=== PATIENT | male | born 1970 | race Caucasian/White ===

== ENCOUNTER 2016-10-01 09:22 | Day surgery (SDC) | payer MEDICAID ==
[~2016-10-01 09:22] MED LIST: ACETAMINOPHEN 500 MG TABLET PO PRN; HYDROmorphone HCL 2 MG/ML VIAL IV PRN; MAG HYDROX/ALUMINUM HYD/SIMETH 30 ML UDC PO PRN; MAGNESIUM HYDROXIDE 30 ML UDC PO PRN; ONDANSETRON HCL/PF 2 MG/ML VIAL IV PRN; PROMETHAZINE HCL 25 MG in DEXTROSE 5 % IN WATER 50 ML IV PRN; RINGERS SOLUTION,LACTATED 1,000 ML IV PRN; ROPIVACAINE HCL/PF 40 MG in NORMAL SALINE 16 ML IJ PRN; ZOLPIDEM TARTRATE 5 MG TABLET PO PRN; ceFAZolin SODIUM 1 GM VIAL IV PRN; diphenhydrAMINE HCL 50 MG/ML VIAL IV PRN
[2016-10-01] MEDS ORDERED: RINGERS SOLUTION,LACTATED 1,000 ML IV ONE (09:55)
[2016-10-01] MEDS ORDERED: BUPIVACAINE HCL/EPINEPHRINE 50 ML VIAL IJ ONE ×2 (10:30)
--- NOTE | 2016-10-01 11:13 | OR ---
Operative Report - Dictated Report Narrative: Date: 10/01/2016 Physician: Jeffrey Burnett M.D. Fitness And Wellness Manager: Kailash Clark PA-C Preoperative diagnosis: Left Knee pain Postoperative diagnosis: Left knee pain Procedure: Left knee diagnostic arthroscopy Anesthesia: MAC Plus local Complications: None Estimated blood loss: Minimal Tourniquet time: None Specimens: None Retained implants: None Drains: None Indications: Fernandez Is a 46 year-old male who has been followed in my clinic with complaints of knee pain consistent with suspected loose body versus medial meniscal pathology. He has undergone 2 prior medial meniscectomy as continues to have pain and catching/locking episodes. Physical exam and diagnostic imaging were consistent with these complaints and concern for possible medial meniscal pathology. Conservative measures have failed including, but not limited to, passage of time, activity modification, medications, and injections. The risks , benefits, and alternatives were discussed in clinic. The risks being , bleeding, infection, blood clots, nerve, tendon, ligament, blood vessel injury, persistent pain, arthrosis, need for additional procedures, and persistent symptoms. Consent was obtained in the clinic. Procedure: After marking the correct extremity in the preoperative holding area, a timeout was performed in the operating room. IV antibiotics consisting of 2 g of Ancef were administered prior to the procedure. A well-padded tourniquet was applied to the operative upper thigh. The leg was prepped and draped in a standard sterile fashion. 0.5% Marcaine with epinephrine was infused into the projected portal sites as well as the intra-articular space. A elvis incision was made for inferior lateral portal. A blunt trocar and cannula was introduced into the knee. The suprapatellar pouch revealed no loose bodies with a small medial plica. The medial patella facet showed no chondral changes. The lateral patella facet showed no chondral changes. The trochlea showed no chondral changes. The medial gutter revealed no loose bodies. The medial joint space was then entered utilizing a lateral post and valgus stress. A spinal needle was utilized for guidance into placement of an anterior medial portal. This was placed just superior to the medial meniscus ensuring that we could reach the posterior aspect of the medial joint space. A elvis incision was made in the site, and the probe was introduced to the knee. The medial joint space was examined, and the medial femoral condyle showed grade 2 chondral changes over the weightbearing surface. The medial tibial plateau showed grade 1 and small areas of grade 2 chondral change. The medial meniscus was probed and showed evidence of previous subtotal meniscectomy. The posterior horn and posterior half of the body were no longer present. The remaining anterior aspect of the body and anterior horn had some mild peripheral fraying but no significant tearing or instability with probing. The notch was then examined, and the ACL was noted to be intact. The PCL was noted to be intact. The lateral joint space was then examined using a varus force in the figure 4 position. Lateral femoral condyle showed no chondral changes. Lateral tibial plateau showed no chondral changes. The lateral meniscus showed no tearing and was stable to probing. The lateral gutter showed no loose bodies. Having identified the surgical pathology, a shaver was utilized in order to debride the medial plica. Once it was felt that we adequately addressed the pathology, the knee was thoroughly irrigated. The fluid was evacuated ensuring that we have removed all meniscal, chondral, and any other loose bodies. A final evaluation of the joint showed no additional pathology. The fluid was then evacuated of the knee , and the trocar and camera were removed from the joint. The wounds were closed with interrupted nylon after placing 20 mL of 0.2% ropivacaine into the joint. Dressings consisting of Xeroform, 4 x 4, ABD, soft roll, and an Amilcar were applied. All sponge, needle, blade, and instrument counts were correct prior to closing the wounds. The patient was awoken and transferred to the post -anesthesia care unit in stable condition.
[2016-10-01] MEDS ORDERED: HYDROcodone/ACETAMINOPHEN 1 EACH TABLET PO PRN (11:14)
[2016-10-01 12:11] VITALS: BP 126/70
[2016-10-01] MEDS ORDERED: SENNOSIDES/DOCUSATE SODIUM 1 TAB TABLET PO SCH (21:00)
== END 2016-10-01 09:23 | disposition home or self-care (01) ==
LOC: AMB 09:22
PROVIDERS: ATTEND Orthopaedic Surgery
PROC: 0SJD4ZZ Inspection of Left Knee Joint, Percutaneous Endoscopic Approach (ICD-10-PCS; principal; 2016-10-01 11:15)
DX: M25.562 Pain in left knee (principal)

== ENCOUNTER 2016-10-12 22:02 | Emergency (ER) | payer MEDICAID ==
--- NOTE | 2016-10-13 | ERNOTE ---
Abdominal HPI - General Chief Complaint: Abdominal Pain Time Seen by Provider: 10/12/16 23:52 Source: patient Exam Limitations: no limitations - Immun/Allergies/Home Medications Immunizatons: IMMUNIZATION HX Immunizations Up to Date No History of Influenza Vaccine Yes Hx Pneumococcal Vaccination No Allergies/Adverse Reactions: Allergies naproxen Adverse Reaction (Mild, Verified 10/12/16 22:41) "severe heartburn" Home Medications: HOME MEDICATIONS Ibuprofen [Motrin] 200 mg PO Q6H PRN 09/25/16 [Last Taken Unknown] - History of Present Illness Narrative: Pt had right flank pain and was seen in the walk-in clinic earlier today. They found pancreatic enzymes elevated and ordered U/S. Pancreas was suboptimally seen. No hydronephrosis was seen in either kidney Timing: constant Quality: moderate Activities at Onset: none Prior Abdominal Problems: Present: other - chronic abdominal pain and has had multiple colonoscopies due to father having colon CA. Review of Systems - Review of Systems Constitutional: Absent: recent illness, fever, chills EYE: Present: no symptoms reported ENT: Present: no symptoms reported Respiratory: Present: no symptoms reported Cardiology: Present: no symptoms reported Gastrointestinal/Abdominal: Present: See HPI, abdominal pain - chronic and intermittent, not really changed lately Genitourinary: Present: See HPI. Absent: frequency, pain, dysuria Musculoskeletal: Present: back pain Neurological: Present: no symptoms reported Endocrine: Present: no symptoms reported Hematologic/Lymphatic: Present: no symptoms reported Psych: Present: no symptoms reported - Patient's Past Medical History Patient History - Medical: Arthritis, Headache, Migraines, Other - chronic abdominal pain Patient History - Cardiac/Respiratory: No pertinent hx Patient History - Cancer: No Hx of Cancer Patient History - Surgical Procedures: Colonoscopy, EGD, Other Patient History - Other: None - Family History Mother Family History - Medical: Diabetes Type 2, Other Family History - Cardiac/Respiratory: No pertinent hx Family History - Cancer: Other Father Family History - Medical: No pertinent hx Family History - Cardiac/Respiratory: No pertinent hx Family History - Cancer: Colon - Social History Living Situations: home Smoking Status: Current every day smoker Alcohol Use: none Drug Use: marijuana - Immunizations Immunizations Up to Date: No Hx Pneumococcal Vaccination: No History of Influenza Vaccine: Yes Physical Exam - Physical Exam General Appearance: Present: wd/wn, alert, no apparent distress Neck: Present: normal inspection, nontender, supple Respiratory: Present: no respiratory distress, no accessory muscle use Cardiovascular/Chest: Present: regular rate, rhythm, no murmur Gastrointestinal/Abdominal: Present: nondistended, soft, tenderness - epigastric mild. Absent: guarding, rebound Back Exam: Present: CVA tenderness (R) - mild Extremity Exam: Present: normal inspection, non-tender, no edema, normal range of motion Neurological Exam: Present: alert, oriented, normal mood/affect, no motor/ sensory deficits Skin Exam: Present: normal color, warm/dry Lymphatic Exam: Present: no adenopathy ED Progress - Results and Orders Patient's Lab Results:: I have reviewed the patient's lab results. Results and Orders: Laboratory Tests 10/12/16 10/12/16 14:50 14:50 WBC 10.4 Hgb 16.7 Hct 49.8 Plt Count 288 Sodium 140 Potassium 4.6 D Chloride 104 Carbon Dioxide 27.9 Anion Gap 12.7 BUN 11 Creatinine 1.10 Random Glucose 91 Calcium 9.3 Total Bilirubin 0.5 AST 10 ALT 25 Alkaline Phosphatase 69 C-Reactive Prot, Quant 0.3 Total Protein 7.9 Albumin 4.2 Amylase 120 H Lipase 1022 H - Vital Signs Patient's Vital Signs:: I have reviewed the patient's vital signs. Vital Signs: Vital Signs 10/12/16 22:36 Temperature 36.1 C L Pulse Rate 80 Respiratory 18 Rate Blood Pressure 166/91 O2 Sat by Pulse 97 Oximetry - CT/Ultrasound CT/Ultrasound Narrative: No pancreas abnormalities noted. possible distal illeum/ proximal cecum mild thickening but probably artifact. - Progress/Reassessment Chief Complaint: Abdominal Pain Progress:: Improved - Despite elevated enzymes pt is relatively mildly symptomatic. Pt stopped and got a cheeseburger before coming back to the hospital this time. He had no increase in his symptoms from eating. Discussed clear liquid diet to help the pancreas rest. Discussed warning signs that he should return to the ED for. Departure - Departure Clinical Impression: Pancreatitis Qualifiers: Chronicity: acute Pancreatitis type: idiopathic Acute pancreatitis complication : no infection or necrosis Qualified Code(s): K85.00 - Idiopathic acute pancreatitis without necrosis or infection Disposition: Home Follow Up Needed Condition: Fair Instructions: Acute Pancreatitis, [id number], Low-Fat Diet for Pancreatitis or Gallbladder Conditions Additional Instructions: clear liquids for 2-3 days. Return to ER if you have increasing pain, nausea or vomiting. Have labs drawn tomorrow morning. See your regular doctor as soon as possible for follow up on repeat lab work
[2016-10-13] MEDS ORDERED: DIATRIZOATE MEGLU/DIATRIZO SOD 30 ML BTL ONE (00:21)
[2016-10-13] MEDS ORDERED: DIATRIZOATE MEGLU/DIATRIZO SOD 30 ML BTL PO ONE (00:30)
[2016-10-13] MEDS ORDERED: ONDANSETRON HCL/PF 2 MG/ML VIAL IV ONE (00:45)
[2016-10-13] MEDS ORDERED: NALBUPHINE HCL 20 MG/ML AMPUL IV ONE (00:46)
[2016-10-13] MEDS ORDERED: NALBUPHINE HCL 20 MG/ML AMPUL ONE (01:10)
[2016-10-13] MEDS ORDERED: ONDANSETRON HCL/PF 2 MG/ML VIAL ONE (01:10)
[2016-10-13 03:59] VITALS: BP 132/83
== END 2016-10-13 03:41 | disposition home or self-care (01) ==
LOC: ER 22:02
DX: K85.00 Idiopathic acute pancreatitis without necrosis or infection (principal); F17.200 Nicotine dependence, unspecified, uncomplicated

== ENCOUNTER 2016-12-15 08:38 | Inpatient (IN) | payer MEDICAID ==
[2016-12-15] MEDS ORDERED: DIATRIZOATE MEGLU/DIATRIZO SOD 30 ML BTL ONE (09:30)
[2016-12-15 09:31] LABS: Hematocrit 43.6 % (42.0-52.0); Hemoglobin 14.9 gm/dL (13.5-18.0); Mean Cell Volume 87.4 fl (78-100); Mean Corpuscular Hemoglobin 29.9 pg (27-31); Mean Corpuscular Hgb Conc 34.2 g/dl (32-36); Neutrophil # 10.3 K/mm3 (1.3-6.0); Neutrophil % 71.2 % (42-75.0); Platelet Count 299 K/mm3 (150-450); Red Blood Count 4.99 M/mm3 (4.7-6.0); Red Cell Distribution Width 12.4 % (11.5-14.0); White Blood Count 14.5 K/mm3 (4.0-10.5)
[2016-12-15] MEDS ORDERED: DIATRIZOATE MEGLU/DIATRIZO SOD 30 ML BTL PO ONE (09:42)
[2016-12-15 09:51] LABS: Urine Bilirubin Negative (NEGATIVE); Urine Blood 50 /ul (NEGATIVE); Urine Ketone Negative (NEGATIVE); Urine Nitrite Negative (NEGATIVE); Urine Protein 15 mg/dL (NEGATIVE); Urine Specific Gravity >=1.030 SP.GR. (1.005-1.030); Urine Urobilinogen Normal (NORMAL)
[2016-12-15 09:52] LABS: Albumin * 3.6 gm/dl (3.4-5.0); Anion Gap 14.4 mmol/L (6.8-13.8); BUN/Creatinine Ratio 11.2 (9.0-21.6); Bilirubin, Total 0.7 mg/dL (0.0-1.1); Ca. Corrected For Albumin 8.8 mg/dL (8.4-10.2); Calcium * 8.8 mg/dL (7.9-10.9); Carbon Dioxide 24.5 mmol/L (24-32.6); Potassium 3.9 mmol/L (3.4-4.6); Total Protein 7.9 gm/dL (6.2-8.2)
--- NOTE | 2016-12-15 09:53 | ERNOTE ---
Abdominal HPI - General Chief Complaint: Abdominal Pain Time Seen by Provider: 12/15/16 09:32 Source: patient - Immun/Allergies/Home Medications Immunizatons: IMMUNIZATION HX Immunizations Up to Date Yes History of Influenza Vaccine Yes Hx Pneumococcal Vaccination No Allergies/Adverse Reactions: Allergies naproxen Adverse Reaction (Mild, Verified 12/15/16 09:15) "severe heartburn" Home Medications: HOME MEDICATIONS Gabapentin 900 mg PO TID 12/15/16 [Last Taken Unknown] - History of Present Illness Narrative: patient has a history of diverticulitis. He has had abd pain since yesterday morning. he had some nausea then but none now. He has no diarrhea. Review of Systems - Review of Systems Constitutional: Present: malaise EYE: Present: no symptoms reported ENT: Present: no symptoms reported Respiratory: Present: no symptoms reported Cardiology: Present: no symptoms reported Gastrointestinal/Abdominal: Present: See HPI - Patient's Past Medical History Patient History - Medical: Arthritis, Headache, Migraines, Other Patient History - Cardiac/Respiratory: No pertinent hx Patient History - Cancer: No Hx of Cancer Patient History - Surgical Procedures: Colonoscopy, EGD, Other Patient History - Other: None - Family History Mother Family History - Medical: Diabetes Type 2, Other Family History - Cardiac/Respiratory: No pertinent hx Family History - Cancer: Other Father Family History - Medical: No pertinent hx Family History - Cardiac/Respiratory: No pertinent hx Family History - Cancer: Colon - Social History Living Situations: home Abuse History: No History of abuse Psych History: No pertinent hx Smoking Status: Current every day smoker Have you smoked in the past 12 months: Yes Alcohol Use: none Drug Use: marijuana - Immunizations Immunizations Up to Date: Yes Hx Pneumococcal Vaccination: No History of Influenza Vaccine: Yes Physical Exam - Physical Exam General Appearance: Present: wd/wn, alert, mild distress - due to abdominal pain Eye Exam: Normal inspection: bilateral, PERRL: bilateral, EOMI: bilateral Ears, Nose, Throat: Present: normal ENT inspection Neck: Present: normal inspection, nontender Respiratory: Present: no respiratory distress, normal breath sounds, no accessory muscle use, chest nontender, lungs clear Cardiovascular/Chest: Present: regular rate, rhythm, no murmur, normal peripheral pulses Gastrointestinal/Abdominal: Present: other - pt has distant bowel sounds. his belly is slightly tense and diffusely tender on direct palpation. There appears to be no rebound on my exam. he is too uncomfortable for me to palpate deep to feel for masses. Extremity Exam: Present: normal inspection Neurological Exam: Present: alert, oriented, normal mood/affect, no motor/ sensory deficits ED Progress - Results and Orders Patient's Lab Results:: I have reviewed the patient's lab results. - Vital Signs Patient's Vital Signs:: I have reviewed the patient's vital signs. Vital Signs: Vital Signs 12/15/16 09:10 Temperature 37.4 C Pulse Rate 84 Respiratory 16 Rate Blood Pressure 133/61 O2 Sat by Pulse 97 Oximetry - Progress/Reassessment Chief Complaint: Abdominal Pain Plan - Plan Plan: pt has Diverticulitis. Dr. Mosqueda. pt is to be admitted to [facility] service for care with Dr. Mosqueda to consult Departure - Departure Clinical Impression: Diverticulitis Qualifiers: Diverticulitis site: large intestine Diverticulitis bleeding: without bleeding Diverticulitis complication: with perforation Qualified Code(s): K57.20 - Diverticulitis of large intestine with perforation and abscess without bleeding Disposition: [facility] Condition: Good
[2016-12-15 10:04] LABS: Urine Appearance Clear; Urine Bacteria None Seen; Urine Color Dark Yellow; Urine WBC TRACE /hpf (0-5)
[2016-12-15 10:05] LABS: Urine Mucus Many - 3+
[2016-12-15] MEDS ORDERED: NORMAL SALINE 1,000 ML IV ONE (10:52)
[2016-12-15] MEDS ORDERED: ONDANSETRON HCL/PF 2 MG/ML VIAL IV ONE (12:10)
[2016-12-15] MEDS ORDERED: HYDROmorphone HCL 1 MG/ML DISP.SYRIN IV ONE ×2 (12:10→14:59)
[2016-12-15] MEDS ORDERED: HYDROmorphone HCL 1 MG/ML DISP.SYRIN ONE (12:11)
[2016-12-15] MEDS ORDERED: ONDANSETRON HCL/PF 2 MG/ML VIAL ONE (12:11)
--- NOTE | 2016-12-15 13:18 | CONS ---
[facility] - General Date of Service: 12/15/16 Narrative: Pt is a very pleasant 46 y/o white male who presents to the ER with c/o nausea and LLQ abdominal pain. He was admitted for 4 days about 3 weeks ago in [place], [place] with what he describes as perforated diverticulitis. He states he was on an expensive IV antibiotic that starts with a "V" and that post discharge took oral antibiotics for two weeks. He had a follow-up visit scheduled with a placement secretary on Wednesday of this week. His father has a history of colon cancer and he has already begun surveillance colonoscopy, his last being about 5 years ago. He has a known history of diverticular disease from that scope. He received a call from [place], [place] that his mother is imminently terminal from cirrhosis of the liver but was in so much pain that he reported here instead. His WBC is 14K with shift. CT shows a contained perf into the sigmoid mesentery without abscess. There is thickening of the sigmoid colon and malignancy could not be ruled-out. There is no free air. Source: patient, RN/MD, old records Exam Limitations: no limitations - History of Present Illness Timing/Duration: constant Severity: severe Associated Symptoms: nausea Allergies/Adverse Reactions: Allergies naproxen Adverse Reaction (Mild, Verified 12/15/16 09:15) "severe heartburn" Home Medications: Home Medications Medication Instructions Recorded Last Taken Gabapentin 900 mg PO TID 12/15/16 Unknown - Patient's Past Medical History Patient History - Medical: Arthritis, Headache, Migraines, Other Patient History - Cardiac/Respiratory: No pertinent hx Patient History - Cancer: No Hx of Cancer Patient History - Surgical Procedures: Colonoscopy, EGD, Other Patient History - Other: None - Family History Mother Family History - Medical: Diabetes Type 2, Other Family History - Cardiac/Respiratory: No pertinent hx Family History - Cancer: Other Father Family History - Medical: No pertinent hx Family History - Cardiac/Respiratory: No pertinent hx Family History - Cancer: Colon - Social History Living Situations: home Abuse History: No History of abuse Psych History: No pertinent hx Smoking Status: Current every day smoker Have you smoked in the past 12 months: Yes Alcohol Use: none Drug Use: marijuana - Immunizations Immunizations Up to Date: Yes Hx Pneumococcal Vaccination: No History of Influenza Vaccine: Yes Procedures DRAINAGE OF RIGHT LOWER LEG SKIN, EXTERNAL APPROACH (04/04/16) INSPECTION OF LEFT KNEE JOINT, PERC ENDO APPROACH (10/01/16) Physical Examination - Exam Vital Signs: Vital Signs - Last Taken Temp 36.4 C L 12/15/16 12:46 Pulse 78 12/15/16 12:46 Resp 18 12/15/16 12:46 BP 135/91 12/15/16 12:46 Pulse Ox 99 12/15/16 12:46 O2 Oxygen Delivery Method Room Air Constitutional: Present: Alert, Oriented x3, Cooperative, Mild distress ENT Exam: Present: normal ENT inspection Eye Exam: bilateral eye: normal inspection Neck: Present: non-tender, full range of motion, normal inspection, trachea midline Respiratory: Present: normal breath sounds, no respiratory distress Cardiovascular/Chest: Present: regular rate, rhythm Abdomen: Present: Normal bowel sounds, guarding - LLQ. Non-tender in other quadrants /Rectal: Present: Exam deferred Extremity: Present: normal inspection Skin Exam: Present: normal color, warm/dry Neurologic: Present: no motor/sensory deficits - Assessments/Findings (1) Diverticulitis of large intestine with perforation without bleeding Problem: Acute (2) Localized peritonitis Diagnosis(s): A: Confined perforation of sigmoid diverticulitis without abscess. Localized peritonitis Family history colon CA P: Non-operative attempt at management is reasonable. Admission and serial examination will be required. Cannot sanction a trip to [place], [place] at this time unfortunately. We discussed numerous possible outcomes. If non-op is successful will need colonoscopy to r/o malignancy and consider elective resection of diseased sigmoid. If abscess develops may require percutaneous drainage. If perforation becomes free with generalized peritonitis a Rohit procedure will be required. He seems to understand and agrees to admission by the Hospitalist service. Problem: Acute
[2016-12-15] MEDS ORDERED: ONDANSETRON HCL/PF 2 MG/ML VIAL IV PRN (14:59)
[2016-12-15] MEDS ORDERED: diphenhydrAMINE HCL 50 MG/ML VIAL IV PRN (15:22)
[2016-12-15] MEDS ORDERED: NALOXONE HCL 1 MG/1 ML SYRG IV PRN (15:22)
[2016-12-15] MEDS ORDERED: HYDROmorphone HCL IN 0.9% NACL 50 ML CARTRIDGE IV PRN (15:22)
[2016-12-15] MEDS ORDERED: CIPROFLOXACIN LACTATE/D5W 400 MG in Premix Bag 1 BAG IV SCH (15:30)
[2016-12-15] MEDS: NORMAL SALINE 1,000 ML IV PRN ×2 (15:49→22:15)
--- NOTE | 2016-12-15 16:28 | HP ---
Chief Complaint - Chief Complaint Date of Service: 12/15/16 Time of Service: 15:20 Chief Complaint: abdominal pain History of Present Illness: Fernandez is a 46 year old male with a PMH of colitis, depression, anxiety, hematuria , and headaches who presented to the emergency room with abdominal pain. Patient states that he way laying on the cough when his abdomen felt like "someone was stabbing it with a knife". Presented to [facility] ER for eval. CT in ER showed diverticulitis with contained perforation into the sigmoid mesentery without abscess. general surgery has asked the hospitalist service to medically manage the patient with conservative treatment for now as they follow along as call center support consultant. Patient has a history approximately 4 weeks ago with similar symptoms in which he describes being admitted for perforated diverticulitis, admitted for 4 days for IV antibiotics and then discharged home with oral antibiotics. Patient has known diverticular disease from prior colonscopy. CBC showed elevated ebc at 14,000 with left shift. patient denies any blood or mucous in his stool recently but does state that his stools are "pure water". c/o chills. no cp. pt states that he has a history of GI issues in the past, including stomach ulcer and hiatal hernia. - Patient's Past Medical History Patient History - Medical: Arthritis, Depression, Headache, Migraines, Other Patient History - Cardiac/Respiratory: No pertinent hx Patient History - Cancer: No Hx of Cancer Patient History - Surgical Procedures: Colonoscopy, EGD, Other Patient History - Other: None - Family History Mother Family History - Medical: Diabetes Type 2, Other Family History - Cardiac/Respiratory: No pertinent hx Family History - Cancer: Other Father Family History - Medical: No pertinent hx Family History - Cardiac/Respiratory: No pertinent hx Family History - Cancer: Colon - Social History Living Situations: home Abuse History: No History of abuse Psych History: No pertinent hx Smoking Status: Current every day smoker Have you smoked in the past 12 months: Yes Alcohol Use: none Drug Use: marijuana - Immunizations Immunizations Up to Date: Yes Hx Pneumococcal Vaccination: No History of Influenza Vaccine: Yes Review Of Systems (GEN) - Review of Systems Generalized/Overall Review: Present: Chills EENTM: Present: No Symptoms Reported Respiratory: Present: No Symptoms Reported Cardiac: Present: No Symptoms Reported Abdominal: Present: Abdominal Pain, Diarrhea. Absent: Nausea, Vomiting, Hematemesis, Constipation, Melena, Bright blood from rectum Genitourinary: Present: Hematuria Musculoskeletal: Present: No Symptoms Reported Neurological: Present: No Symptoms Reported Skin: Present: No Symptoms Reported Endocrine: Present: No Symptoms Reported Misc: All systems neg except as marked Immunizations: IMMUNIZATION HX Immunizations Up to Date Yes History of Influenza Vaccine Yes Hx Pneumococcal Vaccination No Allergies/Adverse Reactions: Allergies Allergy/AdvReac Type Severity Reaction Status Date / Time naproxen AdvReac Mild "severe Verified 12/15/16 13:20 heartburn" Home Medications: HOME MEDICATIONS Aspirin/Acetaminophen/Caffeine [Excedrin Migraine Caplet] 1 each PO DAILY PRN [Last Taken Unknown] Gabapentin 900 mg PO TID 12/15/16 [Last Taken Unknown] Exam - Exam Vital Signs: Vital Signs - Last Taken Temp 37.1 C 12/15/16 15:55 Pulse 70 12/15/16 15:55 Resp 17 12/15/16 15:55 BP 116/78 12/15/16 15:55 Pulse Ox 96 12/15/16 15:55 Constitutional: Present: Alert, Oriented x3, Cooperative, No distress ENT Exam: Present: hearing grossly normal Eye Exam: bilateral eye: normal inspection Neck: Present: full range of motion, supple Back Exam: Present: normal inspection Breasts: Present: Exam deferred Respiratory: Present: chest non-tender, lungs clear, normal breath sounds, no respiratory distress, no accessory muscle use Cardiovascular/Chest: Present: normal peripheral pulses, regular rate, rhythm, no chest tenderness Peripheral Pulses: carotid (R): 2+, carotid (L): 2+, radial (R): 2+, radial (L) : 2+ Abdomen: Present: tender - LLQ, non tender in all other quads, guarding, other - loud, hyperactive bowel sounds /Rectal: Present: Exam deferred Extremity: Present: normal range of motion, non-tender, normal inspection Skin Exam: Present: normal color, warm/dry, no cyanosis Neurologic: Present: alert, oriented x 3 Diagnostic Studies: Laboratory Results WBC 14.5 K/mm3 (4.0-10.5) H 12/15/16 09:25 RBC 4.99 M/mm3 (4.7-6.0) 12/15/16 09:25 Hgb 14.9 gm/dL (13.5-18.0) 12/15/16 09:25 Hct 43.6 % (42.0-52.0) 12/15/16 09:25 MCV 87.4 fl (78-100) 12/15/16 09:25 MCH 29.9 pg (27-31) 12/15/16 09:25 MCHC 34.2 g/dl (32-36) 12/15/16 09:25 RDW 12.4 % (11.5-14.0) 12/15/16 09:25 Plt Count 299 K/mm3 (150-450) 12/15/16 09:25 MPV 9.0 fl (6.0-9.5) 12/15/16 09:25 Immature Gran % (Auto) 0.80 % (0.001-0.429) H 12/15/16 09:25 Immature Gran # (Auto) 0.11 K/mm3 (0.000-0.0310) H 12/15/16 09:25 Neutrophils % 71.2 % (42-75.0) 12/15/16 09:25 Lymphocytes % 18.3 % (20-51) L 12/15/16 09:25 Monocytes % 7.2 % (0.0-9) 12/15/16 09:25 Eosinophils % 2.0 % (0.0-3.0) 12/15/16 09:25 Basophils % 0.5 % (0.0-1.0) 12/15/16 09:25 Nucleated RBC % 0.0 k/mm3 (0-1) 12/15/16 09:25 Neutrophils # 10.3 K/mm3 (1.3-6.0) H 12/15/16 09:25 Lymphocytes # 2.7 k/mm3 (1.5-3.5) 12/15/16 09:25 Monocytes # 1.0 k/mm3 (0.0-1.0) 12/15/16 09:25 Eosinophils # 0.3 k/mm3 (0.0-0.7) 12/15/16 09:25 Absolute Basophils 0.1 k/mm3 (0.0-0.1) 12/15/16 09:25 Sodium 137 mmol/L (132-142) 12/15/16 09:25 Plasma Sodium 137 mmol/L (130-142) 12/15/16 09:25 Potassium 3.9 mmol/L (3.4-4.6) 12/15/16 09:25 Chloride 102 mmol/L (97-106) 12/15/16 09:25 Carbon Dioxide 24.5 mmol/L (24-32.6) 12/15/16 09:25 Anion Gap 14.4 mmol/L (6.8-13.8) H 12/15/16 09:25 BUN 11 mg/dL (6-23) 12/15/16 09:25 Creatinine 0.98 mg/dL (0.4-1.4) 12/15/16 09:25 Est GFR (Non-Af Amer) 88 mL/min (60-130) 12/15/16 09:25 BUN/Creatinine Ratio 11.2 (9.0-21.6) 12/15/16 09:25 Random Glucose 103 mg/dL (70-110) 12/15/16 09:25 Calcium 8.8 mg/dL (7.9-10.9) 12/15/16 09:25 Calcium Adj for Albumin 8.8 mg/dL (8.4-10.2) 12/15/16 09:25 Total Bilirubin 0.7 mg/dL (0.0-1.1) 12/15/16 09:25 AST 11 U/L (0-48) 12/15/16 09:25 ALT 22 U/L (19-67) 12/15/16 09:25 Alkaline Phosphatase 76 U/L (50-170) 12/15/16 09:25 Total Protein 7.9 gm/dL (6.2-8.2) 12/15/16 09:25 Albumin 3.6 gm/dl (3.4-5.0) 12/15/16 09:25 Amylase 38 U/L (25-115) 12/15/16 09:25 Lipase 96 U/L (73-393) 12/15/16 09:25 Urine Color Dark yellow 12/15/16 09:37 Urine Appearance Clear 12/15/16 09:37 Urine pH 6.0 pH (5.0-7.0) 12/15/16 09:37 Ur Specific [place] >=1.030 SP.GR. (1.005-1.030) 12/15/16 09:37 Urine Protein 15 mg/dL (NEGATIVE) H 12/15/16 09:37 Urine Glucose (UA) Negative mg/dL (NEGATIVE) 12/15/16 09:37 Urine Ketones Negative mg/dL (NEGATIVE) 12/15/16 09:37 Urine Blood 50 /ul (NEGATIVE) H 12/15/16 09:37 Urine Nitrate Negative (NEGATIVE) 12/15/16 09:37 Urine Bilirubin Negative mg/dl (NEGATIVE) 12/15/16 09:37 Prot Sulfosalicylic Acd Negative mg/dL (0) 12/15/16 09:37 Urine Urobilinogen Normal EU/dl (NORMAL) 12/15/16 09:37 Ur Leukocyte Esterase Negative /ul (NEGATIVE) 12/15/16 09:37 Urine RBC 5-10 /hpf (0-5) H 12/15/16 09:37 Urine WBC Trace /hpf (0-5) 12/15/16 09:37 Ur Epithelial Cells Trace /hpf (0-5) 12/15/16 09:37 Urine Bacteria None seen (NONE) 12/15/16 09:37 Urine Mucus Many - 3+ (NONE) H 12/15/16 09:37 Urine Culture Comments No culture indicated 12/15/16 09:37 Assessment/Plan - Narrative Narrative: Fernandez is a 46 year old male admitted with abdominal pain, CT scan shows contained perforated sigmoid mesentery colon without abscess. wbc shows leukocytosis with elevated wbc with left shift. will start pt on iv cipro and iv flagyl until abdominal pain is improved. keep npo until abdominal pain is improved - once improved may start clear liquid diet. will also start on iv protonix. 4 weeks ago pt had strong iv and oral abx for similar diverticulitis episode - will check stool for c diff as a precaution. has had poor oral intake due to abdominal pain - start iv fluids to rehydrate while npo - these may need to be changed to a solution with D5 in them tomorrow if still NPO tomorrow. will use dilaudid outdoor recreation specialist for pain management. denies n/v. medical record show PMH of anxiety and depression but pt is not on any medication for chronic management - will monitor pt's mental status while admitted. will attempt conservative management of patient in conjunction with general surgery. monitor closely for worsening signs and symptoms, including worsening abdominal pain. - Assessment/Plan (1) Diarrhea Problem: Acute Qualifiers: Diarrhea type: unspecified type Qualified Code(s): R19.7 - Diarrhea, unspecified (2) Leukocytosis Problem: Acute Qualifiers: Leukocytosis type: unspecified Qualified Code(s): D72.829 - Elevated white blood cell count, unspecified (3) Pain management Problem: Acute (4) Depression Problem: Chronic Qualifiers: Depression Type: unspecified Qualified Code(s): F32.9 - Major depressive disorder, single episode, unspecified (5) Anxiety Problem: Chronic (6) Diverticulitis of large intestine with perforation without bleeding Problem: Acute (7) Localized peritonitis Problem: Acute
[2016-12-15] MEDS: CIPROFLOXACIN LACTATE/D5W 400 MG/200 ML BAG IV SCH (17:33)
[2016-12-15] MEDS: GABAPENTIN 300 MG CAPSULE PO SCH (17:34)
[2016-12-15] MEDS: PANTOPRAZOLE SODIUM 40 MG in NORMAL SALINE 100 ML IV SCH (19:02)
[2016-12-16] MEDS: NORMAL SALINE 1,000 ML IV PRN (03:11)
[2016-12-16] MEDS: CIPROFLOXACIN LACTATE/D5W 400 MG/200 ML BAG IV SCH ×2 (04:49→16:31)
[2016-12-16 06:00] LABS: Hematocrit 36.3 % (42.0-52.0); Hemoglobin 12.3 gm/dL (13.5-18.0); Mean Cell Volume 89.4 fl (78-100); Mean Corpuscular Hemoglobin 30.3 pg (27-31); Mean Corpuscular Hgb Conc 33.9 g/dl (32-36); Mean Platelet Volume 9.1 fl (6.0-9.5); Neutrophil # 7.7 K/mm3 (1.3-6.0); Neutrophil % 73.2 % (42-75.0); Platelet Count 235 K/mm3 (150-450); Red Blood Count 4.06 M/mm3 (4.7-6.0); Red Cell Distribution Width 12.2 % (11.5-14.0); White Blood Count 10.5 K/mm3 (4.0-10.5)
[2016-12-16 06:05] LABS: Anion Gap 11.6 mmol/L (6.8-13.8); BUN/Creatinine Ratio 8.6 (9.0-21.6); Carbon Dioxide 25.2 mmol/L (24-32.6); Estimated Creat Clear 102.5; Potassium 3.8 mmol/L (3.4-4.6)
[2016-12-16] MEDS: GABAPENTIN 300 MG CAPSULE PO SCH ×3 (08:43→16:33)
--- NOTE | 2016-12-16 10:02 | PN ---
Subjective - Date and Time Seen Date: 12/16/16 Time: 09:35 Subjective Narrative: Fernandez is a 46 year old male with a PMH of colitis, depression, anxiety, hematuria , and headaches who presented to the emergency room with abdominal pain. Patient states that he way laying on the cough when his abdomen felt like "someone was stabbing it with a knife". Presented to [facility] ER for eval. CT in ER showed diverticulitis with contained perforation into the sigmoid mesentery without abscess. general surgery has asked the hospitalist service to medically manage the patient with conservative treatment for now as they follow along as mental health consultant. Patient has a history approximately 4 weeks ago with similar symptoms in which he describes being admitted for perforated diverticulitis, admitted for 4 days for IV antibiotics and then discharged home with oral antibiotics. Patient has known diverticular disease from prior colonscopy. CBC showed elevated ebc at 14,000 with left shift. patient denies any blood or mucous in his stool recently but does state that his stools are "pure water". c/o chills. no cp. pt states that he has a history of GI issues in the past, including stomach ulcer and hiatal hernia. on 12/16/16 - overnight Fernandez has done well. no n/v. still with diarrhea. stool sample sent this am to check for c diff. abdominal pain improved to 2-3 out of 10. vss. NS currently running at 250 ml/hr. currently on iv cipro and iv flagyl to cover for diverticulitis flare with perf. has used 3.8 mg of dilaudid since color tester pump was started. currently NPO. surgery team following. Objective - Review of Systems Generalized/Overall Review: Reports: No Symptoms Reported EENTM: Reports: No Symptoms Reported Respiratory: Reports: No Symptoms Reported Cardiac: Reports: No Symptoms Reported Abdominal: Reports: Abdominal Pain, Diarrhea. Denies: Nausea, Vomiting, Hematemesis, Constipation, Bright blood from rectum Genitourinary Symptoms: Reports: No Symptoms Reported Musculoskeletal Complaints: Reports: No Symptoms Reported Neurological: Reports: No Symptoms Reported Skin: Reports: No Symptoms Reported Endocrine: Reports: No Symptoms Reported Misc: All systems neg except as marked - Vitals Vitals: Last Vital Signs Temp 37 C 12/16/16 07:00 Pulse 62 12/16/16 07:00 Resp 18 12/16/16 07:00 BP 127/76 12/16/16 07:00 Pulse Ox 98 12/16/16 07:00 - Abnormal Lab Findings Abnormal Lab Findings: Abnormal Lab Results 12/16/16 12/16/16 Range/Units 05:47 05:47 RBC 4.06 L (4.7-6.0) M/mm3 Hgb 12.3 L (13.5-18.0) gm/dL Hct 36.3 L (42.0-52.0) % Immature Gran % (Auto) 0.50 H (0.001-0.429) % Immature Gran # (Auto) 0.05 H (0.000-0.0310) K/mm3 Lymphocytes % 16.3 L (20-51) % Neutrophils # 7.7 H (1.3-6.0) K/mm3 BUN/Creatinine Ratio 8.6 L (9.0-21.6) Random Glucose 112 H (70-110) mg/dL - Exam Constitutional: Present: Alert, Oriented x3, Cooperative, No distress ENT Exam: Present: hearing grossly normal Neck: Present: full range of motion, supple Breasts: Present: Exam deferred Respiratory: Present: chest non-tender, lungs clear, normal breath sounds, no respiratory distress, no accessory muscle use Cardiovascular/Chest: Present: normal peripheral pulses, regular rate, rhythm, no chest tenderness Abdomen: Present: Normal bowel sounds, soft, nondistended, tender - LLQ with some tenderness expansion into the RLQ - both are mild in nature. much improved since yesterday. /Rectal: Present: Exam deferred Extremity: Present: normal range of motion, non-tender, normal inspection Skin Exam: Present: normal color, warm/dry, no cyanosis Neurologic: Present: alert, oriented x 3 Assessment/Plan - Problems/Diagnosis (1) Diarrhea Problem: Acute Qualifiers: Diarrhea type: unspecified type Qualified Code(s): R19.7 - Diarrhea, unspecified Narrative: check for c diff - results pending. currently on iv cipro/flagyl. likely from diverticulitis flare with perf. (2) Leukocytosis Problem: Resolved Qualifiers: Leukocytosis type: unspecified Qualified Code(s): D72.829 - Elevated white blood cell count, unspecified Narrative: has resolved in last 24 hours. currently on iv cipro / flagyl. likely from diverticulitis flare with perf. (3) Pain management Problem: Acute Narrative: currently on dilaudid color tester pump. once surgery gives the okay to transition to oral diet will wean pump to iv push dilaudid only and then to oral pain meds. (4) Depression Problem: Chronic Qualifiers: Depression Type: unspecified Qualified Code(s): F32.9 - Major depressive disorder, single episode, unspecified (5) Anxiety Problem: Chronic (6) Diverticulitis of large intestine with perforation without bleeding Problem: Acute Narrative: pain much improved since last night. currently on iv cipro/flagyl. surgery following. still with mild to moderate abdominal pain this am. keep NPO until abdominal pain resolved. monitor closely. admission likely to take a total of 3-4 days - make inpatient status. if ab pain continues to improve -> conservative management. if ab pain worsens -> will likely need surgical intervention. (7) Localized peritonitis Problem: Acute Narrative: pain has improved. continue to monitor.
[2016-12-16] MEDS: DEXTROSE 5%-NORMAL SALINE 1,000 ML IV PRN ×2 (10:04→13:58)
--- NOTE | 2016-12-16 10:24 | PN ---
Subjective - Date and Time Seen Date: 12/16/16 Time: 10:19 Subjective Narrative: FU Confined sigmoid perf without abscess or bleeding. States having watery BMs. These are C. diff negative. Pain significantly improved. WBC now normal. Objective - Review of Systems Misc: All systems neg except as marked - Vitals Vitals: Last Vital Signs Temp 37 C 12/16/16 07:00 Pulse 62 12/16/16 07:00 Resp 18 12/16/16 07:00 BP 127/76 12/16/16 07:00 Pulse Ox 98 12/16/16 07:00 - Abnormal Lab Findings Abnormal Lab Findings: Abnormal Lab Results 12/16/16 12/16/16 Range/Units 05:47 05:47 RBC 4.06 L (4.7-6.0) M/mm3 Hgb 12.3 L (13.5-18.0) gm/dL Hct 36.3 L (42.0-52.0) % Immature Gran % (Auto) 0.50 H (0.001-0.429) % Immature Gran # (Auto) 0.05 H (0.000-0.0310) K/mm3 Lymphocytes % 16.3 L (20-51) % Neutrophils # 7.7 H (1.3-6.0) K/mm3 BUN/Creatinine Ratio 8.6 L (9.0-21.6) Random Glucose 112 H (70-110) mg/dL - Exam Constitutional: Present: Alert, Oriented x3, Cooperative, No distress ENT Exam: Present: normal ENT inspection Neck: Present: normal inspection Respiratory: Present: no respiratory distress, no accessory muscle use Abdomen: Present: soft, tender - Mildly tender to palpation in LLQ. Other quadrants are non-tender. Skin Exam: Present: normal color, warm/dry Neurologic: Present: no motor/sensory deficits Assessment/Plan Plan Narrative: A: Improving diverticulitis. Significantly improving localized peritonitis. P: Start clear liquids. Serial abdominal exams. - Problems/Diagnosis (1) Diverticulitis of large intestine with perforation without bleeding Problem: Acute (2) Localized peritonitis Problem: Acute
[2016-12-16] MEDS ORDERED: ALPRAZolam 0.25 MG TABLET PO PRN (14:43)
[2016-12-16] MEDS ORDERED: oxyCODONE HCL/ACETAMINOPHEN 1 TAB TABLET PO PRN ×2 (14:44)
[2016-12-16] MEDS: NICOTINE 14 MG PATC TD SCH (14:55)
[2016-12-16] MEDS: PANTOPRAZOLE SODIUM 40 MG in NORMAL SALINE 100 ML IV SCH (17:37)
[2016-12-17] MEDS: DEXTROSE 5%-NORMAL SALINE 1,000 ML IV PRN ×2 (00:16→12:14)
[2016-12-17] MEDS: CIPROFLOXACIN LACTATE/D5W 400 MG/200 ML BAG IV SCH ×2 (04:51→15:54)
[2016-12-17] MEDS: GABAPENTIN 300 MG CAPSULE PO SCH ×3 (09:05→17:13)
--- NOTE | 2016-12-17 09:19 | PN ---
Subjective - Date and Time Seen Date: 12/17/16 Time: 09:12 Subjective Narrative: Patient afebrile. He did not take any pain meds per patient. Still with watery diarrhea. Objective - Review of Systems Generalized/Overall Review: Denies: Chills, Fever EENTM: Reports: No Symptoms Reported Respiratory: Denies: Cough, Shortness of Breath Cardiac: Denies: Chest Pain, Palpitations Abdominal: Denies: Nausea, Vomiting, Abdominal Pain - Vitals Vitals: Last Vital Signs Temp 36.9 C 12/17/16 07:53 Pulse 70 12/17/16 07:53 Resp 17 12/17/16 07:53 BP 140/88 12/17/16 07:53 Pulse Ox 95 12/17/16 07:53 - Exam Constitutional: Present: Alert, Oriented x3, Cooperative ENT Exam: Present: hearing grossly normal Neck: Present: supple Breasts: Present: Exam deferred Respiratory: Present: normal breath sounds, No rales, No wheezing Cardiovascular/Chest: Present: regular rate, rhythm, no JVD, no murmur Abdomen: Present: soft - to firm, nontender, nondistended, hypoactive Extremity: Present: no pedal edema, no calf tenderness Assessment/Plan - Problems/Diagnosis (1) Diverticulitis Problem: Acute Qualifiers: Diverticulitis site: large intestine Diverticulitis bleeding: without bleeding Diverticulitis complication: with perforation Qualified Code(s): K57.20 - Diverticulitis of large intestine with perforation and abscess without bleeding Narrative: on clear liquids. continue with IV antibiotics. (2) Localized peritonitis Problem: Acute Narrative: continur with IV antibiotics. surgery following up on paptient. (3) Diarrhea Problem: Acute Qualifiers: Diarrhea type: unspecified type Qualified Code(s): R19.7 - Diarrhea, unspecified Narrative: on IVF, IV antibiotics.
--- NOTE | 2016-12-17 10:39 | PN ---
Subjective - Date and Time Seen Date: 12/17/16 Time: 10:33 Subjective Narrative: FU contained perforattion of sigmoid diverticulitis He has been pain free for 24 hours Still having water bowel movements with some solid components. Denies fevers or chills. Objective Objective Narrative: Pt is afebrile. His abdomen is completely non-tender. - Review of Systems Generalized/Overall Review: Reports: No Symptoms Reported Abdominal: Reports: Diarrhea Misc: All systems neg except as marked - Vitals Vitals: Last Vital Signs Temp 36.9 C 12/17/16 10:01 Pulse 65 12/17/16 10:01 Resp 17 12/17/16 10:01 BP 136/89 12/17/16 10:01 Pulse Ox 97 12/17/16 10:01 - Exam Constitutional: Present: Alert, Oriented x3, Cooperative, No distress ENT Exam: Present: normal ENT inspection Neck: Present: normal inspection Respiratory: Present: no respiratory distress, no accessory muscle use Abdomen: Present: soft, nontender Extremity: Present: normal inspection Assessment/Plan Plan Narrative: Doing exceedingly well clinically. Recommend advancing diet to soft/all cooked as tolerated. His mother in [place], [place] has been placed on a transplant list. I can sanction his dismissal tomorrow and travel to [place]. Will need to convert to PO Abx on dismissal. Will need colonoscopy to r/o malignancy given family hx - Problems/Diagnosis (1) Diverticulitis of large intestine with perforation without bleeding Problem: Acute (2) Localized peritonitis Problem: Acute
[2016-12-17] MEDS: NICOTINE 14 MG PATC TD SCH (14:32)
[2016-12-17] MEDS: PANTOPRAZOLE SODIUM 40 MG in NORMAL SALINE 100 ML IV SCH (17:13)
[2016-12-18] MEDS: DEXTROSE 5%-NORMAL SALINE 1,000 ML IV PRN (00:35)
[2016-12-18] MEDS: CIPROFLOXACIN LACTATE/D5W 400 MG/200 ML BAG IV SCH (03:50)
[2016-12-18] MEDS: GABAPENTIN 300 MG CAPSULE PO SCH ×2 (08:44→12:05)
[2016-12-18 10:28] VITALS: BP 123/86
--- NOTE | 2016-12-18 11:15 | DS ---
(1) Diverticulitis Diagnosis(s): clinically improved Problem: Acute Qualifiers: Diverticulitis site: large intestine Diverticulitis bleeding: without bleeding Diverticulitis complication: with perforation Qualified Code(s): K57.20 - Diverticulitis of large intestine with perforation and abscess without bleeding (2) Localized peritonitis Diagnosis(s): contained Problem: Acute (3) Diarrhea Problem: Resolved Qualifiers: Diarrhea type: unspecified type Qualified Code(s): R19.7 - Diarrhea, unspecified Description of Stay: Fernandez Bowles, is a 46 year old male with a PMH of colitis, depression, anxiety, hematuria, and headaches who presented to the emergency room with abdominal pain. Patient stated that he was laying on the cough when his abdomen felt like "someone was stabbing it with a knife". Presented to [facility] ER for evaluation. CT in ER showed diverticulitis with contained perforation into the sigmoid mesentery without abscess. general surgery had asked the hospitalist service to medically manage the patient with conservative treatment for now as they follow along as telecom sales consultant. Patient has a history approximately 4 weeks ago with similar symptoms in which he describes being admitted for perforated diverticulitis, admitted for 4 days for IV antibiotics and then discharged home with oral antibiotics. Patient has known diverticular disease from prior colonoscopy. CBC showed elevated Wbc at 14,000 with left shift. patient denies any blood or mucous in his stool recently but does stated that his stools are "pure water". c/o chills. no chest pain. The patient stated that he has a history of GI issues in the past, including stomach ulcer and hiatal hernia. He was started on IV Cipro and Flagyl;. His WBC normalized. His abdominal pain improved siginificantly and resolved. His diet was progressed and as per surgery , patient may go home today. He will continue with his antibiotics orally for another 7 days. Follow up with PCP, Gastroenterology and with surgery. He knows to go to the ER if he develops again abdominal pain/ F/C/N/V. Procedures Performed: none Discharge Disposition: Home self care Disposition: Home self-care Condition: Good Discharge Activity: Activity as tolerated Discharge Diet: Other - per surgery- may stay soft diet/all cooked Referrals: Sonja Moulton MD [Primary Care Provider] - Additional Patient Instructions (free text): follow up with his PCP in 1 week, appointment with Dr. Moulton for 12-28-16 @ 10 :30 am. Prescriptions (Any new or edited meds): Acetaminophen [Pain Reliever] 500 mg PO QID PRN #30 tablet PRN Reason: Pain/Fever Ciprofloxacin HCl [Cipro] 500 mg PO BID #14 tab metroNIDAZOLE [Flagyl] 500 mg PO Q8H #21 tablet Complete Home Medications List: Complete Home Medication List: Aspirin/Acetaminophen/Caffeine [Excedrin Migraine Caplet] 1 each PO DAILY PRN Gabapentin 900 mg PO TID 12/15/16 Acetaminophen [Pain Reliever] 500 mg PO QID PRN #30 tablet 12/18/16 Ciprofloxacin HCl [Cipro] 500 mg PO BID #14 tab 12/18/16 metroNIDAZOLE [Flagyl] 500 mg PO Q8H #21 tablet 12/18/16
== END 2016-12-18 13:30 | disposition home or self-care (01) | DRG 392 ==
LOC: ER 08:38 → MS 12:16 → OBSVTOIN 12-16 08:40
PROVIDERS: ADMIT Nurse Practitioner Critical Care Medicine; ATTEND Internal Medicine
DX: K57.20 Diverticulitis of large intestine with perforation and abscess without bleeding (principal); R19.7 Diarrhea, unspecified; F32.9 Major depressive disorder, single episode, unspecified; D72.829 Elevated white blood cell count, unspecified
CPT/HCPCS: 36415; 74177; 80048; 80053; 81001; 82150; 83690; 85025; 87040; 87493; 96374; 96375; 99283; G0378

== ENCOUNTER 2016-12-22 09:11 | Inpatient (IN) | payer MEDICAID ==
--- NOTE | 2016-12-22 09:31 | ERNOTE ---
Abdominal HPI - General Chief Complaint: Abdominal Pain Time Seen by Provider: 12/22/16 09:31 Source: patient Exam Limitations: no limitations - Immun/Allergies/Home Medications Immunizatons: IMMUNIZATION HX Immunizations Up to Date Yes History of Influenza Vaccine Yes Hx Pneumococcal Vaccination No Allergies/Adverse Reactions: Allergies naproxen Adverse Reaction (Mild, Verified 12/22/16 09:26) "severe heartburn" Home Medications: HOME MEDICATIONS Aspirin/Acetaminophen/Caffeine [Excedrin Migraine Caplet] 1 each PO DAILY PRN [Last Taken Unknown] Gabapentin 900 mg PO TID 12/15/16 [Last Taken Unknown] Acetaminophen [Pain Reliever] 500 mg PO QID PRN #30 tablet 12/18/16 [Last Taken Unknown] Ciprofloxacin HCl [Cipro] 500 mg PO BID #14 tab 12/18/16 [Last Taken Unknown] metroNIDAZOLE [Flagyl] 500 mg PO Q8H #21 tablet 12/18/16 [Last Taken Unknown] - Patient's Past Medical History Patient History - Medical: Arthritis, Depression, Headache, Migraines, Other Patient History - Cardiac/Respiratory: No pertinent hx Patient History - Cancer: No Hx of Cancer Patient History - Surgical Procedures: Colonoscopy, EGD, Other Patient History - Other: None - Family History Mother Family History - Medical: Diabetes Type 2, Other Family History - Cardiac/Respiratory: No pertinent hx Family History - Cancer: Other Father Family History - Medical: No pertinent hx Family History - Cardiac/Respiratory: No pertinent hx Family History - Cancer: Colon - Social History Living Situations: home Abuse History: No History of abuse Psych History: No pertinent hx Smoking Status: Current every day smoker Have you smoked in the past 12 months: Yes Alcohol Use: none Drug Use: marijuana - Immunizations Immunizations Up to Date: Yes Hx Pneumococcal Vaccination: No History of Influenza Vaccine: Yes ED Progress - Results and Orders Patient's Lab Results:: I have reviewed the patient's lab results. - Vital Signs Patient's Vital Signs:: I have reviewed the patient's vital signs. Vital Signs: Vital Signs 12/22/16 09:21 Temperature 36.4 C L Pulse Rate 81 Respiratory 12 Rate Blood Pressure 150/107 O2 Sat by Pulse 100 Oximetry - CT/Ultrasound CT/Ultrasound Narrative: CT results reviewed - Progress/Reassessment Chief Complaint: Abdominal Pain Progress:: Unchanged Plan - Plan Plan: The initial hope for the patient was that he could go home on a week to 10 days of oral antibiotics and do a stage of bowel resection of the diverticulitis of the sigmoid colon. However he worsened over the last 24 hours to the point to where his pain was in extremis. I discussed the case with both Dr. Bocanegra and Dr. Caceres and he'll be admitted and will likely have surgery done over the next few days. Departure - Departure Clinical Impression: Diverticulitis of large intestine with perforation without bleeding Disposition: [facility] Condition: Fair Referrals: Michela Bocanegra MD [Staff Physician] -
[2016-12-22] MEDS ORDERED: NORMAL SALINE 1,000 ML in NORMAL SALINE 1,000 ML IV ONE (09:38)
[2016-12-22 09:39] LABS: Hematocrit 44.4 % (42.0-52.0); Hemoglobin 14.8 gm/dL (13.5-18.0); Mean Cell Volume 89.5 fl (78-100); Mean Corpuscular Hemoglobin 29.8 pg (27-31); Mean Corpuscular Hgb Conc 33.3 g/dl (32-36); Mean Platelet Volume 8.8 fl (6.0-9.5); Neutrophil # 5.9 K/mm3 (1.3-6.0); Platelet Count 352 K/mm3 (150-450); Red Blood Count 4.96 M/mm3 (4.7-6.0); Red Cell Distribution Width 12.7 % (11.5-14.0); White Blood Count 8.8 K/mm3 (4.0-10.5)
[2016-12-22] MEDS ORDERED: NORMAL SALINE 1,000 ML IV ONE (09:39)
[2016-12-22] MEDS ORDERED: fentaNYL CITRATE/PF 50 MCG/ML AMPUL IV ONE (09:40)
[2016-12-22] MEDS ORDERED: DIATRIZOATE MEGLU/DIATRIZO SOD 30 ML BTL PO ONE (09:47)
[2016-12-22] MEDS ORDERED: fentaNYL CITRATE/PF 50 MCG/ML AMPUL ONE (09:51)
[2016-12-22] MEDS ORDERED: DIATRIZOATE MEGLU/DIATRIZO SOD 30 ML BTL ONE (09:51)
[2016-12-22 09:53] LABS: Albumin * 3.7 gm/dl (3.4-5.0); Anion Gap 14.2 mmol/L (6.8-13.8); BUN/Creatinine Ratio 10.2 (9.0-21.6); Bilirubin, Total 0.3 mg/dL (0.0-1.1); Ca. Corrected For Albumin 8.7 mg/dL (8.4-10.2); Calcium * 8.8 mg/dL (7.9-10.9); Carbon Dioxide 27.9 mmol/L (24-32.6); Potassium 4.1 mmol/L (3.4-4.6); Total Protein 7.7 gm/dL (6.2-8.2)
[2016-12-22] MEDS ORDERED: MORPHINE SULFATE 4 MG/ML SYRG IV ONE ×4 (10:46→14:50)
[2016-12-22] MEDS ORDERED: MORPHINE SULFATE 4 MG/ML SYRG ONE ×3 (10:47→14:51)
[2016-12-22 10:59] LABS: Urine Bilirubin Negative (NEGATIVE); Urine Blood 25 /ul (NEGATIVE); Urine Ketone Negative (NEGATIVE); Urine Nitrite Negative (NEGATIVE); Urine Protein Negative (NEGATIVE); Urine Specific Gravity >=1.030 SP.GR. (1.005-1.030); Urine Urobilinogen Normal (NORMAL)
[2016-12-22 11:20] LABS: Urine Appearance Clear; Urine Bacteria None Seen; Urine Color Yellow; Urine RBC TRACE /hpf (0-5); Urine WBC TRACE /hpf (0-5)
[2016-12-22] MEDS ORDERED: ONDANSETRON HCL/PF 2 MG/ML VIAL IV ONE ×2 (14:50)
[2016-12-22] MEDS ORDERED: ONDANSETRON HCL/PF 2 MG/ML VIAL ONE (14:51)
[2016-12-22] MEDS ORDERED: PIPERACILLIN SODIUM/TAZOBACTAM 3.375 GM in DEXTROSE 5 % IN WATER 100 ML IV SCH ×2 (17:00)
[2016-12-22] MEDS ORDERED: ACETAMINOPHEN 325 MG TABLET PO PRN (17:06)
[2016-12-22] MEDS ORDERED: ONDANSETRON HCL/PF 2 MG/ML VIAL IV PRN (17:10)
[2016-12-22] MEDS: HYDROmorphone HCL 1 MG/ML DISP.SYRIN IV PRN ×3 (17:27→23:50)
[2016-12-22] MEDS: ENOXAPARIN SODIUM 40 MG/0.4 ML SYRG SC SCH (17:28)
[2016-12-22] MEDS ORDERED: PANTOPRAZOLE SODIUM 40 MG TABLET.EC PO SCH (20:30)
[2016-12-22] MEDS ORDERED: PANTOPRAZOLE SODIUM 20 MG TABLET.DR ONE (20:32)
--- NOTE | 2016-12-22 22:26 | HP ---
Chief Complaint - Chief Complaint Date of Service: 12/22/16 Time of Service: 22:15 Chief Complaint: Recurrent Abdominal pain, nausea and vomiting History of Present Illness: 46 years old male adm to the hospital with reports of recurrent abdominal pain, nausea and vomiting. pt stated he was adm with diverticulitis perforation - 12/18/16. While inpatient he was treated with IV antbx Cipro and Flagyl x4 days. He was discharge home with oral antbx x7 days. On Wednesday he began having abdominal pain that got progressively worst today so he came to the ER. Patient report associated s/s nausea and vomiting. He denies diarrhea, flatus, fever or chills. PMH significant for GERD, perforated diverticulitis, smoker and depression. Plan of care discussed with pt, he verbalized understanding and agree. - Patient's Past Medical History Patient History - Medical: Arthritis, Depression, Headache, Migraines, Osteoarthritis, Other - diverticulitis Patient History - Cardiac/Respiratory: No pertinent hx Patient History - Cancer: No Hx of Cancer Patient History - Surgical Procedures: Colonoscopy, EGD, Other - Left knee arthroscopy x3 Patient History - Other: None - Family History Mother Family History - Medical: Diabetes Type 2, Other Family History - Cardiac/Respiratory: No pertinent hx Family History - Cancer: Other Father Family History - Medical: , No pertinent hx Family History - Cardiac/Respiratory: No pertinent hx Family History - Cancer: Colon - Social History Living Situations: spouse Abuse History: No History of abuse Psych History: No pertinent hx Smoking Status: Current every day smoker Have you smoked in the past 12 months: Yes - 1 pk daily Alcohol Use: none Drug Use: marijuana - Immunizations Immunizations Up to Date: Yes Hx Pneumococcal Vaccination: No History of Influenza Vaccine: Yes Review Of Systems (GEN) - Review of Systems Generalized/Overall Review: Present: No Symptoms Reported EENTM: Present: No Symptoms Reported Respiratory: Present: No Symptoms Reported Cardiac: Present: No Symptoms Reported Abdominal: Present: Abdominal Pain Genitourinary: Present: No Symptoms Reported Musculoskeletal: Present: No Symptoms Reported Neurological: Present: No Symptoms Reported Skin: Present: No Symptoms Reported Endocrine: Present: No Symptoms Reported Immunizations: IMMUNIZATION HX Immunizations Up to Date Yes History of Influenza Vaccine Yes Hx Pneumococcal Vaccination No Allergies/Adverse Reactions: Allergies Allergy/AdvReac Type Severity Reaction Status Date / Time naproxen AdvReac Mild "severe Verified 12/22/16 09:26 heartburn" Home Medications: HOME MEDICATIONS Aspirin/Acetaminophen/Caffeine [Excedrin Migraine Caplet] 1 each PO DAILY PRN [Last Taken Unknown] Gabapentin 900 mg PO TID 12/15/16 [Last Taken Unknown] Acetaminophen [Pain Reliever] 500 mg PO QID PRN #30 tablet 12/18/16 [Last Taken Unknown] Ciprofloxacin HCl [Cipro] 500 mg PO BID #14 tab 12/18/16 [Last Taken Unknown] metroNIDAZOLE [Flagyl] 500 mg PO Q8H #21 tablet 12/18/16 [Last Taken Unknown] Exam - Exam Vital Signs: Vital Signs - Last Taken Temp 38.0 C H 12/22/16 18:45 Pulse 82 12/22/16 18:45 Resp 20 12/22/16 18:45 BP 113/82 12/22/16 18:45 Pulse Ox 96 12/22/16 18:45 Constitutional: Present: Alert, Oriented x3, Cooperative, Well developed, Well nourished, No distress ENT Exam: Present: moist mucous membranes Eye Exam: bilateral eye: PERRL Neck: Present: full range of motion Back Exam: Present: normal inspection Breasts: Present: Exam deferred Respiratory: Present: chest non-tender, normal breath sounds, no respiratory distress, no accessory muscle use, decreased breath sounds Cardiovascular/Chest: Present: normal peripheral pulses Peripheral Pulses: dorsalis-pedis (R): 2+, dorsalis-pedis (L): 2+ Abdomen: Present: Normal bowel sounds, soft, nontender, nondistended, no rebound tenderness, no hepatospenomegaly, no masses /Rectal: Present: Exam deferred Extremity: Present: normal range of motion, non-tender, normal inspection, no pedal edema, no calf tenderness Skin Exam: Present: normal color, warm/dry Neurologic: Present: oriented x 3 Appearance: Present: appropriate appearance Diagnostic Studies: Abnormal Lab Results 12/22/16 12/22/16 Range/Units 17:15 17:15 ESR 19 H (0-10) mm/hr C-Reactive Prot, Quant 1.3 H (0.0-0.9) mg/dL Laboratory Results WBC 8.8 K/mm3 (4.0-10.5) 12/22/16 09:30 RBC 4.96 M/mm3 (4.7-6.0) 12/22/16 09:30 Hgb 14.8 gm/dL (13.5-18.0) 12/22/16 09:30 Hct 44.4 % (42.0-52.0) 12/22/16 09:30 MCV 89.5 fl (78-100) 12/22/16 09:30 MCH 29.8 pg (27-31) 12/22/16 09:30 MCHC 33.3 g/dl (32-36) 12/22/16 09:30 RDW 12.7 % (11.5-14.0) 12/22/16 09:30 Plt Count 352 K/mm3 (150-450) 12/22/16 09:30 MPV 8.8 fl (6.0-9.5) 12/22/16 09:30 Immature Gran % (Auto) 0.90 % (0.001-0.429) H 12/22/16 09:30 Immature Gran # (Auto) 0.08 K/mm3 (0.000-0.0310) H 12/22/16 09:30 Neutrophils % 67.0 % (42-75.0) 12/22/16 09:30 Lymphocytes % 21.7 % (20-51) 12/22/16 09:30 Monocytes % 6.2 % (0.0-9) 12/22/16 09:30 Eosinophils % 3.4 % (0.0-3.0) H 12/22/16 09:30 Basophils % 0.8 % (0.0-1.0) 12/22/16 09:30 Nucleated RBC % 0.0 k/mm3 (0-1) 12/22/16 09:30 Neutrophils # 5.9 K/mm3 (1.3-6.0) 12/22/16 09:30 Lymphocytes # 1.9 k/mm3 (1.5-3.5) 12/22/16 09:30 Monocytes # 0.6 k/mm3 (0.0-1.0) 12/22/16 09:30 Eosinophils # 0.3 k/mm3 (0.0-0.7) 12/22/16 09:30 Absolute Basophils 0.1 k/mm3 (0.0-0.1) 12/22/16 09:30 ESR 19 mm/hr (0-10) H 12/22/16 17:15 Sodium 142 mmol/L (132-142) 12/22/16 09:30 Plasma Sodium 142 mmol/L (130-142) 12/22/16 09:30 Potassium 4.1 mmol/L (3.4-4.6) 12/22/16 09:30 Chloride 104 mmol/L (97-106) 12/22/16 09:30 Carbon Dioxide 27.9 mmol/L (24-32.6) 12/22/16 09:30 Anion Gap 14.2 mmol/L (6.8-13.8) H 12/22/16 09:30 BUN 11 mg/dL (6-23) 12/22/16 09:30 Creatinine 1.08 mg/dL (0.4-1.4) 12/22/16 09:30 Est GFR (Non-Af Amer) 78 mL/min (60-130) 12/22/16 09:30 BUN/Creatinine Ratio 10.2 (9.0-21.6) 12/22/16 09:30 Random Glucose 106 mg/dL (70-110) 12/22/16 09:30 Calcium 8.8 mg/dL (7.9-10.9) 12/22/16 09:30 Calcium Adj for Albumin 8.7 mg/dL (8.4-10.2) 12/22/16 09:30 Total Bilirubin 0.3 mg/dL (0.0-1.1) 12/22/16 09:30 AST 14 U/L (0-48) 12/22/16 09:30 ALT 27 U/L (19-67) 12/22/16 09:30 Alkaline Phosphatase 57 U/L (50-170) 12/22/16 09:30 C-Reactive Prot, Quant 1.3 mg/dL (0.0-0.9) H 12/22/16 17:15 Total Protein 7.7 gm/dL (6.2-8.2) 12/22/16 09:30 Albumin 3.7 gm/dl (3.4-5.0) 12/22/16 09:30 Amylase 43 U/L (25-115) 04/11/17 09:30 Lipase 115 U/L (73-393) 12/22/16 09:30 Urine Color Yellow 12/22/16 10:55 Urine Appearance Clear 12/22/16 10:55 Urine pH 6.0 pH (5.0-7.0) 12/22/16 10:55 Ur Specific [place] >=1.030 SP.GR. (1.005-1.030) 12/22/16 10:55 Urine Protein Negative mg/dL (NEGATIVE) 12/22/16 10:55 Urine Glucose (UA) Negative mg/dL (NEGATIVE) 12/22/16 10:55 Urine Ketones Negative mg/dL (NEGATIVE) 12/22/16 10:55 Urine Blood 25 /ul (NEGATIVE) H 12/22/16 10:55 Urine Nitrate Negative (NEGATIVE) 12/22/16 10:55 Urine Bilirubin Negative mg/dl (NEGATIVE) 12/22/16 10:55 Urine Urobilinogen Normal EU/dl (NORMAL) 12/22/16 10:55 Ur Leukocyte Esterase Negative /ul (NEGATIVE) 12/22/16 10:55 Urine RBC Trace /hpf (0-5) 12/22/16 10:55 Urine WBC Trace /hpf (0-5) 12/22/16 10:55 Ur Epithelial Cells None seen /hpf (0-5) 12/22/16 10:55 Urine Bacteria None seen (NONE) 12/22/16 10:55 Urine Culture Comments No culture indicated 12/22/16 10:55 12/15/16 CT Abdomen: Diverticulitis with contaminated perforation into sigmoid mesentry w/o abscess 12/22/16 CT Abdomen: Interval worsening of inflammatory change at the level of the sigmoid colon, findings sequela of sigmoid diverticulitis with micro- perforation. No abscess at this time. Follow up colonoscopy to r/o malignancy given family history. Assessment/Plan - Narrative Narrative: Diverticulitis with micro-perforation :seen on CT abdomen 12/15/16 CT Abdomen: Diverticulitis with contaminated perforation into sigmoid mesentry w/o abscess 12/22/16 CT Abdomen: Interval worsening of inflammatory change at the level of the sigmoid colon, findings sequela of sigmoid diverticulitis with micro- perforation. No abscess at this time. Follow up colonoscopy to r/o malignancy given family history. 12/15/16 He was adm and treated conservatively with Cipro and Flagyl Iv antbx x 4 days and DC home with oral x 7 days. On this adm WBC 8.8 WBL, Temp 38.0 Zosyn was initiated and he will need x10 days, he had failed on Cipro and Flagyl CLD and gentle hydration Dr. Bocanegra following Abdominal pain- resolved Plan same as #1 Smoker Smoking cessation Education smoker and nicotine patch Code status: Full VTE ppx: Lovenox and ambulate GI ppx: protonix Anticipate discharge home 2 or more days Time 38 minutes - Assessment/Plan (1) Diverticulitis of large intestine with perforation without bleeding Problem: Acute
[2016-12-23] MEDS: PIPERACILLIN SODIUM/TAZOBACTAM 3.375 GM in DEXTROSE 5 % IN WATER 100 ML IV SCH ×6 (01:27→16:59)
[2016-12-23] MEDS: HYDROmorphone HCL 1 MG/ML DISP.SYRIN IV PRN ×4 (01:54→20:49)
[2016-12-23] MEDS: HYDROmorphone HCL 2 MG/ML VIAL IV PRN (04:46)
[2016-12-23 05:45] LABS: Hematocrit 43.2 % (42.0-52.0); Hemoglobin 14.4 gm/dL (13.5-18.0); Mean Cell Volume 88.3 fl (78-100); Mean Corpuscular Hemoglobin 29.4 pg (27-31); Mean Corpuscular Hgb Conc 33.3 g/dl (32-36); Mean Platelet Volume 8.9 fl (6.0-9.5); Neutrophil # 10.8 K/mm3 (1.3-6.0); Neutrophil % 70.9 % (42-75.0); Platelet Count 350 K/mm3 (150-450); Red Blood Count 4.89 M/mm3 (4.7-6.0); Red Cell Distribution Width 12.7 % (11.5-14.0); White Blood Count 15.2 K/mm3 (4.0-10.5)
[2016-12-23 06:07] LABS: Albumin * 3.4 gm/dl (3.4-5.0); Anion Gap 12.9 mmol/L (6.8-13.8); BUN/Creatinine Ratio 8.3 (9.0-21.6); Bilirubin, Total 0.9 mg/dL (0.0-1.1); CRP 9.4 mg/dL (0.0-0.9); Ca. Corrected For Albumin 8.5 mg/dL (8.4-10.2); Calcium * 8.3 mg/dL (7.9-10.9); Carbon Dioxide 27.1 mmol/L (24-32.6); Total Protein 6.7 gm/dL (6.2-8.2)
[2016-12-23] MEDS: PANTOPRAZOLE SODIUM 40 MG TABLET.EC PO SCH (07:01)
[2016-12-23] MEDS: GABAPENTIN 300 MG CAPSULE PO SCH ×3 (08:19→16:58)
--- NOTE | 2016-12-23 16:19 | PN ---
Subjective - Date and Time Seen Date: 12/23/16 Time: 09:00 Subjective Narrative: Patient seen and examined at bedside this AM. No acute issues overnight. Pain well controlled on current pain medication. Patient denies any new issues or concerns. Objective - Review of Systems Generalized/Overall Review: Reports: Weakness, Fatigue EENTM: Reports: No Symptoms Reported Respiratory: Reports: No Symptoms Reported Cardiac: Reports: No Symptoms Reported Abdominal: Reports: Abdominal Pain Genitourinary Symptoms: Reports: No Symptoms Reported Musculoskeletal Complaints: Reports: No Symptoms Reported Neurological: Reports: No Symptoms Reported Skin: Reports: No Symptoms Reported Endocrine: Reports: No Symptoms Reported Misc: All systems neg except as marked - Vitals Vitals: Last Vital Signs Temp 37.3 C 12/23/16 14:00 Pulse 76 12/23/16 14:00 Resp 18 12/23/16 14:00 BP 102/74 12/23/16 14:00 Pulse Ox 94 12/23/16 14:00 - Abnormal Lab Findings Abnormal Lab Findings: Abnormal Lab Results 12/22/16 12/22/16 12/23/16 Range/Units 17:15 17:15 05:42 WBC 15.2 H D (4.0-10.5) K/mm3 Immature Gran % (Auto) 0.80 H (0.001-0.429) % Immature Gran # (Auto) 0.12 H (0.000-0.0310) K/mm3 Lymphocytes % 16.8 L (20-51) % Monocytes % 9.1 H (0.0-9) % Neutrophils # 10.8 H (1.3-6.0) K/mm3 Monocytes # 1.4 H (0.0-1.0) k/mm3 ESR 19 H (0-10) mm/hr BUN/Creatinine Ratio (9.0-21.6) C-Reactive Prot, Quant 1.3 H (0.0-0.9) mg/dL 12/23/16 12/23/16 Range/Units 05:42 05:42 WBC (4.0-10.5) K/mm3 Immature Gran % (Auto) (0.001-0.429) % Immature Gran # (Auto) (0.000-0.0310) K/mm3 Lymphocytes % (20-51) % Monocytes % (0.0-9) % Neutrophils # (1.3-6.0) K/mm3 Monocytes # (0.0-1.0) k/mm3 ESR 25 H (0-10) mm/hr BUN/Creatinine Ratio 8.3 L (9.0-21.6) C-Reactive Prot, Quant 9.4 H (0.0-0.9) mg/dL - Exam Constitutional: Present: Alert, Oriented x3, Cooperative, Well developed, Well nourished, No distress ENT Exam: Present: hearing grossly normal, moist mucous membranes Respiratory: Present: lungs clear, normal breath sounds, no respiratory distress , no accessory muscle use Cardiovascular/Chest: Present: regular rate, rhythm, no edema, no murmur Abdomen: Present: soft, tender - Diffuse TTP, especially periumbilical area, guarding - voluntary guarding, rebound tenderness Extremity: Present: normal range of motion, non-tender, normal inspection, no pedal edema, no calf tenderness Skin Exam: Present: normal color, warm/dry, no cyanosis Neurologic: Present: no motor/sensory deficits, alert, normal mood/affect, oriented x 3 Appearance: Present: appropriate appearance, appropriate insight, neat, no memory impairment Eye contact: Present: cooperative, good eye contact, normal speech Thoughts: Present: normal thought pattern, no apparent hallucination Assessment/Plan Plan Narrative: IMPRESSION & PLAN: Diverticulitis with micro-perforation -12/15/16 CT Abdomen: Diverticulitis with contaminated perforation into sigmoid mesentry w/o abscess -12/22/16 CT Abdomen: Interval worsening of inflammatory change at the level of the sigmoid colon, findings sequela of sigmoid diverticulitis with micro- perforation. No abscess at this time. Follow up colonoscopy to r/o malignancy given family history. -12/15/16 He was admitted and treated conservatively with Cipro and Flagyl IV antbx x 4 days and DC home with oral x 7 days. -On this adm WBC 8.8 WBL, Temp 38.0 -Continue Zosyn with plan for patient to remain on IV Zosyn for 7-10 days -Continue CLD -Dr. Bocanegra following Tobacco Abuse -Counseled on cessation -Nicotine patch Code status: Full Code VTE ppx: Lovenox and ambulate GI ppx: Protonix PO - Problems/Diagnosis (1) Diverticulitis of large intestine with perforation without bleeding Problem: Acute
[2016-12-23] MEDS: ENOXAPARIN SODIUM 40 MG/0.4 ML SYRG SC SCH (16:59)
[2016-12-24] MEDS: PIPERACILLIN SODIUM/TAZOBACTAM 3.375 GM in DEXTROSE 5 % IN WATER 100 ML IV SCH ×6 (00:44→17:47)
[2016-12-24] MEDS: HYDROmorphone HCL 1 MG/ML DISP.SYRIN IV PRN ×4 (01:24→14:41)
[2016-12-24] MEDS: HYDROmorphone HCL 2 MG/ML VIAL IV PRN ×4 (03:35→21:53)
[2016-12-24 05:42] LABS: Hematocrit 41.2 % (42.0-52.0); Hemoglobin 13.8 gm/dL (13.5-18.0); Mean Cell Volume 88.6 fl (78-100); Mean Corpuscular Hemoglobin 29.7 pg (27-31); Mean Corpuscular Hgb Conc 33.5 g/dl (32-36); Mean Platelet Volume 8.8 fl (6.0-9.5); Neutrophil # 5.7 K/mm3 (1.3-6.0); Neutrophil % 61.8 % (42-75.0); Platelet Count 294 K/mm3 (150-450); Red Blood Count 4.65 M/mm3 (4.7-6.0); Red Cell Distribution Width 12.3 % (11.5-14.0); White Blood Count 9.3 K/mm3 (4.0-10.5)
[2016-12-24 06:01] LABS: Anion Gap 11.6 mmol/L (6.8-13.8); BUN/Creatinine Ratio 8.5 (9.0-21.6); Calcium * 8.4 mg/dL (7.9-10.9); Carbon Dioxide 27.9 mmol/L (24-32.6); Estimated Creat Clear 81.5; Potassium 3.5 mmol/L (3.4-4.6)
[2016-12-24 06:02] LABS: CRP 17.9 mg/dL (0.0-0.9)
[2016-12-24] MEDS: PANTOPRAZOLE SODIUM 40 MG TABLET.EC PO SCH (06:51)
[2016-12-24] MEDS: GABAPENTIN 300 MG CAPSULE PO SCH ×3 (08:35→17:47)
[2016-12-24] MEDS: NICOTINE 14 MG PATC TD SCH (16:40)
--- NOTE | 2016-12-24 16:55 | PN ---
Subjective - Date and Time Seen Date: 12/24/16 Time: 10:24 Subjective Narrative: Patient seen and examined at bedside this AM. No acute issues overnight. Pain well controlled on current pain medication. Patient denies any new issues or concerns. Objective - Review of Systems Generalized/Overall Review: Reports: Weakness, Fatigue EENTM: Reports: No Symptoms Reported Respiratory: Reports: No Symptoms Reported Cardiac: Reports: No Symptoms Reported Abdominal: Reports: Abdominal Pain Genitourinary Symptoms: Reports: No Symptoms Reported Musculoskeletal Complaints: Reports: No Symptoms Reported Neurological: Reports: No Symptoms Reported Skin: Reports: No Symptoms Reported Endocrine: Reports: No Symptoms Reported Misc: All systems neg except as marked - Vitals Vitals: Last Vital Signs Temp 36.9 C 12/24/16 14:33 Pulse 67 12/24/16 14:33 Resp 18 12/24/16 14:33 BP 104/73 12/24/16 14:33 Pulse Ox 96 12/24/16 14:33 - Abnormal Lab Findings Abnormal Lab Findings: Abnormal Lab Results 12/24/16 12/24/16 12/24/16 Range/Units 05:39 05:39 05:39 RBC 4.65 L (4.7-6.0) M/mm3 Hct 41.2 L (42.0-52.0) % Immature Gran % (Auto) 0.80 H (0.001-0.429) % Immature Gran # (Auto) 0.07 H (0.000-0.0310) K/mm3 Monocytes % 9.5 H (0.0-9) % Eosinophils % 3.5 H (0.0-3.0) % ESR 51 H (0-10) mm/hr BUN/Creatinine Ratio 8.5 L (9.0-21.6) C-Reactive Prot, Quant 17.9 H (0.0-0.9) mg/dL - Exam Constitutional: Present: Alert, Oriented x3, Cooperative, Well developed, Well nourished, No distress ENT Exam: Present: hearing grossly normal, moist mucous membranes Respiratory: Present: lungs clear, normal breath sounds, no respiratory distress , no accessory muscle use Cardiovascular/Chest: Present: regular rate, rhythm, no edema, no JVD, no murmur Abdomen: Present: soft, tender - Diffuse tenderness with deep palpation, especially periumbilical area, rebound tenderness Extremity: Present: normal range of motion, non-tender, normal inspection, no pedal edema, no calf tenderness Skin Exam: Present: normal color, warm/dry, no cyanosis Neurologic: Present: no motor/sensory deficits, alert, normal mood/affect, oriented x 3 Appearance: Present: appropriate appearance, appropriate insight, neat, no memory impairment Eye contact: Present: cooperative, good eye contact, normal speech Thoughts: Present: normal thought pattern, no apparent hallucination Assessment/Plan Plan Narrative: IMPRESSION & PLAN: Diverticulitis with micro-perforation -12/15/16 CT Abdomen: Diverticulitis with contaminated perforation into sigmoid mesentry w/o abscess -12/22/16 CT Abdomen: Interval worsening of inflammatory change at the level of the sigmoid colon, findings sequela of sigmoid diverticulitis with micro- perforation. No abscess at this time. Follow up colonoscopy to r/o malignancy given family history. -12/15/16 He was admitted and treated conservatively with Cipro and Flagyl IV antbx x 4 days and DC home with oral x 7 days. -Patient failed treatment with cipro and flagyl and thus was admitted and started on IV Zosyn. Continue Zosyn with plan for patient to remain on IV Zosyn for 7-10 days. -General Surgeon, Dr. Bocanegra, following. Appreciate his input and recommendations. Hopefully we will be able to avoid surgery using IV zosyn; otherwise, patient will have to undergo a bowel resection with ostomy formation. -Continue CLD Tobacco Abuse -Counseled on cessation -Nicotine patch Code status: Full Code VTE ppx: Lovenox and ambulate GI ppx: Protonix PO - Problems/Diagnosis (1) Diverticulitis of large intestine with perforation without bleeding Problem: Acute
[2016-12-24] MEDS: ENOXAPARIN SODIUM 40 MG/0.4 ML SYRG SC SCH (17:47)
[2016-12-25] MEDS: PIPERACILLIN SODIUM/TAZOBACTAM 3.375 GM in DEXTROSE 5 % IN WATER 100 ML IV SCH ×6 (00:54→16:36)
[2016-12-25] MEDS: HYDROmorphone HCL 2 MG/ML VIAL IV PRN ×3 (01:18→16:33)
[2016-12-25] MEDS: PANTOPRAZOLE SODIUM 40 MG TABLET.EC PO SCH (06:33)
[2016-12-25] MEDS: GABAPENTIN 300 MG CAPSULE PO SCH ×3 (08:37→16:36)
--- NOTE | 2016-12-25 10:29 | PN ---
Subjective - Date and Time Seen Date: 12/25/16 Time: 10:28 Subjective Narrative: Patient seen and examined at bedside this AM. No acute issues overnight. Pain well controlled on current pain medication. Patient denies any new issues or concerns. Objective - Review of Systems Generalized/Overall Review: Reports: Weakness, Fatigue EENTM: Reports: No Symptoms Reported Respiratory: Reports: No Symptoms Reported Cardiac: Reports: No Symptoms Reported Abdominal: Reports: Abdominal Pain - well controlled on current pain medications Genitourinary Symptoms: Reports: No Symptoms Reported Musculoskeletal Complaints: Reports: No Symptoms Reported Neurological: Reports: No Symptoms Reported Skin: Reports: No Symptoms Reported Endocrine: Reports: No Symptoms Reported Misc: All systems neg except as marked - Vitals Vitals: Last Vital Signs Temp 37.0 C 12/25/16 07:45 Pulse 70 12/25/16 07:45 Resp 18 12/25/16 07:45 BP 128/81 12/25/16 07:45 Pulse Ox 95 12/25/16 07:45 - Exam Constitutional: Present: Alert, Oriented x3, Cooperative, Well developed, Well nourished, No distress ENT Exam: Present: hearing grossly normal, moist mucous membranes Respiratory: Present: lungs clear, normal breath sounds, no respiratory distress , no accessory muscle use Cardiovascular/Chest: Present: regular rate, rhythm, no edema, no JVD, no murmur Abdomen: Present: soft, tender - Diffuse tenderness with deep palpation, especially periumbilical area, rebound tenderness Extremity: Present: normal range of motion, non-tender, normal inspection, no pedal edema, no calf tenderness Skin Exam: Present: warm/dry, no cyanosis Neurologic: Present: no motor/sensory deficits, alert, normal mood/affect, oriented x 3 Appearance: Present: appropriate appearance, appropriate insight, neat, no memory impairment Eye contact: Present: cooperative, good eye contact, normal speech Thoughts: Present: normal thought pattern, no apparent hallucination Assessment/Plan Plan Narrative: IMPRESSION & PLAN: Diverticulitis with micro-perforation -12/15/16 CT Abdomen: Diverticulitis with contaminated perforation into sigmoid mesentry w/o abscess -12/22/16 CT Abdomen: Interval worsening of inflammatory change at the level of the sigmoid colon, findings sequela of sigmoid diverticulitis with micro- perforation. No abscess at this time. Follow up colonoscopy to r/o malignancy given family history. -12/15/16 He was admitted and treated conservatively with Cipro and Flagyl IV antbx x 4 days and DC home with oral x 7 days. -Patient failed treatment with cipro and flagyl and thus was admitted and started on IV Zosyn. Continue Zosyn with plan for patient to remain on IV Zosyn for 7-10 days. -General Surgeon, Dr. Bocanegra, following. Appreciate his input and recommendations. Hopefully we will be able to avoid surgery using IV zosyn; otherwise, patient will have to undergo a bowel resection with ostomy formation. -Continue CLD Tobacco Abuse -Counseled on cessation -Nicotine patch Code status: Full Code VTE ppx: Lovenox and ambulate GI ppx: Protonix PO - Problems/Diagnosis (1) Diverticulitis of large intestine with perforation without bleeding Problem: Acute
[2016-12-25] MEDS: ENOXAPARIN SODIUM 40 MG/0.4 ML SYRG SC SCH (16:36)
[2016-12-25] MEDS: NICOTINE 14 MG PATC TD SCH (16:36)
[2016-12-26] MEDS: PIPERACILLIN SODIUM/TAZOBACTAM 3.375 GM in DEXTROSE 5 % IN WATER 100 ML IV SCH ×6 (02:12→16:43)
[2016-12-26 05:06] LABS: Hematocrit 41.1 % (42.0-52.0); Hemoglobin 14.1 gm/dL (13.5-18.0); Mean Cell Volume 86.3 fl (78-100); Mean Corpuscular Hemoglobin 29.6 pg (27-31); Mean Corpuscular Hgb Conc 34.3 g/dl (32-36); Neutrophil # 3.1 K/mm3 (1.3-6.0); Neutrophil % 47.4 % (42-75.0); Platelet Count 332 K/mm3 (150-450); Red Blood Count 4.76 M/mm3 (4.7-6.0); Red Cell Distribution Width 11.8 % (11.5-14.0); White Blood Count 6.4 K/mm3 (4.0-10.5)
[2016-12-26 05:32] LABS: Anion Gap 11.5 mmol/L (6.8-13.8); BUN/Creatinine Ratio 6.3 (9.0-21.6); CRP 3.8 mg/dL (0.0-0.9); Carbon Dioxide 28.1 mmol/L (24-32.6); Estimated Creat Clear 99.3; Potassium 3.6 mmol/L (3.4-4.6)
[2016-12-26] MEDS: PANTOPRAZOLE SODIUM 40 MG TABLET.EC PO SCH (06:31)
[2016-12-26] MEDS: GABAPENTIN 300 MG CAPSULE PO SCH ×3 (09:00→16:43)
--- NOTE | 2016-12-26 12:20 | PN ---
Subjective - Date and Time Seen Date: 12/26/16 Time: 12:19 Subjective Narrative: Patient seen and examined at bedside this AM. No acute issues overnight. Pain well controlled on current pain medication. Patient denies any new issues or concerns. Objective - Review of Systems Generalized/Overall Review: Reports: No Symptoms Reported EENTM: Reports: No Symptoms Reported Respiratory: Reports: No Symptoms Reported Cardiac: Reports: No Symptoms Reported Abdominal: Reports: No Symptoms Reported Genitourinary Symptoms: Reports: No Symptoms Reported Musculoskeletal Complaints: Reports: No Symptoms Reported Neurological: Reports: No Symptoms Reported Skin: Reports: No Symptoms Reported Endocrine: Reports: No Symptoms Reported Misc: All systems neg except as marked - Vitals Vitals: Last Vital Signs Temp 36.8 C 12/26/16 09:53 Pulse 80 12/26/16 09:53 Resp 20 12/26/16 09:53 BP 123/80 12/26/16 09:53 Pulse Ox 97 12/26/16 09:53 - Abnormal Lab Findings Abnormal Lab Findings: Abnormal Lab Results 12/26/16 12/26/16 12/26/16 Range/Units 04:58 04:58 04:58 Hct 41.1 L (42.0-52.0) % Immature Gran % (Auto) 0.50 H (0.001-0.429) % Eosinophils % 5.4 H (0.0-3.0) % ESR 53 H (0-10) mm/hr BUN/Creatinine Ratio 6.3 L (9.0-21.6) C-Reactive Prot, Quant 3.8 H (0.0-0.9) mg/dL - Exam Constitutional: Present: Alert, Oriented x3, Cooperative, Well developed, Well nourished, No distress ENT Exam: Present: hearing grossly normal, moist mucous membranes Respiratory: Present: lungs clear, normal breath sounds, no respiratory distress , no accessory muscle use Cardiovascular/Chest: Present: regular rate, rhythm, no edema Abdomen: Present: soft, tender - Diffuse tenderness with deep palpation, especially periumbilical area. TTP markedly improved since admisson, rebound tenderness - Improving Extremity: Present: normal range of motion, non-tender, normal inspection, no pedal edema Skin Exam: Present: normal color, warm/dry, no cyanosis Neurologic: Present: no motor/sensory deficits, alert, normal mood/affect, oriented x 3 Appearance: Present: appropriate appearance, appropriate insight, neat, no memory impairment Eye contact: Present: cooperative, good eye contact, normal speech Thoughts: Present: normal thought pattern, no apparent hallucination Assessment/Plan Plan Narrative: IMPRESSION & PLAN: Diverticulitis with micro-perforation -12/15/16 CT Abdomen: Diverticulitis with contaminated perforation into sigmoid mesentry w/o abscess -12/22/16 CT Abdomen: Interval worsening of inflammatory change at the level of the sigmoid colon, findings sequela of sigmoid diverticulitis with micro- perforation. No abscess at this time. Follow up colonoscopy to r/o malignancy given family history. -12/15/16 He was admitted and treated conservatively with Cipro and Flagyl IV antbx x 4 days and DC home with oral x 7 days. -Patient failed treatment with cipro and flagyl and thus was admitted and started on IV Zosyn. Continue Zosyn with plan for patient to remain on IV Zosyn for 7-10 days. -Per Dr. Bocanegra, General Surgeon, Dr. Mosqueda, will return to [facility] on Wednesday (12.29.2016) and I will plan to have Dr. Clarke see the patient to discuss ongoing management with the patient on Wednesday. Appreciate his input and recommendations. -Change diet to full liquids + Ensure TID Tobacco Abuse -Counseled on cessation -Nicotine patch Code status: Full Code VTE ppx: Lovenox and ambulate GI ppx: Protonix PO - Problems/Diagnosis (1) Diverticulitis of large intestine with perforation without bleeding Problem: Acute
[2016-12-26] MEDS: ENOXAPARIN SODIUM 40 MG/0.4 ML SYRG SC SCH (16:42)
[2016-12-26] MEDS: NICOTINE 14 MG PATC TD SCH (16:43)
[2016-12-27] MEDS: PIPERACILLIN SODIUM/TAZOBACTAM 3.375 GM in DEXTROSE 5 % IN WATER 100 ML IV SCH ×6 (00:58→16:35)
[2016-12-27] MEDS ORDERED: ALPRAZolam 0.25 MG TABLET PO ONE (03:17)
[2016-12-27] MEDS: PANTOPRAZOLE SODIUM 40 MG TABLET.EC PO SCH (06:30)
--- NOTE | 2016-12-27 06:37 | PN ---
Subjective - Date and Time Seen Date: 12/27/16 Time: 06:30 Subjective Narrative: Patient was seen today and stated he feel like he was having withdrawal from Dilaudid. Pt stated he is unable to sleep and feeling restless. He have taken Xanax before when his s/s got too bothersome. pt stated he no longer want to be taking Dilaudid for pain control and wishes for it to be discontinued. Objective - Review of Systems Generalized/Overall Review: Reports: No Symptoms Reported EENTM: Reports: No Symptoms Reported Respiratory: Reports: No Symptoms Reported Cardiac: Reports: No Symptoms Reported Abdominal: Reports: No Symptoms Reported Genitourinary Symptoms: Reports: No Symptoms Reported Neurological: Reports: Anxiety Skin: Reports: No Symptoms Reported Endocrine: Reports: No Symptoms Reported - Vitals Vitals: Last Vital Signs Temp 36.8 C 12/27/16 04:39 Pulse 70 12/27/16 04:39 Resp 20 12/27/16 04:39 BP 120/90 12/27/16 04:39 Pulse Ox 96 12/27/16 04:39 - Abnormal Lab Findings Abnormal Lab Findings: Abnormal Lab Results 12/27/16 Range/Units 05:45 C-Reactive Prot, Quant 1.8 H (0.0-0.9) mg/dL - Exam Constitutional: Present: Alert, Oriented x3, Cooperative, Well developed, No distress ENT Exam: Present: moist mucous membranes Neck: Present: full range of motion Respiratory: Present: chest non-tender, lungs clear, normal breath sounds, no respiratory distress, no accessory muscle use Cardiovascular/Chest: Present: normal peripheral pulses, regular rate, rhythm, no chest tenderness, no edema, no gallop Abdomen: Present: Normal bowel sounds, soft, nontender, nondistended, no rebound tenderness Extremity: Present: normal range of motion, non-tender, no calf tenderness, normal capillary refill Skin Exam: Present: normal color, warm/dry, no cyanosis Neurologic: Present: oriented x 3 Appearance: Present: appropriate insight Eye contact: Present: cooperative Thoughts: Present: normal thought pattern, no apparent hallucination Assessment/Plan Plan Narrative: Diverticulitis with micro-perforation: seen 12/15/16 CT Abdomen: Diverticulitis with contaminated perforation into sigmoid mesentry w/o abscess. -12/22/16 CT Abdomen: Interval worsening of inflammatory change at the level of the sigmoid colon, findings sequela of sigmoid diverticulitis with micro- perforation. No abscess at this time. Follow up colonoscopy to r/o malignancy given family history. -12/15/16 He was admitted and treated conservatively with Cipro and Flagyl IV antbx x 4 days and DC home with oral x 7 days. -Patient failed treatment with cipro and flagyl and thus was admitted and started on IV Zosyn. Continue Zosyn with plan for patient to remain on IV Zosyn for 7-10 days. -Per Dr. Bocanegra, General Surgeon, Dr. Mosqueda, will return to [facility] on Wednesday (12.29.2016) and I will plan to have Dr. Clarke see the patient to discuss ongoing management with the patient on Wednesday. Appreciate his input and recommendations. -Change diet to full liquids + Ensure TID and gradually advanced as tolerated Abdominal pain- resolved Dilaudid DC Tobacco Abuse -Counseled on cessation -Nicotine patch Code status: Full Code VTE ppx: Lovenox and ambulate GI ppx: Protonix PO Time 18 minutes - Problems/Diagnosis (1) Diverticulitis of large intestine with perforation without bleeding Problem: Acute
[2016-12-27] MEDS: GABAPENTIN 300 MG CAPSULE PO SCH ×3 (08:37→16:35)
[2016-12-27] MEDS: NICOTINE 14 MG PATC TD SCH (16:34)
[2016-12-27] MEDS: ENOXAPARIN SODIUM 40 MG/0.4 ML SYRG SC SCH (16:35)
[2016-12-28] MEDS: PIPERACILLIN SODIUM/TAZOBACTAM 3.375 GM in DEXTROSE 5 % IN WATER 100 ML IV SCH ×6 (00:46→16:50)
[2016-12-28] MEDS: PANTOPRAZOLE SODIUM 40 MG TABLET.EC PO SCH (06:51)
[2016-12-28] MEDS ORDERED: HYDROcodone/ACETAMINOPHEN 1 EACH TABLET PO PRN (07:51)
[2016-12-28] MEDS: HYDROcodone/ACETAMINOPHEN 1 EACH TABLET PO PRN ×2 (07:58→15:02)
[2016-12-28] MEDS: GABAPENTIN 300 MG CAPSULE PO SCH ×3 (09:13→16:50)
--- NOTE | 2016-12-28 11:45 | PN ---
Subjective - Date and Time Seen Date: 12/28/16 Time: 07:45 Subjective Narrative: Patient seen and examined at bedside this AM. Patient had sudden onset severe abdominal pain this AM. He states the pain is the same pain he has had previously and is located around his belly button. He denies any association with eating or BMs. Objective - Review of Systems Generalized/Overall Review: Reports: Weakness, Fatigue. Denies: Fever EENTM: Reports: No Symptoms Reported Respiratory: Reports: No Symptoms Reported Cardiac: Reports: No Symptoms Reported Abdominal: Reports: Abdominal Pain Genitourinary Symptoms: Reports: No Symptoms Reported Musculoskeletal Complaints: Reports: No Symptoms Reported Neurological: Reports: No Symptoms Reported Skin: Reports: No Symptoms Reported Endocrine: Reports: No Symptoms Reported Misc: All systems neg except as marked - Vitals Vitals: Last Vital Signs Temp 36.5 C 12/28/16 09:00 Pulse 67 12/28/16 09:00 Resp 18 12/28/16 09:00 BP 119/62 12/28/16 09:00 Pulse Ox 95 12/28/16 09:00 - Exam Constitutional: Present: Alert, Oriented x3, Cooperative, Well developed, Well nourished, Acute distress - secondary to abdominal pain ENT Exam: Present: hearing grossly normal, moist mucous membranes Respiratory: Present: lungs clear, normal breath sounds, no respiratory distress , no accessory muscle use Cardiovascular/Chest: Present: regular rate, rhythm, no edema, no murmur Abdomen: Present: soft, tender, rebound tenderness Extremity: Present: normal inspection, no pedal edema Skin Exam: Present: warm/dry, no cyanosis Neurologic: Present: no motor/sensory deficits, alert, normal mood/affect, oriented x 3 Appearance: Present: appropriate appearance, appropriate insight, neat, no memory impairment Eye contact: Present: good eye contact, normal speech Thoughts: Present: normal thought pattern, no apparent hallucination Assessment/Plan Plan Narrative: IMPRESSION & PLAN: Diverticulitis with micro-perforation -12/15/16 CT Abdomen: Diverticulitis with contaminated perforation into sigmoid mesentry w/o abscess -12/22/16 CT Abdomen: Interval worsening of inflammatory change at the level of the sigmoid colon, findings sequela of sigmoid diverticulitis with micro- perforation. No abscess at this time. Follow up colonoscopy to r/o malignancy given family history. -12/15/16 He was admitted and treated conservatively with Cipro and Flagyl IV antbx x 4 days and DC home with oral x 7 days. -Patient failed treatment with cipro and flagyl and thus was admitted and started on IV Zosyn. Continue Zosyn with plan for patient to remain on IV Zosyn for 7-10 days. Today is day #6. -Per Dr. Bocanegra, General Surgeon, Dr. Mosqueda, will return to [facility] on Wednesday (12.29.2016) and I will plan to have Dr. Clarke see the patient to discuss ongoing management with the patient on Wednesday. Appreciate his input and recommendations. -Regular diet as tolerated -Pain medication PRN Tobacco Abuse -Counseled on cessation -Nicotine patch Code status: Full Code VTE ppx: Lovenox and ambulate GI ppx: Protonix PO - Problems/Diagnosis (1) Diverticulitis of large intestine with perforation without bleeding Problem: Acute
[2016-12-28] MEDS: ENOXAPARIN SODIUM 40 MG/0.4 ML SYRG SC SCH (16:49)
[2016-12-28] MEDS: NICOTINE 14 MG PATC TD SCH (16:50)
[2016-12-28] MEDS: HYDROmorphone HCL 1 MG/ML DISP.SYRIN IV PRN ×5 (20:31→23:04)
[2016-12-28 20:33] LABS: Hematocrit 42.2 % (42.0-52.0); Hemoglobin 14.5 gm/dL (13.5-18.0); Mean Cell Volume 86.5 fl (78-100); Mean Corpuscular Hemoglobin 29.7 pg (27-31); Mean Corpuscular Hgb Conc 34.4 g/dl (32-36); Mean Platelet Volume 8.9 fl (6.0-9.5); Neutrophil # 12.5 K/mm3 (1.3-6.0); Neutrophil % 75.5 % (42-75.0); Platelet Count 314 K/mm3 (150-450); Red Blood Count 4.88 M/mm3 (4.7-6.0); White Blood Count 16.5 K/mm3 (4.0-10.5)
[2016-12-29] MEDS: HYDROmorphone HCL 1 MG/ML DISP.SYRIN IV PRN ×11 (00:37→20:27)
[2016-12-29] MEDS: PIPERACILLIN SODIUM/TAZOBACTAM 3.375 GM in DEXTROSE 5 % IN WATER 100 ML IV SCH ×6 (00:42→16:35)
[2016-12-29 06:07] LABS: Hematocrit 43.4 % (42.0-52.0); Hemoglobin 14.9 gm/dL (13.5-18.0); Mean Cell Volume 86.1 fl (78-100); Mean Corpuscular Hemoglobin 29.6 pg (27-31); Mean Corpuscular Hgb Conc 34.3 g/dl (32-36); Mean Platelet Volume 9.1 fl (6.0-9.5); Neutrophil # 12.8 K/mm3 (1.3-6.0); Neutrophil % 77.2 % (42-75.0); Platelet Count 339 K/mm3 (150-450); Red Blood Count 5.04 M/mm3 (4.7-6.0); Red Cell Distribution Width 12.3 % (11.5-14.0); White Blood Count 16.6 K/mm3 (4.0-10.5)
[2016-12-29 06:17] LABS: Anion Gap 14.8 mmol/L (6.8-13.8); BUN/Creatinine Ratio 8.8 (9.0-21.6); CRP 10.5 mg/dL (0.0-0.9); Calcium * 8.6 mg/dL (7.9-10.9); Carbon Dioxide 24.7 mmol/L (24-32.6); Estimated Creat Clear 83.6; Potassium 3.5 mmol/L (3.4-4.6)
[2016-12-29] MEDS: NORMAL SALINE 1,000 ML IV PRN ×2 (07:00→18:34)
[2016-12-29] MEDS: PANTOPRAZOLE SODIUM 40 MG in NORMAL SALINE 100 ML IV SCH (07:07)
[2016-12-29] MEDS: GABAPENTIN 300 MG CAPSULE PO SCH ×3 (08:52→16:27)
[2016-12-29] MEDS ORDERED: DIATRIZOATE MEGLU/DIATRIZO SOD 30 ML BTL PO ONE (09:44)
--- NOTE | 2016-12-29 13:40 | PN ---
Subjective - Date and Time Seen Date: 12/29/16 Time: 13:33 Subjective Narrative: Patient seen and examined at bedside this AM. Patient continues to have worsening abdominal pain. He states the pain is the same pain he has had previously and is located around his belly button. He denies any association with eating or BMs. He is scheduled for a CT scan later this afternoon. Objective - Review of Systems Generalized/Overall Review: Reports: Weakness, Fatigue EENTM: Reports: No Symptoms Reported Respiratory: Reports: No Symptoms Reported Cardiac: Reports: No Symptoms Reported Abdominal: Reports: Abdominal Pain Genitourinary Symptoms: Reports: No Symptoms Reported Musculoskeletal Complaints: Reports: No Symptoms Reported Neurological: Reports: No Symptoms Reported Skin: Reports: No Symptoms Reported Endocrine: Reports: No Symptoms Reported Misc: All systems neg except as marked - Vitals Vitals: Last Vital Signs Temp 37.5 C 12/29/16 10:51 Pulse 95 12/29/16 10:51 Resp 20 12/29/16 10:51 BP 117/75 12/29/16 10:51 Pulse Ox 96 12/29/16 10:51 - Abnormal Lab Findings Abnormal Lab Findings: Abnormal Lab Results 12/28/16 12/28/16 12/29/16 Range/Units 20:25 20:25 06:00 WBC 16.5 H D 16.6 H (4.0-10.5) K/mm3 Immature Gran % (Auto) 0.50 H 0.70 H (0.001-0.429) % Immature Gran # (Auto) 0.09 H 0.11 H (0.000-0.0310) K/mm3 Neutrophils % 75.5 H 77.2 H (42-75.0) % Lymphocytes % 14.7 L 12.9 L (20-51) % Neutrophils # 12.5 H 12.8 H (1.3-6.0) K/mm3 Monocytes # 1.2 H 1.3 H (0.0-1.0) k/mm3 ESR (0-10) mm/hr Anion Gap (6.8-13.8) mmol/L BUN/Creatinine Ratio (9.0-21.6) Random Glucose (70-110) mg/dL C-Reactive Prot, Quant 2.0 H (0.0-0.9) mg/dL 12/29/16 12/29/16 Range/Units 06:00 06:00 WBC (4.0-10.5) K/mm3 Immature Gran % (Auto) (0.001-0.429) % Immature Gran # (Auto) (0.000-0.0310) K/mm3 Neutrophils % (42-75.0) % Lymphocytes % (20-51) % Neutrophils # (1.3-6.0) K/mm3 Monocytes # (0.0-1.0) k/mm3 ESR 37 H (0-10) mm/hr Anion Gap 14.8 H (6.8-13.8) mmol/L BUN/Creatinine Ratio 8.8 L (9.0-21.6) Random Glucose 111 H (70-110) mg/dL C-Reactive Prot, Quant 10.5 H (0.0-0.9) mg/dL - Exam Constitutional: Present: Alert, Oriented x3, Cooperative, Well developed, Well nourished, Mild distress - secondary to abdominal pain ENT Exam: Present: hearing grossly normal, moist mucous membranes Respiratory: Present: lungs clear, normal breath sounds, no respiratory distress , no accessory muscle use Cardiovascular/Chest: Present: regular rate, rhythm, no edema, no murmur Abdomen: Present: soft, tender, rebound tenderness Extremity: Present: non-tender, normal inspection, no pedal edema Skin Exam: Present: warm/dry, no cyanosis Neurologic: Present: alert, normal mood/affect, oriented x 3 Appearance: Present: appropriate appearance, appropriate insight, neat, no memory impairment Eye contact: Present: cooperative, good eye contact, normal speech Thoughts: Present: normal thought pattern, no apparent hallucination Assessment/Plan Plan Narrative: IMPRESSION & PLAN: Diverticulitis with micro-perforation -12/15/16 CT Abdomen: Diverticulitis with contaminated perforation into sigmoid mesentry w/o abscess -12/22/16 CT Abdomen: Interval worsening of inflammatory change at the level of the sigmoid colon, findings sequela of sigmoid diverticulitis with micro- perforation. No abscess at this time. Follow up colonoscopy to r/o malignancy given family history. -12/15/16 He was admitted and treated conservatively with Cipro and Flagyl IV antbx x 4 days and DC home with oral x 7 days. -Patient failed treatment with cipro and flagyl and thus was admitted and started on IV Zosyn. Continue Zosyn with plan for patient to remain on IV Zosyn for 7-10 days. Today is day #7. -Dr. Mosqueda evaluated patient this AM and plan is for patient to have a repeat CT scan later this afternoon due to concern for possible abscess. -Pain medication PRN Tobacco Abuse -Counseled on cessation -Nicotine patch Code status: Full Code VTE ppx: Lovenox and ambulate GI ppx: Protonix PO Disposition: Await CT report. If there is an abscess, patient will need to be transferred for percutaneous drain placement. If there is no abscess, patient will likely need to undergo a Rohit's Procedure (surgical resection of the affected portion of the colon and formation of an end colostomy). - Problems/Diagnosis (1) Diverticulitis of large intestine with perforation without bleeding Problem: Acute
[2016-12-29] MEDS: ENOXAPARIN SODIUM 40 MG/0.4 ML SYRG SC SCH (16:27)
[2016-12-29] MEDS: NICOTINE 14 MG PATC TD SCH (16:28)
--- NOTE | 2016-12-29 16:43 | PN ---
Subjective - Date and Time Seen Date: 12/29/16 Time: 16:27 Subjective Narrative: Pt well known to me with recurrent admission for LLQ pain associated with confined perforation of sigmoid diverticulitis. Is having ongoing suprapubic and LLQ pain today. Objective - Review of Systems Abdominal: Reports: Abdominal Pain - Vitals Vitals: Last Vital Signs Temp 37.2 C 12/29/16 14:00 Pulse 91 12/29/16 14:00 Resp 18 12/29/16 14:00 BP 137/80 12/29/16 14:00 Pulse Ox 98 12/29/16 14:00 - Abnormal Lab Findings Abnormal Lab Findings: Abnormal Lab Results 12/28/16 12/28/16 12/29/16 Range/Units 20:25 20:25 06:00 WBC 16.5 H D 16.6 H (4.0-10.5) K/mm3 Immature Gran % (Auto) 0.50 H 0.70 H (0.001-0.429) % Immature Gran # (Auto) 0.09 H 0.11 H (0.000-0.0310) K/mm3 Neutrophils % 75.5 H 77.2 H (42-75.0) % Lymphocytes % 14.7 L 12.9 L (20-51) % Neutrophils # 12.5 H 12.8 H (1.3-6.0) K/mm3 Monocytes # 1.2 H 1.3 H (0.0-1.0) k/mm3 ESR (0-10) mm/hr Anion Gap (6.8-13.8) mmol/L BUN/Creatinine Ratio (9.0-21.6) Random Glucose (70-110) mg/dL C-Reactive Prot, Quant 2.0 H (0.0-0.9) mg/dL 12/29/16 12/29/16 Range/Units 06:00 06:00 WBC (4.0-10.5) K/mm3 Immature Gran % (Auto) (0.001-0.429) % Immature Gran # (Auto) (0.000-0.0310) K/mm3 Neutrophils % (42-75.0) % Lymphocytes % (20-51) % Neutrophils # (1.3-6.0) K/mm3 Monocytes # (0.0-1.0) k/mm3 ESR 37 H (0-10) mm/hr Anion Gap 14.8 H (6.8-13.8) mmol/L BUN/Creatinine Ratio 8.8 L (9.0-21.6) Random Glucose 111 H (70-110) mg/dL C-Reactive Prot, Quant 10.5 H (0.0-0.9) mg/dL - EKG/Xray Findings XRAY: CT abd/pelvis Interpretation: Interp. by me, Reviewed by me - Exam Constitutional: Present: Alert, Oriented x3, Cooperative, No distress Respiratory: Present: no respiratory distress Abdomen: Present: tender, guarding - suprapubic and llq Assessment/Plan Plan Narrative: A: Confined perforation of sigmoid diverticulitis, improved by CT P: The free air in the sigmoid mesentery has largely resolved and no abscess is seen. Would favor ongoing antibiotics. Pt has many social issues. Mother is on liver transplant list. Worried about job. Worried about mounting bills. A Rohit's procedure at this point would be a 6 week convalescence barring complications. Offered a second opinion at the [facility] regarding this problem and the possibility of a minimally invasive approach or robotic approach which is something that I don't offer here.
[2016-12-30] MEDS: PIPERACILLIN SODIUM/TAZOBACTAM 3.375 GM in DEXTROSE 5 % IN WATER 100 ML IV SCH ×6 (01:16→17:18)
[2016-12-30] MEDS: NORMAL SALINE 1,000 ML IV PRN ×2 (04:52→16:30)
[2016-12-30] MEDS: HYDROmorphone HCL 1 MG/ML DISP.SYRIN IV PRN ×6 (04:53→23:16)
[2016-12-30] MEDS: PANTOPRAZOLE SODIUM 40 MG in NORMAL SALINE 100 ML IV SCH (06:33)
[2016-12-30] MEDS: GABAPENTIN 300 MG CAPSULE PO SCH ×3 (09:03→16:31)
--- NOTE | 2016-12-30 09:44 | PN ---
Subjective - Date and Time Seen Date: 12/30/16 Time: 09:38 Subjective Narrative: Patient seen and examined at bedside this AM. Patient continues to have abdominal pain; however, he admits that it is improved and fairly well controlled on his current pain regimen. He states the pain is the same pain he has had previously and is located around his belly button. He denies any association with eating or BMs. Objective - Review of Systems Generalized/Overall Review: Reports: Weakness, Fatigue EENTM: Reports: No Symptoms Reported Respiratory: Reports: No Symptoms Reported Cardiac: Reports: No Symptoms Reported Abdominal: Reports: Abdominal Pain Genitourinary Symptoms: Reports: No Symptoms Reported Musculoskeletal Complaints: Reports: No Symptoms Reported Neurological: Reports: No Symptoms Reported Skin: Reports: No Symptoms Reported Endocrine: Reports: No Symptoms Reported Misc: All systems neg except as marked - Vitals Vitals: Last Vital Signs Temp 36.7 C 12/30/16 07:37 Pulse 74 12/30/16 07:37 Resp 16 12/30/16 07:37 BP 111/71 12/30/16 07:37 Pulse Ox 96 12/30/16 07:37 - Exam Constitutional: Present: Alert, Oriented x3, Cooperative, Well developed, Well nourished, No distress ENT Exam: Present: hearing grossly normal, moist mucous membranes Respiratory: Present: lungs clear, normal breath sounds, no respiratory distress , no accessory muscle use Cardiovascular/Chest: Present: regular rate, rhythm, no edema, no murmur Abdomen: Present: soft, tender, guarding - voluntary guarding, rebound tenderness. Absent: rigidity Extremity: Present: normal inspection, no pedal edema Skin Exam: Present: warm/dry, no cyanosis Neurologic: Present: alert, oriented x 3, depressed affect Appearance: Present: appropriate appearance, appropriate insight, neat, no memory impairment Eye contact: Present: cooperative, good eye contact, normal speech Thoughts: Present: normal thought pattern, no apparent hallucination Assessment/Plan Plan Narrative: IMPRESSION & PLAN: Diverticulitis with micro-perforation -12/15/16 CT Abdomen: Diverticulitis with contaminated perforation into sigmoid mesentry w/o abscess -12/22/16 CT Abdomen: Interval worsening of inflammatory change at the level of the sigmoid colon, findings sequela of sigmoid diverticulitis with micro- perforation. No abscess at this time. Follow up colonoscopy to r/o malignancy given family history. -12/15/16 He was admitted and treated conservatively with Cipro and Flagyl IV antbx x 4 days and DC home with oral x 7 days. -Patient failed treatment with cipro and flagyl and thus was admitted and started on IV Zosyn. Continue Zosyn with plan for patient to remain on IV Zosyn for 7-10 days. Today is day #8. -CT abd/pelvis with contrast on 12/29/2016 showed ongoing inflammatory changes with microperforation likely from complicated sigmoid diverticulitis. No interval detrimental change. Findings are similar to prior exam. -Case discussed with Dr. Mosqueda this AM. No plans for surgery at this time. Continue current cares. -Pain medication PRN Tobacco Abuse -Counseled on cessation -Nicotine patch Code status: Full Code VTE ppx: Lovenox and ambulate GI ppx: Protonix PO - Problems/Diagnosis (1) Diverticulitis of large intestine with perforation without bleeding Problem: Acute
--- NOTE | 2016-12-30 11:06 | PN ---
Subjective - Date and Time Seen Date: 12/30/16 Time: 11:03 Subjective Narrative: FU diverticulitis Having ongoing pain. States pain is improved since the time of admission Objective Objective Narrative: Pt has just awakened. - Review of Systems Abdominal: Reports: Abdominal Pain - Vitals Vitals: Last Vital Signs Temp 36.5 C 12/30/16 10:34 Pulse 75 12/30/16 10:34 Resp 16 12/30/16 10:34 BP 112/65 12/30/16 10:34 Pulse Ox 95 12/30/16 10:34 - Exam Constitutional: Present: Alert, Oriented x3, Cooperative, No distress Respiratory: Present: no respiratory distress Assessment/Plan Plan Narrative: A: Confined perf sigmoid diverticulitis P: Case d/w Dr. Caceres. His CT is improved. Pain seems to be his main issue now. OK to resume PO slowly.
[2016-12-30] MEDS: NICOTINE 14 MG PATC TD SCH (16:30)
[2016-12-30] MEDS: ENOXAPARIN SODIUM 40 MG/0.4 ML SYRG SC SCH (16:31)
[2016-12-31] MEDS: PIPERACILLIN SODIUM/TAZOBACTAM 3.375 GM in DEXTROSE 5 % IN WATER 100 ML IV SCH ×6 (00:22→16:31)
[2016-12-31] MEDS: HYDROmorphone HCL 2 MG/ML VIAL IV PRN ×2 (01:16→04:29)
[2016-12-31] MEDS: NORMAL SALINE 1,000 ML IV PRN ×2 (04:24→15:46)
[2016-12-31] MEDS: PANTOPRAZOLE SODIUM 40 MG in NORMAL SALINE 100 ML IV SCH (07:27)
[2016-12-31] MEDS: GABAPENTIN 300 MG CAPSULE PO SCH ×3 (09:10→16:28)
[2016-12-31] MEDS: HYDROmorphone HCL 1 MG/ML DISP.SYRIN IV PRN (09:10)
--- NOTE | 2016-12-31 14:39 | PN ---
Subjective - Date and Time Seen Date: 12/31/16 Time: 14:38 Subjective Narrative: FU complicated diverticulitis. Feeling much better. Pain significantly improved. Tolerating clears. Objective - Review of Systems Generalized/Overall Review: Reports: No Symptoms Reported EENTM: Reports: No Symptoms Reported Respiratory: Reports: No Symptoms Reported Cardiac: Reports: No Symptoms Reported Abdominal: Reports: Abdominal Pain Genitourinary Symptoms: Reports: No Symptoms Reported Musculoskeletal Complaints: Reports: No Symptoms Reported Neurological: Reports: No Symptoms Reported Skin: Reports: No Symptoms Reported Endocrine: Reports: No Symptoms Reported Misc: All systems neg except as marked - Vitals Vitals: Last Vital Signs Temp 36.8 C 12/31/16 11:14 Pulse 74 12/31/16 11:14 Resp 16 12/31/16 11:14 BP 118/84 12/31/16 11:14 Pulse Ox 97 12/31/16 11:14 - Exam Constitutional: Present: Alert, Oriented x3, Cooperative, No distress ENT Exam: Present: normal ENT inspection Neck: Present: normal inspection Respiratory: Present: no respiratory distress, no accessory muscle use Neurologic: Present: no motor/sensory deficits Appearance: Present: appropriate appearance, appropriate insight, no memory impairment Eye contact: Present: good eye contact Thoughts: Present: normal thought pattern Assessment/Plan Plan Narrative: Agree with 10 days of IV abx. Recommend an all-cooked diet on discharge. Recommend 7 days augmentin/flagyl post discharge FU with me in January
[2016-12-31] MEDS: NICOTINE 14 MG PATC TD SCH (16:28)
[2016-12-31] MEDS: ENOXAPARIN SODIUM 40 MG/0.4 ML SYRG SC SCH (16:28)
--- NOTE | 2016-12-31 17:27 | PN ---
Subjective - Date and Time Seen Date: 12/31/16 Time: 13:48 Subjective Narrative: abdominal pain much improved. no nausea / vomiting. surgery following. tolerating clear liquid diet. on day 9 of iv abx for diverticulitis. ct done 2 days ago much improved. Objective - Review of Systems Generalized/Overall Review: Reports: No Symptoms Reported EENTM: Reports: No Symptoms Reported Respiratory: Reports: No Symptoms Reported Cardiac: Reports: No Symptoms Reported Abdominal: Reports: No Symptoms Reported Genitourinary Symptoms: Reports: No Symptoms Reported Musculoskeletal Complaints: Reports: No Symptoms Reported Neurological: Reports: No Symptoms Reported Skin: Reports: No Symptoms Reported Endocrine: Reports: No Symptoms Reported Misc: All systems neg except as marked - Vitals Vitals: Last Vital Signs Temp 36.9 C 12/31/16 14:55 Pulse 73 12/31/16 14:55 Resp 18 12/31/16 14:55 BP 128/83 12/31/16 14:55 Pulse Ox 98 12/31/16 14:55 - Exam Constitutional: Present: Alert, Oriented x3, Cooperative, No distress ENT Exam: Present: hearing grossly normal, dry mucous membranes Neck: Present: full range of motion, supple Breasts: Present: Exam deferred Respiratory: Present: lungs clear, normal breath sounds, no accessory muscle use Cardiovascular/Chest: Present: normal peripheral pulses, regular rate, rhythm, no chest tenderness Abdomen: Present: soft, nontender, nondistended /Rectal: Present: Exam deferred Extremity: Present: normal range of motion, non-tender, normal inspection Skin Exam: Present: normal color, warm/dry, no cyanosis Neurologic: Present: alert, oriented x 3 Assessment/Plan Plan Narrative: Diverticulitis with micro-perforation -12/15/16 CT Ab: Diverticulitis with contained perforation into sigmoid no abscess -12/22/16 CT Ab: worsening of inflammatory change at the level of the sigmoid colon, findings sequela of sigmoid diverticulitis with micro- perforation. No abscess -Failed prior treatment with cipro and flagyl iv. started on zosyn iv this admit. today is day 9 of abx. surgery recommends 10 days of abx. Pt currently tolerating clear liquid diet. Surgery to advance pt to full liquid diet tonight. - CT abd/pelvis on 12/29/16 showed improvement but ongoing inflammatory changes. -Case discussed with Dr. Mosqueda. No plans for surgery at this time. Continue current cares. -Pain medication PRN Tobacco Abuse -Nicotine patch Code status: Full Code VTE: Lovenox GI proph: Protonix - Problems/Diagnosis (1) Tobacco abuse Problem: Chronic (2) Diverticulitis of large intestine with perforation without bleeding Problem: Acute
[2017-01-01] MEDS: PIPERACILLIN SODIUM/TAZOBACTAM 3.375 GM in DEXTROSE 5 % IN WATER 100 ML IV SCH ×4 (01:34→09:32)
[2017-01-01] MEDS: NORMAL SALINE 1,000 ML IV PRN (02:47)
[2017-01-01] MEDS: PANTOPRAZOLE SODIUM 40 MG in NORMAL SALINE 100 ML IV SCH (07:02)
[2017-01-01] MEDS: GABAPENTIN 300 MG CAPSULE PO SCH ×2 (09:32→12:18)
--- NOTE | 2017-01-01 10:41 | PN ---
Subjective - Date and Time Seen Date: 01/01/17 Time: 10:40 Subjective Narrative: Feeling significantly improved Objective - Review of Systems Misc: All systems neg except as marked - Vitals Vitals: Last Vital Signs Temp 37 C 01/01/17 06:30 Pulse 70 01/01/17 06:30 Resp 12 01/01/17 06:30 BP 114/67 01/01/17 06:30 Pulse Ox 96 01/01/17 06:30 - Exam Constitutional: Present: Alert, Oriented x3, Cooperative, No distress Neck: Present: normal inspection Respiratory: Present: no respiratory distress, no accessory muscle use Assessment/Plan Plan Narrative: Agree with finishing Abx for today then DC. FU with me in 1 month.
[2017-01-01 13:54] LABS: Hematocrit 37.6 % (42.0-52.0); Hemoglobin 12.5 gm/dL (13.5-18.0); Mean Cell Volume 86.8 fl (78-100); Mean Corpuscular Hemoglobin 28.9 pg (27-31); Mean Corpuscular Hgb Conc 33.2 g/dl (32-36); Neutrophil # 4.6 K/mm3 (1.3-6.0); Neutrophil % 65.9 % (42-75.0); Platelet Count 331 K/mm3 (150-450); Red Blood Count 4.33 M/mm3 (4.7-6.0); Red Cell Distribution Width 11.9 % (11.5-14.0)
[2017-01-01 14:11] LABS: Albumin * 2.9 gm/dl (3.4-5.0); Anion Gap 13.4 mmol/L (6.8-13.8); BUN/Creatinine Ratio 5.9 (9.0-21.6); Bilirubin, Total 0.3 mg/dL (0.0-1.1); CRP 5.6 mg/dL (0.0-0.9); Ca. Corrected For Albumin 9.4 mg/dL (8.4-10.2); Calcium * 8.8 mg/dL (7.9-10.9); Carbon Dioxide 25.4 mmol/L (24-32.6); Potassium 3.8 mmol/L (3.4-4.6); Total Protein 7.2 gm/dL (6.2-8.2)
[2017-01-01 14:39] VITALS: BP 130/87
--- NOTE | 2017-01-01 15:22 | DS ---
(1) Diverticulitis of large intestine with perforation without bleeding Problem: Acute (2) Tobacco abuse Problem: Chronic Description of Stay: Date of admission: 12/22/16 Date of discharge: 01/01/17 Description of stay: 12/22/16 46 year old male admitted with abdominal pain with n/v, previous admission 12/15/16 to 12/18/16 for same diagnosis treated with iv cipro and iv flagyl and sent home with 7 days of oral abx. started on iv zosyn and iv pain medication and NPO. 12/23/16 through 12/25/16 continue iv abx, iv pain medications prn and NPO 12/26/16 improving start clear diet 12/27/16 improving, advance diet to full liquid diet 12/28/16 severe mid abdominal pain, on regular diet, pain meds prn, abdominal xray non acute 12/29/16 worsening abdominal pain, NPO, CT scan done and shows ongoing inflammatory changed with microperf likely from complicated sigmoid diverticulitis, no abscess, no significant change from CT scan done on admission. 12/30/16 abdominal pain stable, no changes, pain meds prn, cont iv abx. 12/31/16 abdominal pain improved, clear liquid diet, cont iv abx 01/01/17 d/c with all cooked diet, augmentin and flagyl po x 7 days, f/u with general surgery in 1 month. Procedures Performed: see notes below Discharge Disposition: Home self care Disposition: Home self-care Condition: Undetermined Discharge Activity: Activity as tolerated Discharge Diet: [facility] soft, Other - All cooked diet - no raw foods Consultation Done:: Dr Brantley Problem Oriented Discharge Instructions to Patient/Family: Diverticulitis, Easy -to-Read, Soft-Food Meal Plan, Low-Fiber Diet Additional Patient Instructions (free text): Fax H&P and discharge summary to patient's PCP, . Follow up with Dr.Nara Bailey at [place] on 01-08-17 @ 2:00pm. Eat an all cooked diet - no raw food. 7 days of antibiotics after discharge Augmentin 875 mg PO BID x 7 days Flagyl 500 mg PO TID x 7 days Do NOT drink any alcohol while taking Flagyl or for 72 hours after last dose. F/u with Dr Mosqueda in 02-01-17 @ 9:00am. Prescriptions (Any new or edited meds): Amox Tr/Potassium Clavulanate [Augmentin 875-125 Tablet] 875 mg PO Q12H #14 tab metroNIDAZOLE [Flagyl] 500 mg PO Q8H #21 tablet Complete Home Medications List: Complete Home Medication List: Gabapentin 900 mg PO TID 12/15/16 Acetaminophen [Tylenol] 650 mg PO QID PRN #0 tablet 01/01/17 Amox Tr/Potassium Clavulanate [Augmentin 875-125 Tablet] 875 mg PO Q12H #14 tab 01/01/17 metroNIDAZOLE [Flagyl] 500 mg PO Q8H #21 tablet 01/01/17
--- NOTE | 2017-01-09 16:32 | CONS ---
HPI - General Date of Service: 12/22/16 - Patient was seen 1745 Narrative: The patient was seen at the time of admission to the floor, however although the case was discussed in real time with Dr Caceres and Lashaun Dominique NP, documentation was not done until later due to other clinical commitments Source: patient, RN/MD, RN notes reviewed, old records Exam Limitations: no limitations - History of Present Illness Initial Comments: The patient was initially treated for diverticulitis in [facility] where he was hospitalized for 4 days in November and treated with IV antibiotics. He was discharged on an additional 7 days of po antibiotics. He was scheduled for follow-up with a dining host however became more ill on 12/16/16 and presented to the emergency room here. CT scan demonstrated sigmoid: Inflammation with possible microperforation but no diane abscess. He was admitted to acute care and treated with IV Cipro and Flagyl. At that time he was seen in surgical consultation by Dr. Rios. He was discharged home on 12/18/2016 on po Cipro 50mg BID and Flagyl 500 mg po Q8hrs. He developed worsening abdominal pain on 12/21/2016 and presented today to the ER for evaluation. CT scan demonstrates worsening inflammation however there are still only localized signs of microperforation with no diane abscess or free air outside the left lower quadrant. Severity: moderate Modifying Factors - (Worsens): Reports: movement Modifying Factors - (Improves): Reports: immobilization Associated Symptoms: other - No fever or chills although he has felt warm Allergies/Adverse Reactions: Allergies naproxen Adverse Reaction (Mild, Verified 12/22/16 09:26) "severe heartburn" Home Medications: Home Medications Medication Instructions Recorded Last Taken Gabapentin 900 mg PO TID 12/15/16 Unknown - Patient's Past Medical History Patient History - Medical: Arthritis, Depression, Headache, Migraines, Osteoarthritis, Other - diverticulitis Patient History - Cardiac/Respiratory: No pertinent hx Patient History - Cancer: No Hx of Cancer Patient History - Surgical Procedures: Colonoscopy, EGD, Other - Left knee arthroscopy x3 Patient History - Other: None - Family History Mother Family History - Medical: Diabetes Type 2, Other Family History - Cardiac/Respiratory: No pertinent hx Family History - Cancer: Other Father Family History - Medical: , No pertinent hx Family History - Cardiac/Respiratory: No pertinent hx Family History - Cancer: Colon - Social History Living Situations: spouse Abuse History: No History of abuse Psych History: No pertinent hx Smoking Status: Current every day smoker Have you smoked in the past 12 months: Yes - 1 pk daily Alcohol Use: none Drug Use: marijuana - Immunizations Immunizations Up to Date: Yes Hx Pneumococcal Vaccination: No History of Influenza Vaccine: Yes Procedures DRAINAGE OF RIGHT LOWER LEG SKIN, EXTERNAL APPROACH (04/04/16) INSPECTION OF LEFT KNEE JOINT, PERC ENDO APPROACH (10/01/16) Review of Systems - Review of Systems Generalized/Overall Review: Present: Malaise. Absent: Chills, Fever EENTM: Present: No Symptoms Reported Respiratory: Present: No Symptoms Reported. Absent: Cough, Shortness of Breath Cardiac: Absent: Chest Pain Abdominal: Present: Abdominal Pain. Absent: Nausea, Vomiting Genitourinary: Present: No Symptoms Reported Musculoskeletal: Present: No Symptoms Reported Neurological: Present: No Symptoms Reported Skin: Present: No Symptoms Reported Physical Examination - Exam Vital Signs: Vital Signs - Last Taken Temp 37.4 12/22/16 1604 Pulse 82 12/22/16 1604 Resp 18 12/22/16 1604 BP 141/92 12/22/16 1604 Pulse Ox 99 12/22/16 1604 O2 Oxygen Delivery Method Room Air Constitutional: Present: Alert, Oriented x3, Cooperative, Well nourished, Moderate distress ENT Exam: Present: normal ENT inspection Eye Exam: bilateral eye: normal inspection Neck: Present: full range of motion, normal inspection Respiratory: Present: lungs clear, no respiratory distress Cardiovascular/Chest: Present: regular rate, rhythm Abdomen: Present: soft, tender - He is slightly distended with tympany and tenderness to percussion in the lower abdomen. There is tenderness to palpation in the left lower quadrant with rebound. There is no percussion tenderness in the upper abdomen and no guarding to palpation there. Extremity: Present: normal range of motion, normal inspection, no pedal edema, no calf tenderness Skin Exam: Present: normal color, warm/dry Neurologic: Present: cath lab II-XII nml as tested, normal cerebellar test, no motor/ sensory deficits Appearance: Present: appropriate appearance, appropriate insight, neat Eye contact: Present: cooperative, good eye contact, normal speech Thoughts: Present: normal thought pattern - Results and Findings: Narrative: WBC 8800 with a normal hemoglobin - Assessments/Findings (1) Diverticulitis of large intestine with perforation without bleeding Diagnosis(s): The diverticulitis is still localized with no diane abscess formation or free abdominal perforation. His disease has progressed despite Cipro and Flagyl. I discussed the situation at length with him. Any operation at this point would involve a colostomy which may be avoided if the local inflammation can be controlled with antibiotics. Would recommend switching the antibiotic to Zosyn and following his progress with serial abdominal exams, ESR, CRP determinations. The case was discussed with Lashaun Dominique NP, Dr Caceres, and Nery Caputo RN his nurse. Problem: Acute
== END 2017-01-01 16:35 | disposition home or self-care (01) | DRG 392 ==
LOC: ER 09:11 → UNDOADMIN 14:43 → MS 14:43
PROVIDERS: ADMIT Internal Medicine; ATTEND Internal Medicine
DX: K57.20 Diverticulitis of large intestine with perforation and abscess without bleeding (principal); F17.210 Nicotine dependence, cigarettes, uncomplicated; Z79.82 Long term (current) use of aspirin

== ENCOUNTER 2017-03-31 11:19 | Inpatient (IN) | payer MEDICAID ==
[2017-03-31 11:52] LABS: Hemoglobin 14.3 gm/dL (13.5-18.0); Mean Cell Volume 85.2 fl (78-100); Mean Platelet Volume 9.1 fl (6.0-9.5); Neutrophil # 15.7 K/mm3 (1.3-6.0); Neutrophil % 80.7 % (42-75.0); Platelet Count 310 K/mm3 (150-450); Red Blood Count 4.93 M/mm3 (4.7-6.0); Red Cell Distribution Width 13.8 % (11.5-14.0); White Blood Count 19.4 K/mm3 (4.0-10.5)
[2017-03-31] MEDS ORDERED: NORMAL SALINE 1,000 ML IV ONE ×2 (11:53→16:27)
[2017-03-31] MEDS ORDERED: ONDANSETRON HCL/PF 2 MG/ML VIAL IV ONE (11:53)
--- NOTE | 2017-03-31 11:54 | ERNOTE ---
Abdominal HPI - Narrative Date of Service: 03/31/17 - General Chief Complaint: Abdominal Pain Time Seen by Provider: 03/31/17 11:47 Source: patient, RN notes reviewed, past records Exam Limitations: no limitations - Immun/Allergies/Home Medications Immunizatons: IMMUNIZATION HX Immunizations Up to Date Yes History of Influenza Vaccine Yes Hx Pneumococcal Vaccination No Allergies/Adverse Reactions: Allergies morphine Allergy (Verified 03/31/17 11:34) naproxen Adverse Reaction (Mild, Verified 03/31/17 11:34) "severe heartburn" Home Medications: HOME MEDICATIONS Gabapentin 900 mg PO TID 12/15/16 [Last Taken Unknown] - History of Present Illness Narrative: Fernandez is a 47 year old male who presents to the ED by private vehicle for lower abdominal pain that began earlier this morning. He has been hospitalized 4 times in the past 4 months for diverticulitis and reports this is the same pain he had then. He also reports nausea but no vomiting. His abdominal pain is worse when he urinates. Date (Duration): 03/31/17 Time (Timing): 03:00 Timing: constant Quality: severe, aching Activities at Onset: sleep Modifying Factors - (Improves): Present: other - nothing Modifying Factors - (Worsens): Present: movement, urinating Associated Symptoms: Present: nausea. Absent: headache, back pain, chest pain, neck pain, diarrhea-gross blood, diarrhea-mucous, fever/chills, heartburn, vomiting, swelling/mass in abdomen, syncope Prior Abdominal Problems: Present: similar symptoms Prior Treatment: Present: recently seen, treated by physician, recently hospitalized. Absent: currently on antibiotics Review of Systems - Review of Systems Constitutional: Present: See HPI EYE: Present: no symptoms reported ENT: Present: no symptoms reported Respiratory: Absent: shortness of breath, cough Cardiology: Absent: chest pain, syncope Gastrointestinal/Abdominal: Present: See HPI Genitourinary: Absent: frequency, hematuria Musculoskeletal: Present: See HPI Skin: Absent: rash, lesions Neurological: Absent: headache, dizziness/light-headedness Endocrine: Present: no symptoms reported Hematologic/Lymphatic: Absent: easy bruising, easy bleeding Psych: Present: no symptoms reported - Patient's Past Medical History Patient History - Medical: Arthritis, Depression, Headache, Migraines, Osteoarthritis, Other Patient History - Cardiac/Respiratory: No pertinent hx Patient History - Cancer: No Hx of Cancer Patient History - Surgical Procedures: Colonoscopy, EGD, Other Patient History - Other: None - Family History Mother Family History - Medical: Diabetes Type 2, Other Family History - Cardiac/Respiratory: No pertinent hx Family History - Cancer: Other Father Family History - Medical: , No pertinent hx Family History - Cardiac/Respiratory: No pertinent hx Family History - Cancer: Colon - Social History Living Situations: spouse Abuse History: No History of abuse Psych History: No pertinent hx Smoking Status: Current every day smoker Cigarettes Packs Per Day: 0.5 Alcohol Use: none Drug Use: marijuana - Immunizations Immunizations Up to Date: Yes Hx Pneumococcal Vaccination: No History of Influenza Vaccine: Yes Physical Exam - Physical Exam General Appearance: Present: wd/wn, alert, moderate distress, other - In position clutching abdomen Respiratory: Present: no respiratory distress, normal breath sounds, no accessory muscle use, lungs clear Cardiovascular/Chest: Present: regular rate, rhythm, no murmur, normal peripheral pulses Gastrointestinal/Abdominal: Present: normal bowel sounds, soft, tenderness - lower abdomen, distended - mildly, guarding Back Exam: Present: normal inspection, no CVA tenderness Extremity Exam: Present: normal inspection Neurological Exam: Present: alert, oriented, normal mood/affect, no motor/ sensory deficits Skin Exam: Present: normal color, warm/dry ED Progress - Results and Orders Patient's Lab Results:: I have reviewed the patient's lab results. Results and Orders: Laboratory Tests 03/31/17 03/31/17 03/31/17 11:42 11:42 11:42 WBC 19.4 H RBC 4.93 Hgb 14.3 Hct 42.0 Neutrophils % 80.7 H Neutrophils # 15.7 H ESR 10 Sodium 137 Potassium 3.8 Carbon Dioxide 22.6 L Anion Gap 14.2 H BUN 10 D Creatinine 0.98 Est GFR (Non-Af Amer) 87 Random Glucose 102 Lactic Acid, Venous C-Reactive Prot, Quant Procalcitonin 03/31/17 03/31/17 03/31/17 11:42 16:40 16:40 WBC RBC Hgb Hct Neutrophils % Neutrophils # ESR Sodium Potassium Carbon Dioxide Anion Gap BUN Creatinine Est GFR (Non-Af Amer) Random Glucose Lactic Acid, Venous 2.4 H* C-Reactive Prot, Quant 0.2 Procalcitonin 0.11 - Vital Signs Patient's Vital Signs:: I have reviewed the patient's vital signs. Vital Signs: Vital Signs 03/31/17 11:29 Temperature 36.7 C Pulse Rate 86 Respiratory 20 Rate Blood Pressure 122/93 O2 Sat by Pulse 99 Oximetry - CT/Ultrasound CT/Ultrasound Narrative: CT abdomen/pelvis with contrast: IMPRESSION: 1. Progression of lower abdominal/pelvic/right lower quadrant inflammatory process, currently now involving the terminal ileum as well as the sigmoid colon, with small foci of extraluminal gas suggestive of potential microperforation. The base of the cecum may also be secondarily affected. There is no definite signs of an organized abscess. There may be a linear soft tissue structure within the mesentery which may be connecting the abnormal sigmoid colonic segment and the terminal ileum. Consider possible fistula formation. Other considerations include mesenteric scarring or inflammatory phlegmon. Probably sequela of complicated sigmoid diverticulitis, but also consider acute on chronic infection versus inflammatory bowel disease (Crohn's disease). In addition, potential complicated malignancy should also be considered. 2. Appendix difficult to visualize due to inflammatory process, however no definite dilation noted. Surrounding inflammatory changes most likely secondary due to other processes as above. 3. Small amount of free fluid in the pelvis, adjacent to the cecum. There is no definite signs of an organized abscess. 4. Additional comments and details are as above. Electronically signed by Trip Lr M.D.. - Progress/Reassessment Chief Complaint: Abdominal Pain Progress:: Improved Progress Note-Subjective: 03/31/17 16:05 Patient is comfortable after Dilaudid [address] Bocanegra contacted regarding CT results. He is coming to see the patient in the department. Awaiting a call back from Dr. Miner regarding medical management of admission. 03/31/17 16:[address] Miner. Additional labs and IV Zosyn and Flagyl, as well as IV NS bolus ordered. 03/31/17 17:00 Dr. Bocanegra here to see patient. Planning to take him to the OR this evening. Patient will be admitted to the SCU preoperatively. Departure - Departure Clinical Impression: Diverticulitis of large intestine with perforation without bleeding, Sepsis Disposition: [facility] Condition: Stable
[2017-03-31] MEDS ORDERED: ONDANSETRON HCL/PF 2 MG/ML VIAL ONE (11:58)
[2017-03-31] MEDS ORDERED: HYDROmorphone HCL 1 MG/ML DISP.SYRIN ONE ×3 (11:58→14:44)
[2017-03-31 12:08] LABS: Albumin * 3.6 gm/dl (3.4-5.0); Anion Gap 14.2 mmol/L (6.8-13.8); BUN/Creatinine Ratio 10.2 (9.0-21.6); Bilirubin, Total 0.3 mg/dL (0.0-1.1); Ca. Corrected For Albumin 8.7 mg/dL (8.4-10.2); Calcium * 8.7 mg/dL (7.9-10.9); Carbon Dioxide 22.6 mmol/L (24-32.6); Potassium 3.8 mmol/L (3.4-4.6); Total Protein 7.2 gm/dL (6.2-8.2)
[2017-03-31] MEDS: HYDROmorphone HCL 1 MG/ML DISP.SYRIN IV ONE ×2 (12:13→14:49)
[2017-03-31 12:22] LABS: Urine Bilirubin Negative (NEGATIVE); Urine Ketone Negative (NEGATIVE); Urine Nitrite Negative (NEGATIVE); Urine Protein Negative (NEGATIVE); Urine Specific Gravity >=1.030 SP.GR. (1.005-1.030); Urine Urobilinogen Normal (NORMAL); Urine pH 5.5 pH (5.0-7.0)
[2017-03-31 12:35] LABS: Urine Blood 5 /ul (NEGATIVE)
[2017-03-31 12:36] LABS: Urine Appearance Clear; Urine Bacteria None Seen; Urine Color Yellow; Urine WBC 0-5 /hpf (0-5)
[2017-03-31] MEDS ORDERED: HYDROmorphone HCL 1 MG/ML DISP.SYRIN IV ONE ×2 (12:56→22:51)
[2017-03-31] MEDS ORDERED: DIATRIZOATE MEGLUMINE, SODIUM 30 ML BTL PO ONE (13:40)
[2017-03-31] MEDS ORDERED: DIATRIZOATE MEGLUMINE, SODIUM 30 ML BTL ONE (13:42)
[2017-03-31] MEDS ORDERED: ACETAMINOPHEN 500 MG TABLET PO ONE (14:46)
[2017-03-31] MEDS ORDERED: PIPERACILLIN SODIUM/TAZOBACTAM 3.375 GM in DEXTROSE 5 % IN WATER 100 ML IV ONE ×2 (16:27)
[2017-03-31] MEDS ORDERED: metroNIDAZOLE/SODIUM CHLORIDE 500 MG/100 ML BAG IV SCH ×2 (16:30→23:15)
[2017-03-31] MEDS ORDERED: NORMAL SALINE 1,000 ML IV PRN (17:14)
--- NOTE | 2017-03-31 17:33 | HP ---
Chief Complaint - Chief Complaint Date of Service: 03/31/17 Time of Service: 17:28 Chief Complaint: abdominal pain History of Present Illness: The patient is a 47-year-old male who presents with severe lower abdominal pain. He was treated earlier this spring in [place] for diverticulitis. He had reoccurrence and was admitted here twice in December for diverticulitis with microperforation. He improved and went home on po antibiotics. He subsequently got sick again and was admitted at [facility] he thinks in January. He again went home on antibiotics. His doctor advised a colonoscopy which he had in February. Apparently the next day or the day after that he began having severe abdominal pain again, however has not seen anybody for this. The pain got significantly worse yesterday. Over the course of his illness he has lost about 20 pounds. He had po contrast for a CT scan at about 3 PM. The scan shows a large amount of inflammation in the pelvis involving the sigmoid, terminal ileum, and cecum with some small areas of extraluminal gas. - Patient's Past Medical History Patient History - Medical: Arthritis, Depression, Headache, Migraines, Osteoarthritis, Other Patient History - Cardiac/Respiratory: No pertinent hx, Other - he has a bicuspid aortic valve Patient History - Cancer: No Hx of Cancer Patient History - Surgical Procedures: Colonoscopy, EGD, Other - he has had 3 knee operations for meniscus Patient History - Other: None - Family History Mother Family History - Medical: Diabetes Type 2, Other Family History - Cardiac/Respiratory: No pertinent hx Family History - Cancer: Other Father Family History - Medical: , No pertinent hx Family History - Cardiac/Respiratory: No pertinent hx Family History - Cancer: Colon - Social History Living Situations: spouse Abuse History: No History of abuse Psych History: No pertinent hx Smoking Status: Current every day smoker Cigarettes Packs Per Day: 0.5 Alcohol Use: none Drug Use: marijuana - Immunizations Immunizations Up to Date: Yes Hx Pneumococcal Vaccination: No History of Influenza Vaccine: Yes Review Of Systems (GEN) - Review of Systems Generalized/Overall Review: Present: Fever, Malaise, Fatigue EENTM: Present: No Symptoms Reported Respiratory: Present: Other - Sometimes it is difficult to take a deep breath because of the abdominal pain. Cardiac: Absent: Chest Pain, Edema, Palpitations Abdominal: Present: Other - He has had constant abdominal pain for several weeks worse since yesterday. It hurts to cough or go over bumps. He has a lot of heartburn Genitourinary: Present: Frequency, Other - He voids frequently in small amounts Musculoskeletal: Present: Neck Pain - He has ruptured disks C6-C7 with radicular pain in the left arm which is better on gabapentin Neurological: Present: Other - The radicular pain in the left arm is improved. Absent: Headache, Seizure Skin: Present: Dryness Immunizations: IMMUNIZATION HX Immunizations Up to Date Yes History of Influenza Vaccine Yes Hx Pneumococcal Vaccination No Allergies/Adverse Reactions: Allergies Allergy/AdvReac Type Severity Reaction Status Date / Time morphine Allergy Verified 03/31/17 11:34 naproxen AdvReac Mild "severe Verified 03/31/17 11:34 heartburn" Home Medications: HOME MEDICATIONS Gabapentin 900 mg PO TID 12/15/16 [Last Taken Unknown] Exam - Exam Vital Signs: Vital Signs - Last Taken Temp 37.8 C H 03/31/17 16:36 Pulse 110 H 03/31/17 16:36 Resp 16 03/31/17 16:36 BP 109/58 03/31/17 16:36 Pulse Ox 95 03/31/17 16:36 Constitutional: Present: Alert, Oriented x3, Cooperative, Moderate distress ENT Exam: Present: normal ENT inspection Eye Exam: bilateral eye: normal inspection Neck: Present: full range of motion, trachea midline Back Exam: Present: normal inspection Respiratory: Present: lungs clear, normal breath sounds, no respiratory distress Cardiovascular/Chest: Present: normal peripheral pulses, regular rate, rhythm, no murmur Peripheral Pulses: carotid (R): 4+, carotid (L): 4+, femoral (R): 4+, femoral (L ): 4+, dorsalis-pedis (R): 4+, dorsalis-pedis (L): 4+, radial (R): 4+, radial (L ): 4+ Abdomen: Present: other - Protuberant. Bowel sounds are present. 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0) K/mm3 Carbon Dioxide 22.6 L (24-32.6) mmol/L Anion Gap 14.2 H (6.8-13.8) mmol/L Lactic Acid, Venous (0.4-1.9) mmol/L ALT 18 L (19-67) U/L Urine Blood 5 H (NEGATIVE) /ul Urine RBC 5-10 H (0-5) /hpf 03/31/17 Range/Units 16:40 WBC (4.0-10.5) K/mm3 Immature Gran % (Auto) (0.001-0.429) % Immature Gran # (Auto) (0.000-0.0310) K/mm3 Neutrophils % (42-75.0) % Lymphocytes % (20-51) % Neutrophils # (1.3-6.0) K/mm3 Carbon Dioxide (24-32.6) mmol/L Anion Gap (6.8-13.8) mmol/L Lactic Acid, Venous 2.4 H* (0.4-1.9) mmol/L ALT (19-67) U/L Urine Blood (NEGATIVE) /ul Urine RBC (0-5) /hpf Laboratory Results WBC 19.4 K/mm3 (4.0-10.5) H 03/31/17 11:42 RBC 4.93 M/mm3 (4.7-6.0) 03/31/17 11:42 Hgb 14.3 gm/dL (13.5-18.0) 03/31/17 11:42 Hct 42.0 % (42.0-52.0) 03/31/17 11:42 MCV 85.2 fl (78-100) 03/31/17 11:42 MCH 29.0 pg (27-31) 03/31/17 11:42 MCHC 34.0 g/dl (32-36) 03/31/17 11:42 RDW 13.8 % (11.5-14.0) 03/31/17 11:42 Plt Count 310 K/mm3 (150-450) 03/31/17 11:42 MPV 9.1 fl (6.0-9.5) 03/31/17 11:42 Immature Gran % (Auto) 0.70 % (0.001-0.429) H 03/31/17 11:42 Immature Gran # (Auto) 0.13 K/mm3 (0.000-0.0310) H 03/31/17 11:42 Neutrophils % 80.7 % (42-75.0) H 03/31/17 11:42 Lymphocytes % 12.3 % (20-51) L 03/31/17 11:42 Monocytes % 4.5 % (0.0-9) 03/31/17 11:42 Eosinophils % 1.4 % (0.0-3.0) 03/31/17 11:42 Basophils % 0.4 % (0.0-1.0) 03/31/17 11:42 Nucleated RBC % 0.0 k/mm3 (0-1) 03/31/17 11:42 Neutrophils # 15.7 K/mm3 (1.3-6.0) H 03/31/17 11:42 Lymphocytes # 2.4 k/mm3 (1.5-3.5) 03/31/17 11:42 Monocytes # 0.9 k/mm3 (0.0-1.0) 03/31/17 11:42 Eosinophils # 0.3 k/mm3 (0.0-0.7) 03/31/17 11:42 Absolute Basophils 0.1 k/mm3 (0.0-0.1) 03/31/17 11:42 ESR 10 mm/hr (0-10) 03/31/17 11:42 Sodium 137 mmol/L (132-142) 03/31/17 11:42 Plasma Sodium 137 mmol/L (130-142) 03/31/17 11:42 Potassium 3.8 mmol/L (3.4-4.6) 03/31/17 11:42 Chloride 104 mmol/L (97-106) 03/31/17 11:42 Carbon Dioxide 22.6 mmol/L (24-32.6) L 03/31/17 11:42 Anion Gap 14.2 mmol/L (6.8-13.8) H 03/31/17 11:42 BUN 10 mg/dL (6-23) D 03/31/17 11:42 Creatinine 0.98 mg/dL (0.4-1.4) 03/31/17 11:42 Est GFR (Non-Af Amer) 87 mL/min (60-130) 03/31/17 11:42 BUN/Creatinine Ratio 10.2 (9.0-21.6) 03/31/17 11:42 Random Glucose 102 mg/dL (70-110) 03/31/17 11:42 Lactic Acid, Venous 2.4 mmol/L (0.4-1.9) H* 03/31/17 16:40 Calcium 8.7 mg/dL (7.9-10.9) 03/31/17 11:42 Calcium Adj for Albumin 8.7 mg/dL (8.4-10.2) 03/31/17 11:42 Total Bilirubin 0.3 mg/dL (0.0-1.1) 03/31/17 11:42 AST 9 U/L (0-48) 03/31/17 11:42 ALT 18 U/L (19-67) L 03/31/17 11:42 Alkaline Phosphatase 67 U/L (50-170) 03/31/17 11:42 C-Reactive Prot, Quant 0.2 mg/dL (0.0-0.9) 03/31/17 11:42 Total Protein 7.2 gm/dL (6.2-8.2) 03/31/17 11:42 Albumin 3.6 gm/dl (3.4-5.0) 03/31/17 11:42 Amylase 48 U/L (25-115) 03/31/17 11:42 Lipase 105 U/L (73-393) 03/31/17 11:42 Urine Color Yellow 03/31/17 12:08 Urine Appearance Clear 03/31/17 12:08 Urine pH 5.5 pH (5.0-7.0) 03/31/17 12:08 Ur Specific [place] >=1.030 SP.GR. (1.005-1.030) 03/31/17 12:08 Urine Protein Negative mg/dL (NEGATIVE) 03/31/17 12:08 Urine Glucose (UA) Negative mg/dL (NEGATIVE) 03/31/17 12:08 Urine Ketones Negative mg/dL (NEGATIVE) 03/31/17 12:08 Urine Blood 5 /ul (NEGATIVE) H 03/31/17 12:08 Urine Nitrate Negative (NEGATIVE) 03/31/17 12:08 Urine Bilirubin Negative mg/dl (NEGATIVE) 03/31/17 12:08 Urine Urobilinogen Normal EU/dl (NORMAL) 03/31/17 12:08 Ur Leukocyte Esterase Negative /ul (NEGATIVE) 03/31/17 12:08 Urine RBC 5-10 /hpf (0-5) H 03/31/17 12:08 Urine WBC 0-5 /hpf (0-5) 03/31/17 12:08 Ur Epithelial Cells 0-5 /hpf (0-5) 03/31/17 12:08 Urine Bacteria None seen (NONE) 03/31/17 12:08 Urine Culture Comments No culture indicated 03/31/17 12:08 Assessment/Plan - Assessment/Plan (1) Diverticulitis of large intestine with perforation without bleeding Assessment: He has had an incompletely treated diverticulitis since early this spring with possibility of perforation after colonoscopy. I discussed sigmoid colon resection with Rohit pouch and end descending colostomy. This could be done here as an open procedure or he could consider consultation at the [facility] where perhaps laparoscopy would be utilized. He prefers to stay here. Briefly discussed the operation, risks, benefits, and expected hospital course. He understands that the colostomy would ideally be temporary, however he will need to wait a long time before consideration of the anastomosis given the length of time he has had abdominal inflammation. After interactive discussion his questions were answered to his apparent satisfaction and he has given informed consent for exploratory laparotomy, sigmoid colon resection and end descending colostomy/Rohit pouch. Problem: Acute
[2017-03-31] MEDS ORDERED: NORMAL SALINE 500 ML IV ONE (18:45)
[2017-03-31] MEDS ORDERED: RINGER'S SOLUTION,LACTATED 1,000 ML IV ONE ×4 (19:00→23:00)
[2017-03-31] MEDS ORDERED: PIPERACILLIN SODIUM/TAZOBACTAM 3.375 GM in DEXTROSE 5 % IN WATER 100 ML IV SCH ×2 (20:15)
[2017-03-31] MEDS ORDERED: NALOXONE HCL 0.4 MG/ML VIAL IV PRN (22:52)
[2017-03-31] MEDS ORDERED: ONDANSETRON HCL/PF 2 MG/ML VIAL IV PRN ×2 (22:52→23:05)
[2017-03-31] MEDS ORDERED: diphenhydrAMINE HCL 50 MG/ML VIAL IV PRN ×2 (22:52→23:47)
[2017-03-31] MEDS ORDERED: HYDROmorphone HCL 2 MG/ML VIAL IV PRN (22:52)
[2017-03-31] MEDS ORDERED: PROMETHAZINE HCL 12.5 MG in DEXTROSE 5 % IN WATER 50 ML IV PRN ×2 (22:52)
[2017-03-31] MEDS ORDERED: HYDROmorphone HCL 4 MG/ML DISP.SYRIN IV ONE ×3 (22:55→23:20)
[2017-03-31] MEDS ORDERED: HYDROmorphone HCL IN 0.9% NACL 50 ML CARTRIDGE IV PRN (23:05)
[2017-03-31] MEDS ORDERED: RINGER'S SOLUTION,LACTATED 1,000 ML IV PRN (23:05)
[2017-03-31] MEDS ORDERED: PANTOPRAZOLE SODIUM 40 MG in NORMAL SALINE 100 ML IV SCH (23:15)
[2017-03-31] MEDS ORDERED: TETRACAINE/BENZOCAINE/BUTAMBEN 20 SPRAY BTL TP PRN (23:48)
--- NOTE | 2017-04-01 00:19 | CONS ---
- Reason for consultation (1) Diverticulitis of large intestine with perforation without bleeding Date of Service: 04/01/17 - at 0018 Reason for Consultation:: medical management HPI - General Date of Service: 04/01/17 - 17 Narrative: Fernandez is a 47 year old male with a PMH of perforated diverticulitis, depression, anxiety, hematuria, headaches, GERD, osteoarthritis and tobacco abuse who presented to the ER yesterday afternoon with severe abdominal pain. Patient was treated twice in December [address] [facility] for diverticulitis with microperforation. He was discharged with oral antibiotics both times. He became ill again in January 2017 and was admitted to [facility] for diverticulitis. He again went home on oral antibiotics. This doctor recommended he have a colonscopy, which he had in February. A day or two after the colonscopy, the patient developed severe abdominal pain but did not seek any treatment until yesterday as his mother was receiving a liver transplant in [place]. CT of the abdomen/pelvis showed a large amount of inflammation in the pelvis involving the sigmoid, terminal ileum, and cecum with some small areas of extralminal gas. Patient was taken to surgery last night by Dr. Bocanegra and underwent exploratory laparotomy, sigmoid colon resection and colostomy. Medicine has been consulted for medical managment of this patient while admitted. Source: family, RN/MD, RN notes reviewed, old records, other - surgery notes, H& P, ER notes Exam Limitations: clinical condition - History of Present Illness Initial Comments: abdominal pain Timing/Duration: 24 hours, getting worse Severity: severe Associated Symptoms: denies symptoms Allergies/Adverse Reactions: Allergies morphine Allergy (Verified 03/31/17 20:01) naproxen Adverse Reaction (Mild, Verified 03/31/17 11:34) "severe heartburn" Home Medications: Home Medications Medication Instructions Recorded Last Taken Gabapentin 900 mg PO TID 12/15/16 Unknown - Patient's Past Medical History Patient History - Medical: Arthritis, Depression, Headache, Migraines, Osteoarthritis, Other - has bicuspid aortic valve Patient History - Cardiac/Respiratory: No pertinent hx Patient History - Cancer: No Hx of Cancer Patient History - Surgical Procedures: Colon Resection - 03/31/17 sigmoid colon resection with colostomy by Dr Bocanegra, Colonoscopy, EGD, Other - 3 knee operation for meniscus repairs Patient History - Other: None - Family History Mother Family History - Medical: Diabetes Type 2, Other Family History - Cardiac/Respiratory: No pertinent hx Family History - Cancer: Other Father Family History - Medical: , No pertinent hx Family History - Cardiac/Respiratory: No pertinent hx Family History - Cancer: Colon - Social History Living Situations: spouse Abuse History: No History of abuse Psych History: Hx of Anxiety Smoking Status: Current every day smoker Cigarettes Packs Per Day: 0.5 Have you smoked in the past 12 months: Yes Do you dip or chew tobacco: No Alcohol Use: none Drug Use: marijuana - Immunizations Immunizations Up to Date: Yes Hx Pneumococcal Vaccination: No History of Influenza Vaccine: Yes Procedures DRAINAGE OF RIGHT LOWER LEG SKIN, EXTERNAL APPROACH (04/04/16) INSPECTION OF LEFT KNEE JOINT, PERC ENDO APPROACH (10/01/16) Medications - Medications Current Medications: Current Medications Diphenhydramine HCl (Benadryl) 25 mg IV Q4H PRN PRN Reason: Itching Stop: 04/30/17 23:48 Last Admin: 03/31/17 23:57 Dose: 25 mg Hydromorphone/Sodium Chloride (Dilaudid 0.2 Mg/Ml [employer] Hr Generalist Cassette) 0 ml IV PRN PRN ; Protocol PRN Reason: Severe Pain Stop: 04/30/17 23:06 Last Admin: 04/01/17 00:08 Dose: 50 ml Pantoprazole Sodium 40 mg/ (Sodium Chloride) 100 mls @ 400 mls/hr IV Q24H ISELA Stop: 04/30/17 23:16 Last Admin: 03/31/17 23:59 Dose: 400 mls/hr Review of Systems - Review of Systems Generalized/Overall Review: Present: No Symptoms Reported - unable to obtain a ROS due to patient's clinical condition. Patient is currently post op from surgery and is very drowsy. Does state that his nose itches but is unable to answer any other questions at this time. Physical Examination - Exam Vital Signs: Vital Signs - Last Taken Temp 36.8 C 03/31/17 23:30 Pulse 74 03/31/17 23:30 Resp 18 03/31/17 23:30 BP 117/72 03/31/17 23:30 Pulse Ox 97 03/31/17 23:30 O2 Oxygen Delivery Method Nasal Cannula Constitutional: Present: Well developed, Lethargic, Other - moans at times then easily falls back asleep ENT Exam: Present: hearing grossly normal Eye Exam: bilateral eye: normal inspection Neck: Present: supple Breasts: Present: Exam deferred Respiratory: Present: no respiratory distress, no accessory muscle use, decreased breath sounds Cardiovascular/Chest: Present: normal peripheral pulses, regular rate, rhythm, no chest tenderness Peripheral Pulses: carotid (R): 2+, carotid (L): 2+, dorsalis-pedis (R): 2+, dorsalis-pedis (L): 2+, radial (R): 2+, radial (L): 2+ Abdomen: Present: tender, guarding, no bowel sounds /Rectal: Present: Exam deferred Extremity: Present: non-tender, normal inspection, no calf tenderness Skin Exam: Present: warm/dry, no cyanosis, pallor - Results and Findings: Lab/Microbiology results last 24 hrs: Laboratory Tests 03/31/17 03/31/17 03/31/17 11:42 11:42 16:40 WBC 19.4 H Hgb 14.3 Hct 42.0 Plt Count 310 Neutrophils % 80.7 H Plasma Sodium 137 Potassium 3.8 Chloride 104 Carbon Dioxide 22.6 L BUN 10 D Creatinine 0.98 Lactic Acid, Venous Amylase 48 Lipase 105 Procalcitonin 0.11 03/31/17 16:40 WBC Hgb Hct Plt Count Neutrophils % Plasma Sodium Potassium Chloride Carbon Dioxide BUN Creatinine Lactic Acid, Venous 2.4 H* Amylase Lipase Procalcitonin - Assessments/Findings (1) Diverticulitis of large intestine with perforation without bleeding Diagnosis(s): Diverticulitis of the large intestine with perforation without bleeding - post exploratory laparotomy, sigmoid colon resection and colostomy by Dr Bocanegra - appreciate his help - IV abx for intra-abdominal infection - started on 03/31/17 - Flagyl 500 mg iv q 6 hours - Day #2 - Zosyn 3.375 mg iv q 6 ours - Day #2 - awaiting intra-abdominal fluid sample culture - awaiting blood cultures - NG tube to LIS per Dr Bocanegra - NPO - flush with 30 ml water q shift - Protonix 40 mg IV daily per Dr. 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 - Site of infection - acute abdominal infection - SIRS criteria present - Temp >38.3 (pt Tmax 38.5) - tachycardia > 90 bpm (pt HR charted at 110 bpm) - Leukocytosis with WBC >12.0 (pt wbc 19.4) - Organ dysfunction criteria present - Lactate >2 (pt lactic acid 2.4) - unable to do 3 hour repeat lactic acid as patient was in surgery - pt given sepsis fluid bolus in ER. - awaiting final blood cultures - Antibiotics as listed above - Post op IV fluids per Dr Bocanegra - recheck labs in am. GERD - IV protonix per Dr Bocanegra Stable Medical Conditions - Anxiety and depression - not currently treated with medication - tobacco abuse - osteoarthritis Code Status: Full Code VTE: no lovenox due to risk of post op bleeding/ SCDs while in bed GI proph: IV protonix Problem: Acute (2) Sepsis Problem: Acute Qualifiers: Sepsis type: sepsis due to unspecified organism Qualified Code(s): A41.9 - Sepsis, unspecified organism (3) GERD (gastroesophageal reflux disease) Problem: Chronic Qualifiers: Esophagitis presence: esophagitis presence not specified Qualified Code(s) : K21.9 - Gastro-esophageal reflux disease without esophagitis (4) Depression Problem: Chronic Qualifiers: Depression Type: unspecified Qualified Code(s): F32.9 - Major depressive disorder, single episode, unspecified (5) Anxiety Problem: Chronic (6) Tobacco abuse Problem: Chronic
[2017-04-01] MEDS: PIPERACILLIN SODIUM/TAZOBACTAM 3.375 GM in DEXTROSE 5 % IN WATER 100 ML IV SCH ×8 (00:21→16:59)
[2017-04-01] MEDS: metroNIDAZOLE/SODIUM CHLORIDE 500 MG/100 ML BAG IV SCH ×2 (00:36→07:39)
[2017-04-01] MEDS ORDERED: FAMOTIDINE 20 MG in DEXTROSE 5 % IN WATER 100 ML IV ONE ×2 (01:48)
--- NOTE | 2017-04-01 01:58 | PN ---
Progess Note - Interim Narrative: 04/01/17 01:56 pt continues to c/o itching despite iv benadryl. i have taken care of patient in the past where he has received iv dilaudid without this side effect. ordered 1 time dose of pepcid iv for its H2 simon properties to see if this helps his itching. SBP currently 104-120 - notified SCU RN to notify me with SBP less than 100. ADAMA Lam.
[2017-04-01 05:51] LABS: Hematocrit 38.6 % (42.0-52.0); Hemoglobin 12.9 gm/dL (13.5-18.0); Mean Cell Volume 86.9 fl (78-100); Mean Corpuscular Hemoglobin 29.1 pg (27-31); Mean Corpuscular Hgb Conc 33.4 g/dl (32-36); Mean Platelet Volume 9.3 fl (6.0-9.5); Neutrophil % 84.8 % (42-75.0); Platelet Count 271 K/mm3 (150-450); Red Blood Count 4.44 M/mm3 (4.7-6.0); Red Cell Distribution Width 14.1 % (11.5-14.0); White Blood Count 23.5 K/mm3 (4.0-10.5)
[2017-04-01 06:00] LABS: Anion Gap 10.3 mmol/L (6.8-13.8); BUN/Creatinine Ratio 6.3 (9.0-21.6); Calcium * 7.9 mg/dL (7.9-10.9); Carbon Dioxide 28.8 mmol/L (24-32.6); Estimated Creat Clear 98.2; Potassium 4.1 mmol/L (3.4-4.6)
[2017-04-01] MEDS ORDERED: RINGER'S SOLUTION,LACTATED 1,000 ML IV ONE (06:20)
[2017-04-01] MEDS ORDERED: HYDROmorphone HCL 1 MG/ML DISP.SYRIN IV ONE (06:51)
--- NOTE | 2017-04-01 07:46 | OR ---
Operative Report - Dictated Report Narrative: OPERATIVE REPORT DATE OF OPERATION: 03/31/2017 PREOPERATIVE DIAGNOSIS: Sigmoid diverticulitis with perforation POSTOPERATIVE DIAGNOSIS: Sigmoid diverticulitis with perforation and peritonitis OPERATION: Exploratory laparotomy with sigmoid colon resection and creation of end descending colostomy (Rohit procedure) SURGEON: Michela Bocanegra MD ANESTHESIA: Gen. endotracheal Harshad Poole CRNA INDICATIONS FOR PROCEDURE: Patient is a 47-year-old male with multiple episodes of sigmoid diverticulitis this spring. He presents with more severe abdominal pain and CT scan evidence of perforation and inflammation throughout the pelvis. FINDINGS: Sigmoid diverticulitis (chronic established) with perforation. Contiguous inflammation of the apex of the cecum. Possible distal urethral stricture NARRATIVE OF PROCEDURE: The patient was identified preoperatively and prior to the administration of anesthetic a multidisciplinary timeout was observed. The patient was placed supine, SCDs were applied, the patient is currently on therapeutic antibiotics. Gen. endotracheal anesthetic was administered. A Lopez catheter was placed (16 [place]ian coud catheter). The patient's abdomen was prepped with Betadine solution and isolated with 4 sterile towels. The remainder the patient was covered with a sterile disposable drape. A low midline surgical incision was made skirting to the right of the umbilicus. Dissection was carried to subcutaneous tissue with electrocautery until the fascia of the linea alba was encountered. This was incised. The peritoneum was elevated and incised to allow entry into the abdomen under direct vision. There was a large amount of cloudy yellow fluid present which was suctioned and cultured. A forefinger was inserted and the incision was enlarged. The abdomen was then visually and manually explored. There was a firm mass in the pelvis of chronically inflamed tissue. The upper abdomen was free. The greater omentum appeared normal as did the small intestine. A nasogastric tube was placed and proper positioning confirmed. The cecum was inspected and found to be densely adherent to the inflammatory mass however it could be finger fractured free. There was induration of the cecum however the 1 cm area of inflammation/attachment was gas and liquid tight. The appendix appeared normal. The cecum and small bowel were then retracted superiorly and a Bookwalter self-retaining retractor placed. The sigmoid colon was traced distally and gradually freed from the surrounding pelvic structures down to the level just above the peritoneal reflection. There was intense inflammation. The area was irrigated with bacitracin-containing saline. Decision was made to divide the colon proximally and liberate the sigmoid colon proximal to distal. The descending colon was mobilized by division of the lateral peritoneal attachment. A LEONARDO was placed across the descending colon which was divided. The descending colon mesentery was divided with the LigaSure device. Next using the LigaSure the sigmoid colon mesentery was serially divided distally, staying close to the bowel. Gradually the segment was pedicled on the peritoneal reflection where intense inflammation precluded distal mobilization of the bowel. The bowel was then transected at this level with a LEONARDO stapling device and the specimen was passed to the back table. The pelvis was then thoroughly irrigated with bacitracin-containing saline and inspected for hemostasis which appeared complete. A site was then chosen on the left lateral abdomen for colostomy creation. A pyramid lake of skin was removed sharply with a scalpel. A plug of subcutaneous tissue was removed with electrocautery down to the fascia of the oblique muscles. Offset cruciate incisions were made in the fascia and the muscles were split to allow a 2 fingerbreadth opening into the abdomen. The end of the descending colon was then passed onto the abdominal wall. The mesentery was checked to ensure lack of tension and the abdominal wall opening was sufficient to admit the colon without allowing either vascular compromise or herniation of abdominal contents. The colostomy was secured to the fascia with several interrupted sutures of 2-0 chromic. After receiving a correct sponge needle and instrument count attention was turned to closing the abdomen. The small bowel was arranged anatomically. The greater omentum was placed anteriorly and placed along the inflammation at the apex of the cecum as well as over the apex of the Rohit pouch. The fascia and peritoneum were closed with a running suture of #1 PDS. Several additional interrupted sutures of #1 Vicryl were placed along the incision as well. Subcutaneous tissue was irrigated with saline. Attention was then turned to maturing the colostomy. The staple line was excised with cautery. The mucosa appeared healthy. The colostomy was secured to the subcutaneous tissue and skin with interrupted sutures of 2-0 chromic. The mucosa was then everted to the skin edges with interrupted sutures of 3-0 chromic. The colostomy was tested with the forefinger and found to be of good caliber with no angulation or constriction. A colostomy appliance was fashioned and applied. The midline wound was packed with 2 inch iodoform gauze and dressed with 4 x 4 and Medipore tape. The operative procedure was terminated at this point. The patient tolerated the anesthetic and procedure well without complication. The sigmoid colon was submitted to pathology. The patient received 2300 mL of IV fluids. 800 mL of urine was produced during the case. Estimated blood loss was 50 mL or less. The patient was transferred to the recovery room awake extubated and in stable condition. Reviewed and electronically signed
[2017-04-01] MEDS ORDERED: PROMETHAZINE HCL 12.5 MG in DEXTROSE 5 % IN WATER 50 ML IV PRN ×2 (11:59)
[2017-04-01] MEDS ORDERED: diphenhydrAMINE HCL 50 MG/ML VIAL IV PRN ×2 (11:59)
[2017-04-01] MEDS ORDERED: NALOXONE HCL 1 MG/1 ML SYRG IV PRN (11:59)
[2017-04-01] MEDS: RINGER'S SOLUTION,LACTATED 1,000 ML IV PRN (16:57)
--- NOTE | 2017-04-01 18:17 | PN ---
Dictated Progress Note - Date and Time Seen: Date: 04/01/17 Time: 18:12 - 3rd visit - Progress Note Narrative: Vital Signs - Last Taken Temp 37.6 C H 04/01/17 15:06 Pulse 90 04/01/17 15:06 Resp 18 04/01/17 15:06 BP 118/71 04/01/17 15:06 Pulse Ox 93 04/01/17 15:06 Abnormal/Pending Laboratory Last 24 HRS 04/01/17 04/01/17 04/01/17 05:41 05:41 05:41 WBC 23.5 H D RBC 4.44 L Hgb 12.9 L Hct 38.6 L RDW 14.1 H Immature Gran % (Auto) 0.90 H Immature Gran # (Auto) 0.21 H Neutrophils % 84.8 H Lymphocytes % 8.9 L Neutrophils # 20.0 H Monocytes # 1.2 H BUN/Creatinine Ratio 6.3 L Random Glucose 111 H Procalcitonin 0.84 H Culture 03/31/17 19:30 Body Fluid Culture - Preliminary Peritoneal Fluid No Growth POD #1 Rohit procedure for perforated sigmoid diverticulitis Alert, pain controlled, VS normal, has been OOB once. Good U/O. Minimal via NG , no colostomy activity. Lungs clear, decreased excursion due to pain. Dressing dry, stoma healthy Will D/C baker, D/C NG trial liquids and add po Percocet for more consistent analgesia keep DOCENT COORDINATOR for breakthrough. Need to encourage OOB. Increase in WBC expected due to surgery, will continue antibiotic for peritoneal process Will change dressing tomorrow
[2017-04-01] MEDS: oxyCODONE HCL/ACETAMINOPHEN 1 TAB TABLET PO PRN (19:57)
[2017-04-02] MEDS: PIPERACILLIN SODIUM/TAZOBACTAM 3.375 GM in DEXTROSE 5 % IN WATER 100 ML IV SCH ×10 (00:30→22:01)
[2017-04-02] MEDS: RINGER'S SOLUTION,LACTATED 1,000 ML IV PRN ×2 (00:45→10:00)
[2017-04-02] MEDS: oxyCODONE HCL/ACETAMINOPHEN 1 TAB TABLET PO PRN ×3 (03:27→16:46)
--- NOTE | 2017-04-02 04:17 | PN ---
Subjective - Date and Time Seen Date: 04/02/17 Time: 04:11 Subjective Narrative: c/o abdominal pain but denies need for additional pain medications. pt happy to have NG tube and baker catheter out. Objective - Review of Systems Generalized/Overall Review: Reports: No Symptoms Reported EENTM: Reports: No Symptoms Reported Respiratory: Reports: No Symptoms Reported Cardiac: Reports: No Symptoms Reported Abdominal: Reports: Abdominal Pain. Denies: Nausea, Vomiting Genitourinary Symptoms: Reports: No Symptoms Reported Musculoskeletal Complaints: Reports: No Symptoms Reported Neurological: Reports: No Symptoms Reported Skin: Reports: No Symptoms Reported Endocrine: Reports: No Symptoms Reported Misc: All systems neg except as marked - Vitals Vitals: Last Vital Signs Temp 37.4 C 04/02/17 03:30 Pulse 97 04/02/17 03:30 Resp 20 04/02/17 03:30 BP 122/72 04/02/17 03:30 Pulse Ox 99 04/02/17 03:30 - Abnormal Lab Findings Abnormal Lab Findings: Abnormal Lab Results 04/01/17 04/01/17 04/01/17 Range/Units 05:41 05:41 05:41 WBC 23.5 H D (4.0-10.5) K/mm3 RBC 4.44 L (4.7-6.0) M/mm3 Hgb 12.9 L (13.5-18.0) gm/dL Hct 38.6 L (42.0-52.0) % RDW 14.1 H (11.5-14.0) % Immature Gran % (Auto) 0.90 H (0.001-0.429) % Immature Gran # (Auto) 0.21 H (0.000-0.0310) K/mm3 Neutrophils % 84.8 H (42-75.0) % Lymphocytes % 8.9 L (20-51) % Neutrophils # 20.0 H (1.3-6.0) K/mm3 Monocytes # 1.2 H (0.0-1.0) k/mm3 BUN/Creatinine Ratio 6.3 L (9.0-21.6) Random Glucose 111 H (70-110) mg/dL Procalcitonin 0.84 H (0.05-0.50) ng/mL - Exam Constitutional: Present: Alert, Oriented x3, Cooperative, No distress ENT Exam: Present: hearing grossly normal Neck: Present: full range of motion, supple Breasts: Present: Exam deferred Respiratory: Present: normal breath sounds, no respiratory distress, no accessory muscle use Cardiovascular/Chest: Present: normal peripheral pulses, regular rate, rhythm, no chest tenderness Abdomen: Present: soft, tender, guarding Extremity: Present: non-tender, normal inspection, no calf tenderness Skin Exam: Present: normal color, warm/dry, no cyanosis Cauti Physician Documentation - Urinary Catheter Management Urethral (Baker) Urethral Indwelling: No Date of Insertion: 03/31/17 Time of Insertion: 19:00 Date of Removal: 04/01/17 Time of Removal: 19:40 Assessment/Plan Plan Narrative: Diverticulitis of the large intestine with perforation without bleeding - post exploratory laparotomy, sigmoid colon resection and colostomy by Dr Bocanegra - appreciate his help - IV abx for intra-abdominal infection - started on 03/31/17 - Flagyl 500 mg iv q 6 hours - Day #3 - Zosyn 3.375 mg iv q 6 ours - Day #3 - awaiting intra-abdominal fluid sample culture - no growth so far - awaiting blood cultures - no growth so far - Protonix 40 mg IV daily per Dr. Bocanegra - encourage good pain management. - am labs pending Sepsis - Initial criteria below: - meets criteria for sepsis but NOT severe sepsis. - Site of infection - acute abdominal infection - SIRS criteria present - Temp >38.3 (pt Tmax 38.5) - tachycardia > 90 bpm (pt HR charted at 110 bpm) - Leukocytosis with WBC >12.0 (pt wbc 19.4) - Organ dysfunction criteria present - Lactate >2 (pt lactic acid 2.4) - unable to do 3 hour repeat lactic acid as patient was in surgery - pt given sepsis fluid bolus in ER. - Tmax overnight 38.2 - blood pressure improved since 6 am yesterday, SBP has been over 100 all day. - continue IV abx and IV fluids - awaiting final cultures - Antibiotics as listed above - am labs pending GERD - IV protonix per Dr Bocanegra Stable Medical Conditions - Anxiety and depression - not currently treated with medication - tobacco abuse - osteoarthritis Code Status: Full Code VTE: no lovenox due to risk of post op bleeding/ SCDs while in bed GI proph: IV protonix - Problems/Diagnosis (1) Diverticulitis of large intestine with perforation without bleeding Problem: Acute (2) Sepsis Problem: Acute Qualifiers: Sepsis type: sepsis due to unspecified organism Qualified Code(s): A41.9 - Sepsis, unspecified organism (3) GERD (gastroesophageal reflux disease) Problem: Chronic Qualifiers: Esophagitis presence: esophagitis presence not specified Qualified Code(s) : K21.9 - Gastro-esophageal reflux disease without esophagitis (4) Depression Problem: Chronic Qualifiers: Depression Type: unspecified Qualified Code(s): F32.9 - Major depressive disorder, single episode, unspecified (5) Anxiety Problem: Chronic (6) Tobacco abuse Problem: Chronic
[2017-04-02 05:47] LABS: Hematocrit 36.2 % (42.0-52.0); Hemoglobin 12.1 gm/dL (13.5-18.0); Mean Cell Volume 86.6 fl (78-100); Mean Corpuscular Hemoglobin 28.9 pg (27-31); Mean Corpuscular Hgb Conc 33.4 g/dl (32-36); Mean Platelet Volume 9.5 fl (6.0-9.5); Neutrophil # 15.8 K/mm3 (1.3-6.0); Neutrophil % 85.1 % (42-75.0); Platelet Count 244 K/mm3 (150-450); Red Blood Count 4.18 M/mm3 (4.7-6.0); Red Cell Distribution Width 14.1 % (11.5-14.0); White Blood Count 18.5 K/mm3 (4.0-10.5)
[2017-04-02 05:52] LABS: Anion Gap 10.2 mmol/L (6.8-13.8); BUN/Creatinine Ratio 6.1 (9.0-21.6); Calcium * 8.1 mg/dL (7.9-10.9); Carbon Dioxide 28.1 mmol/L (24-32.6); Estimated Creat Clear 95.2; Potassium 3.3 mmol/L (3.4-4.6)
[2017-04-02] MEDS ORDERED: POTASSIUM CHLORIDE 20 MEQ TABLET.SA PO ONE (06:25)
[2017-04-02] MEDS ORDERED: POTASSIUM CHLORIDE 100 ML IV ONE (07:23)
[2017-04-02] MEDS ORDERED: BISACODYL 5 MG TABLET.DR PO ONE (07:24)
[2017-04-02] MEDS: ONDANSETRON HCL/PF 2 MG/ML VIAL IV PRN (10:20)
[2017-04-02] MEDS: HYDROmorphone HCL IN 0.9% NACL 50 ML CARTRIDGE IV PRN (11:34)
[2017-04-02] MEDS ORDERED: CALCIUM CARBONATE 500 MG TAB.CHEW PO PRN (17:12)
--- NOTE | 2017-04-02 17:15 | PN ---
Dictated Progress Note - Date and Time Seen: Date: 04/02/17 Time: 17:13 - 2nd visit - Progress Note Narrative: Vital Signs - Last Taken Temp 37 C 04/02/17 15:15 Pulse 87 04/02/17 15:15 Resp 18 04/02/17 15:15 BP 112/74 04/02/17 15:15 Pulse Ox 94 04/02/17 15:15 Abnormal/Pending Laboratory Last 24 HRS 04/02/17 04/02/17 05:33 05:33 WBC 18.5 H D RBC 4.18 L Hgb 12.1 L Hct 36.2 L RDW 14.1 H Immature Gran % (Auto) 0.80 H Immature Gran # (Auto) 0.14 H Neutrophils % 85.1 H Lymphocytes % 7.4 L Neutrophils # 15.8 H Lymphocytes # 1.4 L Monocytes # 1.1 H Potassium 3.3 L BUN/Creatinine Ratio 6.1 L Random Glucose 128 H Culture 03/31/17 19:30 Body Fluid Culture - Preliminary Peritoneal Fluid No Growth POD#2 Rohit procedure for perforated diverticulitis (path back today and confirms) VS normal. 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 Hurts to deep breathe but mobilized material with use of blanket to help splint and says that worked best. Midline incision dressing changed/iodoform replaced----clean with start of granulation. some stoma edema and "colostomy sweat" in bag but no gas or stool. He can feel bowel activity but is having heartburn (had NG). Ambulated in [place]--needs to go again. Voided without baker. K+ was low. Impression: Good progress, is as expected Plan: Was given extra K+. Add TUMS prn. Needs to cough more and walk. Only liquids until flattus.
[2017-04-03] MEDS: oxyCODONE HCL/ACETAMINOPHEN 1 TAB TABLET PO PRN ×3 (00:16→19:39)
[2017-04-03] MEDS: ONDANSETRON HCL/PF 2 MG/ML VIAL IV PRN (00:21)
[2017-04-03] MEDS: PIPERACILLIN SODIUM/TAZOBACTAM 3.375 GM in DEXTROSE 5 % IN WATER 100 ML IV SCH ×6 (04:18→22:02)
[2017-04-03 06:10] LABS: Hematocrit 39.4 % (42.0-52.0); Hemoglobin 13.2 gm/dL (13.5-18.0); Mean Cell Volume 85.8 fl (78-100); Mean Corpuscular Hemoglobin 28.8 pg (27-31); Mean Corpuscular Hgb Conc 33.5 g/dl (32-36); Mean Platelet Volume 9.5 fl (6.0-9.5); Neutrophil # 14.7 K/mm3 (1.3-6.0); Neutrophil % 84.5 % (42-75.0); Platelet Count 280 K/mm3 (150-450); Red Blood Count 4.59 M/mm3 (4.7-6.0); Red Cell Distribution Width 13.7 % (11.5-14.0); White Blood Count 17.4 K/mm3 (4.0-10.5)
[2017-04-03 06:24] LABS: Anion Gap 13.5 mmol/L (6.8-13.8); BUN/Creatinine Ratio 6.7 (9.0-21.6); Calcium * 8.7 mg/dL (7.9-10.9); Estimated Creat Clear 105.9; Potassium 3.5 mmol/L (3.4-4.6)
[2017-04-03] MEDS: PANTOPRAZOLE SODIUM 40 MG TABLET.EC PO SCH (07:30)
[2017-04-03 11:12] LABS: Magnesium 1.9 mg/dL (1.2-2.8); Phosphorus 3.1 mg/dL (2.2-4.2)
[2017-04-03] MEDS: POTASSIUM CHLORIDE IV SCH ×2 (11:38→19:38)
[2017-04-03] MEDS: DEXTROSE 5% IV SCH ×2 (11:38→19:38)
[2017-04-03] MEDS: NORMAL SALINE IV SCH ×2 (11:38→19:38)
--- NOTE | 2017-04-03 15:54 | PN ---
Subjective - Date and Time Seen Date: 04/03/17 Time: 15:54 Subjective Narrative: C/O heartburn since yesterday- occasionally so severe that he almost threw up; had been on pantoprazole in the past. Has not been walking much. Objective - Review of Systems Respiratory: Reports: Cough Abdominal: Reports: Nausea, Abdominal Pain, Other - Heartburn - Vitals Vitals: Vital Signs Temp 36.8 C 04/03/17 14:00 Pulse 82 04/03/17 14:00 Resp 16 04/03/17 14:00 BP 159/104 04/03/17 14:00 Pulse Ox 96 04/03/17 14:00 - Abnormal Lab Findings Abnormal Lab Findings: Laboratory Tests 04/03/17 05:15 WBC 17.4 H Hgb 13.2 L Hct 39.4 L Plt Count 280 04/03/17 05:15 Plasma Sodium 137 Potassium 3.5 Chloride 98 Carbon Dioxide 29.0 BUN 6 Creatinine 0.89 Est GFR (Non-Af Amer) 97 Random Glucose 109 Phosphorus 3.1 Magnesium 1.9 - Exam Constitutional: Present: Young - looks uncomfortable; alert and oriented. ENT Exam: Present: hearing grossly normal, moist mucous membranes Neck: Present: lymphadenopathy (L) Respiratory: Present: normal breath sounds - with occassional rhonchi Cardiovascular/Chest: Present: regular rate, rhythm. Absent: tachycardia Abdomen: Present: Normal bowel sounds, soft - colostomy on the LT side abdomen Skin Exam: Present: normal color, warm/dry Cauti Physician Documentation - Urinary Catheter Management Urethral (Lopez) Urethral Indwelling: No Date of Insertion: 03/31/17 Time of Insertion: 19:00 Date of Removal: 04/01/17 Time of Removal: 19:40 Assessment/Plan Plan Narrative: 1. Explorative laparotomy with sigmoid colon resection and creation of end descending colostomy[Rohit procedure]: POD #3. On piperacillin and tazobactam 3.375 g IV Q8H. Clear liquids till formation of stool thro' colostomy. Check Mg, PO4 levels. Encourage patient to ambulate several times a day, up in chair for meals etc. 2. GERD: Start pantoprazole 40 mg PO half hour before breakfast. GERD precautions. 3. Elevated BP readings w/o DX of HTN: Patient currently asymptomatic. Continue to monitor. If elevated, may require treatment.
--- NOTE | 2017-04-03 17:24 | PN ---
Dictated Progress Note - Date and Time Seen: Date: 04/03/17 Time: 17:21 - 2nd visit - Progress Note Narrative: Vital Signs - Last Taken Temp 36.8 C 04/03/17 14:00 Pulse 82 04/03/17 14:00 Resp 16 04/03/17 14:00 BP 159/104 04/03/17 14:00 Pulse Ox 96 04/03/17 14:00 Abnormal/Pending Laboratory Last 24 HRS 04/03/17 04/03/17 05:15 05:15 WBC 17.4 H RBC 4.59 L Hgb 13.2 L Hct 39.4 L Immature Gran % (Auto) 0.70 H Immature Gran # (Auto) 0.13 H Neutrophils % 84.5 H Lymphocytes % 8.0 L Neutrophils # 14.7 H Lymphocytes # 1.4 L BUN/Creatinine Ratio 6.7 L Culture 03/31/17 19:30 Body Fluid Culture - Final Peritoneal Fluid No Growth POD #3 s/p Rohit procedure for perforated diverticulitis He refused to get up last night and this morning, however he walked twice later and states he feels much better. He had some tachycardia last night but his by mouth intake was poor so IV fluids were started. He has less heartburn when he sits up. He has not passed any gas from the colostomy. The midline wound dressing was changed and 1/2"AMD packing used--wound is clean. Colostomy appears healthy. Impression: Some progress although no return of bowel function. Recommendation: Would continue clear liquids only until evidence of return of bowel function. Encourage ambulation. Apparently he has been contacted and will have some colostomy teaching tomorrow.
[2017-04-03] MEDS ORDERED: LISINOPRIL 10 MG TABLET PO SCH (21:00)
[2017-04-04] MEDS: POTASSIUM CHLORIDE IV SCH ×3 (04:00→21:21)
[2017-04-04] MEDS: DEXTROSE 5% IV SCH ×3 (04:00→21:21)
[2017-04-04] MEDS: NORMAL SALINE IV SCH ×3 (04:00→21:21)
[2017-04-04] MEDS: PIPERACILLIN SODIUM/TAZOBACTAM 3.375 GM in DEXTROSE 5 % IN WATER 100 ML IV SCH ×6 (05:10→21:38)
[2017-04-04] MEDS: PANTOPRAZOLE SODIUM 40 MG TABLET.EC PO SCH (06:45)
[2017-04-04] MEDS: oxyCODONE HCL/ACETAMINOPHEN 1 TAB TABLET PO PRN ×2 (09:23→18:41)
--- NOTE | 2017-04-04 12:43 | PN ---
Subjective - Date and Time Seen Date: 04/04/17 Time: 12:42 Subjective Narrative: feels better, walking more, has not yet passed gas. was started on lisinopril 5 mg due to high BP yesterdsay. C/o less reflux. Objective - Review of Systems Respiratory: Denies: Cough, Shortness of Breath Cardiac: Denies: Chest Pain, Edema Abdominal: Reports: Abdominal Pain, Constipation - Vitals Vitals: Vital Signs Temp 37.1 C 04/04/17 10:00 Pulse 87 04/04/17 10:00 Resp 18 04/04/17 10:00 BP 110/75 04/04/17 10:00 Pulse Ox 97 04/04/17 10:00 - Exam Constitutional: Present: Young - sitting up in chair. ENT Exam: Present: hearing grossly normal, moist mucous membranes Neck: Present: normal inspection, trachea midline Respiratory: Present: normal breath sounds. Absent: no accessory muscle use Cardiovascular/Chest: Present: regular rate, rhythm. Absent: tachycardia Abdomen: Present: Normal bowel sounds, soft - colostostomy LT side of abdomen with mucous and no stool Extremity: Present: normal range of motion Skin Exam: Present: normal color, warm/dry Cauti Physician Documentation - Urinary Catheter Management Urethral (Lopez) Urethral Indwelling: No Date of Insertion: 03/31/17 Time of Insertion: 19:00 Date of Removal: 04/01/17 Time of Removal: 19:40 Assessment/Plan Plan Narrative: 1. Explorative laparotomy with sigmoid colon resection and creation of end descending colostomy[Rohit procedure]: POD #4 On piperacillin and tazobactam 3.375 g IV Q8H. Clear liquids till formation of stool thro' colostomy. Mg, PO4 levels were checked on 04/03/17 and were normal. Encourage patient to ambulate several times a day, up in chair for meals etc. 2. GERD: Start pantoprazole 40 mg PO half hour before breakfast. GERD precautions. 3. Elevated BP. Patient currently asymptomatic. Started on Lisinopril 5 mg PO HS on 04/03/17 , will decrease to 2.5 mg PO HS from 04/04/17.
[2017-04-04] MEDS: HYDROmorphone HCL IN 0.9% NACL 50 ML CARTRIDGE IV PRN (13:25)
[2017-04-04] MEDS: LISINOPRIL 5 MG TABLET PO SCH (21:37)
[2017-04-05] MEDS: oxyCODONE HCL/ACETAMINOPHEN 1 TAB TABLET PO PRN ×2 (04:30→17:34)
[2017-04-05] MEDS: NORMAL SALINE IV SCH ×2 (04:43→13:44)
[2017-04-05] MEDS: DEXTROSE 5% IV SCH ×2 (04:43→13:44)
[2017-04-05] MEDS: POTASSIUM CHLORIDE IV SCH ×2 (04:43→13:44)
[2017-04-05] MEDS: PIPERACILLIN SODIUM/TAZOBACTAM 3.375 GM in DEXTROSE 5 % IN WATER 100 ML IV SCH ×6 (08:07→17:30)
[2017-04-05] MEDS: PANTOPRAZOLE SODIUM 40 MG TABLET.EC PO SCH (08:13)
--- NOTE | 2017-04-05 19:56 | PN ---
Subjective - Date and Time Seen Date: 04/05/17 Time: 21:55 Subjective Narrative: doing well. abdominal pain controlled. up walking several times today. Objective - Review of Systems Generalized/Overall Review: Reports: No Symptoms Reported EENTM: Reports: No Symptoms Reported Respiratory: Reports: No Symptoms Reported Cardiac: Reports: No Symptoms Reported Abdominal: Reports: Abdominal Pain Genitourinary Symptoms: Reports: No Symptoms Reported Musculoskeletal Complaints: Reports: No Symptoms Reported Neurological: Reports: No Symptoms Reported Skin: Reports: No Symptoms Reported Endocrine: Reports: No Symptoms Reported Misc: All systems neg except as marked - Vitals Vitals: Last Vital Signs Temp 36.4 C L 04/05/17 19:17 Pulse 60 04/05/17 19:17 Resp 16 04/05/17 19:17 BP 144/79 04/05/17 19:17 Pulse Ox 96 04/05/17 19:17 - Exam Constitutional: Present: Alert, Oriented x3, Cooperative, No distress ENT Exam: Present: hearing grossly normal Neck: Present: full range of motion, supple Breasts: Present: Exam deferred Respiratory: Present: normal breath sounds, no respiratory distress, no accessory muscle use Cardiovascular/Chest: Present: normal peripheral pulses, regular rate, rhythm, no chest tenderness Abdomen: Present: soft, nondistended, tender. Absent: guarding /Rectal: Present: Exam deferred Extremity: Present: non-tender, normal inspection, no calf tenderness Skin Exam: Present: normal color, warm/dry, no cyanosis Cauti Physician Documentation - Urinary Catheter Management Urethral (Lopez) Urethral Indwelling: No Date of Insertion: 03/31/17 Time of Insertion: 19:00 Date of Removal: 04/01/17 Time of Removal: 19:40 Assessment/Plan Plan Narrative: 1. Explorative laparotomy with sigmoid colon resection and creation of end descending colostomy[Rohit procedure]: POD #5 On piperacillin and tazobactam 3.375 g IV Q8H. have BM today through colostomy. Mg, PO4 levels were checked on 04/03/17 and were normal. encourage ambulation. encourage pain management. 2. GERD: on protonix 40 mg po daily. 3. Elevated BP. no s/s. on lisinopril 5 mg daily. check labs in am. - Problems/Diagnosis (1) Diverticulitis of large intestine with perforation without bleeding Problem: Acute (2) Sepsis Problem: Acute Qualifiers: Sepsis type: sepsis due to unspecified organism Qualified Code(s): A41.9 - Sepsis, unspecified organism (3) GERD (gastroesophageal reflux disease) Problem: Chronic Qualifiers: Esophagitis presence: esophagitis presence not specified Qualified Code(s) : K21.9 - Gastro-esophageal reflux disease without esophagitis (4) Depression Problem: Chronic Qualifiers: Depression Type: unspecified Qualified Code(s): F32.9 - Major depressive disorder, single episode, unspecified (5) Anxiety Problem: Chronic (6) Tobacco abuse Problem: Chronic (7) HTN (hypertension) Problem: Acute
--- NOTE | 2017-04-05 20:14 | PN ---
Dictated Progress Note - Date and Time Seen: Date: 04/05/17 Time: 20:12 - Progress Note Narrative: Vital Signs - Last Taken Temp 36.4 C L 04/05/17 19:17 Pulse 60 04/05/17 19:17 Resp 16 04/05/17 19:17 BP 144/79 04/05/17 19:17 Pulse Ox 96 04/05/17 19:17 POD#5 s/p Rohit procedure for perforated sigmoid diverticulosis VS normal, pain tolerable. Tolerating full liquids. Had stool and gas through colostomy and changed appliance himself. Will advance diet with possible discharge tomorrow.
[2017-04-05] MEDS: LISINOPRIL 5 MG TABLET PO SCH (20:20)
[2017-04-06] MEDS: oxyCODONE HCL/ACETAMINOPHEN 1 TAB TABLET PO PRN ×3 (00:01→17:00)
[2017-04-06] MEDS: PIPERACILLIN SODIUM/TAZOBACTAM 3.375 GM in DEXTROSE 5 % IN WATER 100 ML IV SCH ×6 (00:59→17:00)
[2017-04-06] MEDS: POTASSIUM CHLORIDE IV SCH ×3 (01:34→12:09)
[2017-04-06] MEDS: DEXTROSE 5% IV SCH ×3 (01:34→12:09)
[2017-04-06] MEDS: NORMAL SALINE IV SCH ×3 (01:34→12:09)
[2017-04-06 06:09] LABS: Hematocrit 38.1 % (42.0-52.0); Mean Corpuscular Hgb Conc 34.1 g/dl (32-36); Neutrophil # 5.5 K/mm3 (1.3-6.0); Neutrophil % 60.2 % (42-75.0); Platelet Count 340 K/mm3 (150-450); Red Blood Count 4.48 M/mm3 (4.7-6.0); Red Cell Distribution Width 13.4 % (11.5-14.0); White Blood Count 9.2 K/mm3 (4.0-10.5)
[2017-04-06 06:11] LABS: Anion Gap 14.4 mmol/L (6.8-13.8); BUN/Creatinine Ratio 6.3 (9.0-21.6); Calcium * 9.3 mg/dL (7.9-10.9); Carbon Dioxide 26.6 mmol/L (24-32.6); Estimated Creat Clear 99.3
[2017-04-06] MEDS: PANTOPRAZOLE SODIUM 40 MG TABLET.EC PO SCH (07:44)
[2017-04-06 10:52] VITALS: BP 124/68
--- NOTE | 2017-04-06 19:06 | DS ---
(1) Diverticulitis of large intestine with perforation without bleeding Problem: Acute Description of Stay: He underwent Rohit procedure for acute sigmoid diverticulitis with perforation (recurrent/chronic) on 04/01/17 He received pre-op and post op antibiotics. VTE prophylaxis was SCD's and early ambulation due to concern for potential surgical site bleeding. Lopez cath for <48hrs to monitor urine output. NG removed when nausea resolved. VS remained normal. Pain was controlled with SCHOOL SPEECH THERAPIST and oral analgesics. Kept at NPO status until evidence of colostomy function then diet advanced. Wound packed open and changed daily. Ambulating without assist. Colostomy teaching done. Home to resume usual meds. Rx Percocet 5/325mg for pain. Will arrange to see patient 04/07/17. Has #'s to call for problems. Procedures Performed: see notes below - Rohit procedure (sigmoid resection with end descending colostomy 04/01/17) Discharge Disposition: Home self care Disposition: Home self-care Condition: Good Discharge Activity: Activity as tolerated, No Lifting Discharge Diet: General/regular food Consultation Done:: Dr Bocanegra Problem Oriented Discharge Instructions to Patient/Family: Colostomy Home Guide , Adult Additional Patient Instructions (free text): Call for f/u apt with Dr Bocanegra [phone] Complete Home Medications List: Complete Home Medication List: Gabapentin 900 mg PO TID 12/15/16 oxyCODONE HCL/ACETAMINOPHEN [Percocet 5 MG/325 MG] 2 tab PO Q6H PRN #30 tablet 04/06/17
== END 2017-04-06 19:45 | disposition home or self-care (01) | DRG 330 ==
LOC: ER 11:19 → SCU 17:39 → MS 04-01 08:27
PROVIDERS: ADMIT Internal Medicine; ATTEND Internal Medicine
PROC: 0D1M0Z4 Bypass Descending Colon to Cutaneous, Open Approach (ICD-10-PCS; 2017-03-31)
PROC: 0DBN0ZZ Excision of Sigmoid Colon, Open Approach (ICD-10-PCS; principal; 2017-03-31 17:00)
DX: K57.20 Diverticulitis of large intestine with perforation and abscess without bleeding (principal); R12 Heartburn; K21.9 Gastro-esophageal reflux disease without esophagitis; F32.9 Major depressive disorder, single episode, unspecified; F17.210 Nicotine dependence, cigarettes, uncomplicated
CPT/HCPCS: 36415; 44143; 74020; 74177; 80048; 80053; 81001; 82150; 83605; 83690; 83735; 84100; 84145; 85025; 85652; 86140; 87040; 87070; 88307; 93005; 96365; 96367; 96375; 99285; J2405